=== PATIENT | female | born 1945 | race Caucasian/White ===

== ENCOUNTER 2017-09-17 08:27 | Emergency (ER) | payer MEDICARE, OTHER ==
[2017-09-17] MEDS ORDERED: DIPH,PERTUS(ACELL)TETVAC-LF 0.5 ML VIAL IM ONE (08:46)
--- NOTE | 2017-09-17 09:37 | CT ---
EXAMINATION TYPE: CT brain christine wo con DATE OF EXAM: 09/17/2017 COMPARISON: NONE HISTORY: fall today with chin and facial swelling CT DLP: 1731.9 mGycm, Automated exposure control for dose reduction was used. CONTRAST: None CT of the brain is performed utilizing 3 mm thick sections through the posterior fossa and 3 mm thick sections through the remaining calvarium. Study is performed within 24 hours of arrival to the hospital. No abnormal hyperdensity is present to suggest an acute intracranial hemorrhage. No mass lesion is evident. No acute infarcts are evident. There is some scattered deep white matter hypodensity, likely on the basis of chronic white matter ischemic changes. Ventricles and sulci are appropriate for the patient age. The frontal sinuses are aplastic. There is some fluid through the nasal passage. Small retention cyst within the left maxillary sinus. IMPRESSIONS: 1. Chronic appearing white matter changes. CT cervical spine. COMPARISON: None CT of the cervical spine is performed in the axial plane at 2 mm thick sections. Reconstructed image s in the coronal, and sagittal plane are reviewed on the computer. No acute fractures are evident. There appears to be a minimal grade 1 spondylolisthesis of C4 anteriorly on C5. Disc space narrowing is present C5-6. Foraminal stenosis present on the left at C3-4. Some central sp urring is present at C5. Moderate left foraminal stenosis at C5-6 is present. There is a tiny ossification at C5-6 disc level. Tiny avulsion from C6 is not excluded. This may be a chronic change. Correlate with location of the patient's pain. Vertebral body heights are preserved. No spinal canal stenosis is evident. IMPRESSIONS: 1. Tiny ossification posterior to the central C5-6 disc level. This could be calcification along the ligament. Tiny avulsion from C6 is not excluded. Correlate with the location of the patient's pain.
--- NOTE | 2017-09-17 09:40 | ED ---
Fall HPI - General Chief Complaint: Fall Stated Complaint: FALL Time Seen by Provider: 09/17/17 08:31 Source: patient, EMS, old records reviewed Mode of arrival: EMS Limitations: no limitations - History of Present Illness Initial Comments: This is a 72-year-old female presents emergency Department chief complaint of trip and fall. Patient states that she walking too fast this morning lost her balance and fell forward onto carpet. Patient complains of pain over her nose, chin region. She states that she did have a bloody nose which has subsided. She denies head, neck pain. She does complain of a laceration to her right forearm region. She is unsure when her last tetanus was. Patient denies any hip, back pain the usual denies any lower extremity injuries. Patient was transported wrist from via EMS. Patient was given no medications. Patient denies loss consciousness. - Related Data Home Medications Medication Instructions Recorded Confirmed Atenolol [Tenormin] 50 mg PO DAILY 08/13/17 09/17/17 Budesonide/Formoterol Fumarate 2 puff INHALATION RT-BID 08/13/17 09/17/17 [Symbicort 160-4.5 Mcg Inhaler] Clotrimazole Cream [Lotrimin Cream] 1 applic TOPICAL BID 08/13/17 09/17/17 Furosemide [Lasix] 20 mg PO DAILY 08/13/17 09/17/17 Metolazone [Zaroxolyn] 2.5 mg PO WEEKLY 08/13/17 09/17/17 Naproxen Sodium [Aleve] 220 mg PO BID PRN 08/13/17 09/17/17 Omeprazole 20 mg PO DAILY 08/13/17 09/17/17 Sertraline [Zoloft] 200 mg PO DAILY 08/13/17 09/17/17 Spironolactone 50 mg PO DAILY 08/13/17 09/17/17 Albuterol Inhaler [Ventolin Hfa 2 puff INHALATION RT-Q6H PRN 09/17/17 09/17/17 Inhaler] Albuterol Nebulized [Ventolin 2.5 mg INHALATION RT-QID PRN 09/17/17 09/17/17 Nebulized] DULoxetine HCL [Cymbalta] 20 mg PO DAILY 09/17/17 09/17/17 Meclizine [Antivert] 25 mg PO DAILY PRN 09/17/17 09/17/17 Potassium Chloride [K-Tab ER] 10 meq PO BID 09/17/17 09/17/17 Prochlorperazine [Compazine] 5 mg PO DAILY 09/17/17 09/17/17 predniSONE 50 mg PO DAILY 09/17/17 09/17/17 Previous Rx's Medication Instructions Recorded Amoxicillin/Potassium Clav 1 tab PO Q12HR #20 tab 09/17/17 [Augmentin 875-125 Tablet] Hydrocodone/Acetaminophen [[place] 1 tab PO Q6HR PRN #15 tab 09/17/17 5-325] Allergies Allergy/AdvReac Type Severity Reaction Status Date / Time Sulfa (Sulfonamide Allergy Rash/Hives Verified 09/17/17 09:50 Antibiotics) morphine AdvReac Nausea & Verified 09/17/17 09:50 Vomiting Review of Systems ROS Statement: Those systems with pertinent positive or pertinent negative responses have been documented in the HPI. ROS Other: All systems not noted in ROS Statement are negative. Past Medical History Past Medical History: Hypertension Additional Past Medical History / Comment(s): pneumonia, fibromyalgia, osteoarthritis History of Any Multi-Drug Resistant Organisms: MRSA Date of last positivie culture/infection: 08/13/17 MDRO Source:: LEG Past Surgical History: Appendectomy, Breast Surgery, Cholecystectomy, Hysterectomy, Orthopedic Surgery Additional Past Surgical History / Comment(s): Bilateral knee replacements Past Psychological History: Anxiety, Depression Smoking Status: Former smoker Past Alcohol Use History: None Reported Past Drug Use History: None Reported - Past Family History Mother Family Medical History: No Reported History Father Family Medical History: No Reported History General Exam Limitations: no limitations General appearance: alert, in no apparent distress Head exam: Present: atraumatic, normocephalic, normal inspection Eye exam: Present: normal appearance, PERRL, EOMI. Absent: scleral icterus, conjunctival injection, periorbital swelling, periorbital tenderness ENT exam: Present: normal oropharynx, mucous membranes moist, TM's normal bilaterally, normal external ear exam, other (There is dry blood noted in bilateral nares, moderate tenderness over the nasal bridge with edema and ecchymosis). Absent: normal exam (There is some ecchymosis noted of the anterior mandible region patient has no trismus) Neck exam: Present: normal inspection, full ROM. Absent: tenderness, meningismus, lymphadenopathy Respiratory exam: Present: normal lung sounds bilaterally. Absent: respiratory distress, wheezes, rales, rhonchi, stridor, chest wall tenderness Cardiovascular Exam: Present: regular rate, normal rhythm, normal heart sounds. Absent: systolic murmur, diastolic murmur, rubs, gallop, clicks Extremities exam: Present: other (There are multiple areas of ecchymosis over bilateral upper extremities most appear old, there is a 4 cm skin tear with some subcutaneous tissue noted there is no active bleeding patient is full range of motion of and nontender, remaining extremity exam within normal limits) Back exam: Present: full ROM. Absent: tenderness Neurological exam: Present: alert, oriented X3, CN II-XII intact, reflexes normal, other (Finger to nose intact bilaterally without overshooting). Absent : motor sensory deficit Skin exam: Present: warm, dry Course Vital Signs 09/17/17 08:30 Temperature 96.8 F L Pulse Rate 67 Respiratory 16 Rate Blood Pressure 138/72 O2 Sat by Pulse 94 L Oximetry Medical Decision Making - Medical Decision Making 72-year-old female presented emergency department for Fall. She Has a Nasal Bone Fracture, Had Epistaxis and Right Wrist/Forearm Laceration. The patient's laceration is a skin tear there is no closure done secondary to no skin to close. This was thoroughly cleaned by nursemichel. Patient will be discharged on antibiotics for her skin tear, nasal bone fracture. She'll follow up with ENT. Patient CT showed cannot exclude a C6 fracture though she has no tenderness and had no complaints of neck pain. Patient be discharged with pain medication with close follow-up and return parameters were discussed Disposition Clinical Impression: Fall, Nasal fracture, Epistaxis, Skin tear of right upper extremity, Facial contusion Disposition: HOME SELF-CARE Condition: Stable Instructions: Nasal Fracture (ED) Additional Instructions: Please return to the Emergency Department if symptoms worsen or any other concerns. Prescriptions: Amoxicillin/Potassium Clav [Augmentin 875-125 Tablet] 1 tab PO Q12HR #20 tab Hydrocodone/Acetaminophen [[place] 5-325] 1 tab PO Q6HR PRN #15 tab PRN Reason: Pain Referrals: Leeann Ansari DO [Primary Care Provider] - 1-2 days Wale Willett DO [Doctor of Osteopathic Medicine] - 1-2 days Time of Disposition: 10:02
--- NOTE | 2017-09-17 09:44 | CT ---
EXAMINATION TYPE: CT facial bones wo con DATE OF EXAM: 09/17/2017 COMPARISON: NONE HISTORY: fall today with chin and facial swelling CT DLP: 654.8 mGycm CONTRAST: None The paranasal sinuses are examined in the axial plane at 2 mm thick sections. Reconstructed images i n the coronal plane were obtained. The hypopharynx is visualized appears normal. Mandible and maxilla within the [id number]-uz-ynlv is withou t acute changes. Left maxillary sinus contains a small retention cyst inferiorly. Maxillary spine is intact. There is left septal deviation. Mid septal fracture is not excluded., Series 2 image 53. No anterior septal fr acture is evident however in the axial plane. Small anterior septal fracture may be present in the co allison plane, series 5 image 7. Scattered areas of ethmoid air cell mucosal thickening is present. S mall amount of mucosal thickenings within the anterior left sphenoid sinus. The frontal sinuses are aplastic. The septum is evaluated. There is septal deviation to the left. A left septal spur is also noted.. The right ostiomeatal unit is obstructed at the hiatus semilunaris. The left ostiomeatal unit is headley nt. IMPRESSIONS: 1. Suspected small fractures along the anterior and mid septum. 2. Left septal deviation likely chronic. 3. Scattered areas of mucosal thickening discussed above.
[2017-09-17] MEDS ORDERED: HYDROcodone/APAP 5-325MG 1 EACH TAB PO STA (09:58)
--- NOTE | 2017-09-17 10:06 | ED ---
Medical Decision Making - Medical Decision Making Additionally patient will be given a prescription for [place] J collar. Patient' s CT showed possible avulsion fracture is less likely because she has no tenderness patient will follow-up with Dr. Garduno Disposition Clinical Impression: Fall, Nasal fracture, Epistaxis, Skin tear of right upper extremity, Facial contusion Disposition: HOME SELF-CARE Condition: Stable Instructions: Nasal Fracture (ED) Additional Instructions: Please return to the Emergency Department if symptoms worsen or any other concerns. Prescriptions: Amoxicillin/Potassium Clav [Augmentin 875-125 Tablet] 1 tab PO Q12HR #20 tab Hydrocodone/Acetaminophen [[place] 5-325] 1 tab PO Q6HR PRN #15 tab PRN Reason: Pain Referrals: Wale Willett DO [Doctor of Osteopathic Medicine] - 1-2 days Leeann Ansari DO [Primary Care Provider] - 1-2 days Israel Peña DO [Doctor of Osteopathic Medicine] - 1-2 days
[2017-09-17 10:35] VITALS: BP 113/58; PULSE 65; RESP 18; TEMP 96.6
== END 2017-09-17 10:22 | disposition home or self-care (01) ==
LOC: EC 08:27
DX: S02.2XXA Fracture of nasal bones, initial encounter for closed fracture (principal); S51.811A Laceration without foreign body of right forearm, initial encounter; S00.83XA Contusion of other part of head, initial encounter; I10 Essential (primary) hypertension; Z23 Encounter for immunization; Z86.14 Personal history of Methicillin resistant Staphylococcus aureus infection; Z96.653 Presence of artificial knee joint, bilateral; Z87.891 Personal history of nicotine dependence; Z79.51 Long term (current) use of inhaled steroids; Z79.52 Long term (current) use of systemic steroids; Z79.899 Other long term (current) drug therapy; Z88.2 Allergy status to sulfonamides; Z88.5 Allergy status to narcotic agent; W01.0XXA Fall on same level from slipping, tripping and stumbling without subsequent striking against object, initial encounter; Y93.01 Activity, walking, marching and hiking
CPT/HCPCS: 70450; 70486; 72125; 90471; 90715; 99284

== ENCOUNTER 2019-10-20 10:21 | Emergency (ER) | payer MEDICARE, OTHER ==
[2019-10-20] MEDS ORDERED: SODIUM CHLORIDE 0.9% 1,000 ML IV STA (10:41)
[2019-10-20] MEDS ORDERED: methylPREDNISolone SOD SUCCI 125 MG/2 ML VIAL IV STA (10:41)
[2019-10-20] MEDS ORDERED: IPRATROPIUM-ALBUTEROL 3 ML NEB INHALATION STA ×2 (10:41→12:39)
--- NOTE | 2019-10-20 10:48 | ED ---
SOB HPI - General Chief Complaint: Shortness of Breath Stated Complaint: SOB Time Seen by Provider: 10/20/19 10:21 Source: patient, EMS, RN notes reviewed Mode of arrival: EMS Limitations: no limitations - History of Present Illness Initial Comments: This is a 74-year-old female with a history of COPD who states she had the onset shortness of breath with a slight cough and some phlegm over last 4 days she was diagnosed with bronchitis 2 weeks ago. She was brought in by EMS he reported a low-grade temperature 99.4. She was afebrile upon arrival. No chest pain no overt fevers chills sweats at home no rhinorrhea earaches sore throat no other modifying factors MD Complaint: shortness of breath - Related Data Home Medications Medication Instructions Recorded Confirmed Atenolol [Tenormin] 50 mg PO DAILY 08/13/17 10/20/19 Budesonide/Formoterol Fumarate 2 puff INHALATION RT-BID 08/13/17 10/20/19 [Symbicort 160-4.5 Mcg Inhaler] Furosemide [Lasix] 20 mg PO DAILY PRN 08/13/17 10/20/19 Metolazone [Zaroxolyn] 2.5 mg PO Q7D 08/13/17 10/20/19 Omeprazole 20 mg PO DAILY 08/13/17 10/20/19 Spironolactone 50 mg PO DAILY 08/13/17 10/20/19 Fluticasone Nasal [place] [Flonase 1 spr EA NOSTRIL DAILY 10/20/19 10/20/19 Nasal [place]] Loratadine [Claritin] 10 mg PO DAILY 10/20/19 10/20/19 Meclizine [Antivert] 25 mg PO Q8H PRN 10/20/19 10/20/19 Montelukast [Singulair] 10 mg PO DAILY 10/20/19 10/20/19 Nystatin 1 applic TOPICAL BID 10/20/19 10/20/19 Previous Rx's Medication Instructions Recorded Ipratropium-Albuterol Nebulize 1 neb INHALATION Q6HR PRN #120 neb 10/20/19 [Duoneb 0.5 mg-3 mg/3 ml Soln] predniSONE [Deltasone] 20 mg PO BID #10 tab 10/20/19 Allergies Allergy/AdvReac Type Severity Reaction Status Date / Time Sulfa (Sulfonamide Allergy Rash/Hives Verified 10/20/19 10:25 Antibiotics) morphine AdvReac Nausea & Verified 10/20/19 10:25 Vomiting Review of Systems ROS Statement: Those systems with pertinent positive or pertinent negative responses have been documented in the HPI. ROS Other: All systems not noted in ROS Statement are negative. Past Medical History Past Medical History: Hypertension Additional Past Medical History / Comment(s): pneumonia, fibromyalgia, osteoarthritis History of Any Multi-Drug Resistant Organisms: MRSA Date of last positivie culture/infection: 08/13/17 MDRO Source:: LEG Past Surgical History: Appendectomy, Breast Surgery, Cholecystectomy, Hysterectomy, Orthopedic Surgery Additional Past Surgical History / Comment(s): Bilateral knee replacements Past Psychological History: Anxiety, Depression Smoking Status: Former smoker Past Alcohol Use History: None Reported Past Drug Use History: None Reported - Past Family History Mother Family Medical History: No Reported History Father Family Medical History: No Reported History General Exam - General Exam Comments Initial Comments: This is a well-developed well-nourished awake alert oriented 3 female Limitations: no limitations General appearance: alert, in no apparent distress Head exam: Present: atraumatic, normocephalic, normal inspection Eye exam: Present: normal appearance, PERRL, EOMI. Absent: scleral icterus, conjunctival injection, periorbital swelling ENT exam: Present: mucous membranes dry Neck exam: Present: normal inspection. Absent: tenderness, meningismus, lymphadenopathy Respiratory exam: Present: normal lung sounds bilaterally. Absent: respiratory distress, wheezes, rales, rhonchi, stridor Cardiovascular Exam: Present: regular rate, normal rhythm, normal heart sounds. Absent: systolic murmur, diastolic murmur, rubs, gallop, clicks GI/Abdominal exam: Present: soft, normal bowel sounds. Absent: distended, t enderness, guarding, rebound, rigid Extremities exam: Present: normal inspection, full ROM, normal capillary refill. Absent: tenderness, pedal edema, joint swelling, calf tenderness Back exam: Present: normal inspection Neurological exam: Present: alert, oriented X3, CN II-XII intact Psychiatric exam: Present: normal affect, normal mood Skin exam: Present: warm, dry, intact, normal color. Absent: rash Course Vital Signs 10/20/19 10/20/1920 10:31 10:44 10:47 Temperature 98.9 F Pulse Rate 116 H 113 H Respiratory 20 Rate Blood Pressure 146/77 O2 Sat by Pulse 89 L 95 Oximetry 10/20/19 10/20/19 10/20/19 10:56 11:00 11:30 Temperature Pulse Rate 106 H 108 H Respiratory Rate Blood Pressure 146/77 159/91 O2 Sat by Pulse 99 99 Oximetry 10/20/19 10/20/19 10/20/19 12:00 12:30 13:05 Temperature Pulse Rate 101 H 97 96 Respiratory Rate Blood Pressure 162/87 169/82 O2 Sat by Pulse 100 100 Oximetry 10/20/19 13:15 Temperature Pulse Rate 97 Respiratory Rate Blood Pressure O2 Sat by Pulse Oximetry Medical Decision Making - Medical Decision Making I did review the imaging no evidence of acute findings at did discuss Pfizer the patient reevaluation she was had markedly improved aeration. Patient does want to go home after his second updraft she was improved and will go home she does need material for her nebulizer at home she'll be placed also on a short course of steroids - Lab Data Result diagrams: 10/20/19 10:35 10/20/19 10:35 Lab Results 10/20/19 10/20/19 10/20/19 Range/Units 10:35 10:35 10:35 WBC 8.1 (3.8-10.6) k/uL RBC 4.15 (3.80-5.40) m/uL Hgb 12.2 (11.4-16.0) gm/dL Hct 35.7 (34.0-46.0) % MCV 86.0 (80.0-100.0) fL MCH 29.4 (25.0-35.0) pg MCHC 34.2 (31.0-37.0) g/dL RDW 15.9 H (11.5-15.5) % Plt Count 118 L (150-450) k/uL Neutrophils % 79 % Lymphocytes % 13 % Monocytes % 3 % Eosinophils % 3 % Basophils % 0 % Neutrophils # 6.4 (1.3-7.7) k/uL Lymphocytes # 1.1 (1.0-4.8) k/uL Monocytes # 0.3 (0-1.0) k/uL Eosinophils # 0.3 (0-0.7) k/uL Basophils # 0.0 (0-0.2) k/uL Poikilocytosis Slight PT 10.8 (9.0-12.0) sec INR 1.1 (<1.2) APTT 22.7 (22.0-30.0) sec Sodium 137 (137-145) mmol/L Potassium 4.2 (3.5-5.1) mmol/L Chloride 101 (98-107) mmol/L Carbon Dioxide 27 (22-30) mmol/L Anion Gap 9 mmol/L BUN 16 (7-17) mg/dL Creatinine 1.03 (0.52-1.04) mg/dL Est GFR (CKD-EPI)AfAm 61 (>60 ml/min/1.73 sqM) Est GFR (CKD-EPI)NonAf 53 (>60 ml/min/1.73 sqM) Glucose 106 H (74-99) mg/dL Plasma Lactic Acid [place] (0.7-2.0) mmol/L Calcium 9.7 (8.4-10.2) mg/dL Magnesium 1.6 (1.6-2.3) mg/dL Total Bilirubin 1.2 (0.2-1.3) mg/dL AST 24 (14-36) U/L ALT 13 (4-34) U/L Alkaline Phosphatase 70 (38-126) U/L Creatine Kinase 42 (30-135) U/L Troponin I (0.000-0.034) ng/mL NT-Pro-B Natriuret Pep pg/mL Total Protein 7.3 (6.3-8.2) g/dL Albumin 3.8 (3.5-5.0) g/dL 10/20/19 10/20/19 10/20/19 Range/Units 10:35 10:35 10:35 WBC (3.8-10.6) k/uL RBC (3.80-5.40) m/uL Hgb (11.4-16.0) gm/dL Hct (34.0-46.0) % MCV (80.0-100.0) fL MCH (25.0-35.0) pg MCHC (31.0-37.0) g/dL RDW (11.5-15.5) % Plt Count (150-450) k/uL Neutrophils % % Lymphocytes % % Monocytes % % Eosinophils % % Basophils % % Neutrophils # (1.3-7.7) k/uL Lymphocytes # (1.0-4.8) k/uL Monocytes # (0-1.0) k/uL Eosinophils # (0-0.7) k/uL Basophils # (0-0.2) k/uL Poikilocytosis PT (9.0-12.0) sec INR (<1.2) APTT (22.0-30.0) sec Sodium (137-145) mmol/L Potassium (3.5-5.1) mmol/L Chloride (98-107) mmol/L Carbon Dioxide (22-30) mmol/L Anion Gap mmol/L BUN (7-17) mg/dL Creatinine (0.52-1.04) mg/dL Est GFR (CKD-EPI)AfAm (>60 ml/min/1.73 sqM) Est GFR (CKD-EPI)NonAf (>60 ml/min/1.73 sqM) Glucose (74-99) mg/dL Plasma Lactic Acid [place] 1.5 (0.7-2.0) mmol/L Calcium (8.4-10.2) mg/dL Magnesium (1.6-2.3) mg/dL Total Bilirubin (0.2-1.3) mg/dL AST (14-36) U/L ALT (4-34) U/L Alkaline Phosphatase (38-126) U/L Creatine Kinase (30-135) U/L Troponin I <0.012 (0.000-0.034) ng/mL NT-Pro-B Natriuret Pep 78 pg/mL Total Protein (6.3-8.2) g/dL Albumin (3.5-5.0) g/dL - EKG Data -: EKG Interpreted by Me EKG shows normal: sinus rhythm (Sinus tachycardia rate of 905257 QRS duration 76 QT since QTC 344/456 low-voltage nonspecific anterior configuration) - Radiology Data Radiology results: report reviewed (I did review the imaging and report no acute findings.), image reviewed Disposition Clinical Impression: Acute exacerbation of chronic obstructive pulmonary disease Disposition: HOME SELF-CARE Condition: Good Instructions (If sedation given, give patient instructions): COPD (Chronic Obstructive Pulmonary Disease) (ED) Additional Instructions: Medications sent here for for [facility] pharmacy Prescriptions: predniSONE [Deltasone] 20 mg PO BID #10 tab Ipratropium-Albuterol Nebulize [Duoneb 0.5 mg-3 mg/3 ml Soln] 1 neb INHALATION Q6HR PRN #120 neb PRN Reason: Dyspnea Is patient prescribed a controlled substance at d/c from ED?: No Referrals: Leeann Ansari DO [Primary Care Provider] - 1-2 days
[2019-10-20 11:00] LABS: Basophils % (A) 0 %; Eosinophils # (A) 0.3 k/uL (0-0.7); Eosinophils % (A) 3 %; HCT 35.7 % (34.0-46.0); HGB 12.2 gm/dL (11.4-16.0); Lymphocytes # (A) 1.1 k/uL (1.0-4.8); Lymphocytes % (A) 13 %; MCH 29.4 pg (25.0-35.0); MCHC 34.2 g/dL (31.0-37.0); Mean Platelet Volume 8.4; Monocytes # (A) 0.3 k/uL (0-1.0); Monocytes % (A) 3 %; Neutrophils # (A) 6.4 k/uL (1.3-7.7); Neutrophils % (A) 79 %; Platelet Count 118 k/uL (150-450); Poikilocytosis Slight; RBC 4.15 m/uL (3.80-5.40); RDW 15.9 % (11.5-15.5); WBC 8.1 k/uL (3.8-10.6)
[2019-10-20 11:02] LABS: Albumin 3.8 g/dL (3.5-5.0); Calcium 9.7 mg/dL (8.4-10.2); Magnesium 1.6 mg/dL (1.6-2.3); Potassium 4.2 mmol/L (3.5-5.1); Total Bilirubin 1.2 mg/dL (0.2-1.3); Total Protein 7.3 g/dL (6.3-8.2)
[2019-10-20 11:31] LABS: INR 1.1 (<1.2); Partial Thromboplastin Time 22.7 sec (22.0-30.0); Prothrombin Time 10.8 sec (9.0-12.0)
--- NOTE | 2019-10-20 11:32 | XR ---
EXAMINATION TYPE: XR chest 1V DATE OF EXAM: 10/20/2019 COMPARISON: 11/29/2015 HISTORY: Increasing shortness of breath for 3 days and recent treatment for bronchitis TECHNIQUE: Single frontal view of the chest is obtained. FINDINGS: There is no focal air space opacity, pleural effusion, or pneumothorax seen. Right hemidia phragm eventration is seen. The cardiac silhouette size is upper limits of normal size. The osseou s structures are intact. IMPRESSION: No acute cardiopulmonary process.
[2019-10-20 13:46] VITALS: BP 164/74; PULSE 99; RESP 18; TEMP 98.3
== END 2019-10-20 13:46 | disposition home or self-care (01) ==
LOC: EC 10:21
DX: J44.1 Chronic obstructive pulmonary disease with (acute) exacerbation (principal); I10 Essential (primary) hypertension; M19.90 Unspecified osteoarthritis, unspecified site; Z87.891 Personal history of nicotine dependence; Z88.2 Allergy status to sulfonamides; Z88.5 Allergy status to narcotic agent; Z79.51 Long term (current) use of inhaled steroids; Z79.899 Other long term (current) drug therapy; Z86.14 Personal history of Methicillin resistant Staphylococcus aureus infection; Z87.01 Personal history of pneumonia (recurrent); Z96.653 Presence of artificial knee joint, bilateral
CPT/HCPCS: 99285; 96374; 96361 ×3; 36415; 94640 ×2; 93005; 83880; 80053; 82550; 83605; 83735; 84484; 85025; 85610; 85730; 71045; J2930

== ENCOUNTER → 2020-09-14 | Outpatient (CLI) | payer MEDICARE, OTHER ==
--- NOTE | 2020-09-14 13:58 | P.SLEEP ---
History of Present Illness H&P Date: 09/14/20 this is a 74-year-old female patient with known history of COPD and obstructive sleep apnea. The patient was diagnosed having obstructive sleep apnea many years back. Currently she is not undergoing any treatment. She was told back then at a time of her diagnosis that she had a severe case with a probable AHI of more than 90. I do not have any documentation of her original polysomnogram. Currently she is on no treatment. His sleep quality has gotten very poor. She is unable to sleep in her bed. She is currently living in her living room where she is sleeping also and she watches TV and sleeps in a recliner. She goes to bed at various times and she wakes up at various times. Her sleep was very much fragmented and the patient wakes up every 2 hours with snoring and gasping for air. She also has cramping in lower extremities and nocturia. She wakes up very tired and sleepy during the day and she takes several naps. Her sleep schedule is becoming more and more irregular and her sleep is becoming more fragmented. She feels non-refreshed after a nap. No recent weight gain. No sleep paralysis. No hallucinations. No cataplexy. No chest pain. No cough sputum production chest tightness or wheezing. Her body weight has been essentially stable at 223 pounds. She has severe arthritis with bilateral knee surgeries in the patient's chronic back pain and she has difficulty with mobility and gait and she is moving around with the help of a power chair. Nevertheless, despite her limitation, she is very much interested in going back on CPAP therapy once the diagnosis of sleep apnea is confirmed.. Her current Nageezi score is 21. No substance abuse. No alcoholism. She is an ex-smoker and she quit smoking back in 2010 inches known to have COPD and she has been seen in our pulmonary clinic regarding her COPD and currently she is on a combination of Symbicort and one of the let she was on as the need basis. She also gives history of coronary artery disease and apparently she has had previous myocardial infarctions. No history of congestion heart failure. She is known to have hypertension and her blood pressure is under suboptimal control for now. No head trauma. No stroke. No cardiac arrhythmias. No atrial fibrillation. Her current Nageezi score is 21.she also has chronic pain and she has history of fibromyalgia. Review of Systems Constitutional: Reports daytime sleepiness, Reports fatigue, Reports weakness, Reports weight gain Eyes: denies as per HPI, denies blurred vision, denies bulging eye, denies decreased vision, denies diplopia, denies discharge, denies dry eye, denies i rritation, denies itching, denies pain, denies photophobia, denies loss of peripheral vision, denies loss of vision, denies tunnel vision/blind spots Ears: deny: decreased hearing, ear discharge, earache, tinnitus Ears, nose, mouth and throat: Reports as per HPI (the patient is edentulous and she has dentures) Breasts: absent: as per HPI (post bilateral mastectomy for fibrocystic disease) Cardiovascular: Denies chest pain, Denies shortness of breath Respiratory: Reports cough, Reports dyspnea, Reports snoring, Reports wheezing Gastrointestinal: Reports as per HPI Genitourinary: Reports as per HPI Menstruation: Reports as per HPI Musculoskeletal: Reports as per HPI, Reports limitation of motion, Reports low back pain Musculoskeletal: absent: ankle pain, ankle stiffness, ankle swelling Integumentary: Reports as per HPI Neurological: Reports as per HPI, Reports gait dysfunction, Reports weakness Psychiatric: Reports as per HPI Endocrine: Reports as per HPI, Reports fatigue Hematologic/Lymphatic: Reports as per HPI Allergic/Immunologic: Reports as per HPI Past Medical History Past Medical History: Coronary Artery Disease (CAD), COPD, Fibromyalgia, Hypertension, Musculoskeletal Disorder, Sleep Apnea/CPAP/BIPAP Additional Past Medical History / Comment(s): chronic back pain, severe osteoarthritis and the patient has difficult mobility and the patient is around with the help of a power chair, previous history of obstructive sleep apnea, hypertension, fibromyalgia, osteoarthritis, fibrocystic disease of the breast History of Any Multi-Drug Resistant Organisms: MRSA Date of last positivie culture/infection: 08/13/17 MDRO Source:: LEG Past Surgical History: Appendectomy, Breast Surgery, Cholecystectomy, Hysterectomy, Orthopedic Surgery Additional Past Surgical History / Comment(s): Bilateral knee replacements Past Psychological History: Anxiety, Depression Smoking Status: Former smoker (the patient quit smoking in 2010. Prior to that the patient was smoking around 2 pack of cigarettes a day since age of 14.) Past Alcohol Use History: None Reported Past Drug Use History: None Reported - Past Family History Mother Family Medical History: No Reported History Father Family Medical History: No Reported History Medications and Allergies Home Medications Medication Instructions Recorded Confirmed Type Budesonide/Formoterol Fumarate 2 puff INHALATION RT-BID 08/13/17 10/20/19 History [Symbicort 160-4.5 Mcg Inhaler] Furosemide [Lasix] 20 mg PO DAILY PRN 08/13/17 10/20/19 History Omeprazole 20 mg PO DAILY 08/13/17 10/20/19 History Spironolactone 50 mg PO DAILY 08/13/17 10/20/19 History atenoloL [Tenormin] 50 mg PO DAILY 08/13/17 10/20/19 History metOLazone [Zaroxolyn] 2.5 mg PO Q7D 08/13/17 10/20/19 History Fluticasone Nasal [place] [Flonase 1 spr EA NOSTRIL DAILY 10/20/19 10/20/19 History Nasal [place]] Ipratropium-Albuterol Nebulize 1 neb INHALATION Q6HR PRN #120 neb 10/20/19 Rx [Duoneb 0.5 mg-3 mg/3 ml Soln] Loratadine [Claritin] 10 mg PO DAILY 10/20/19 10/20/19 History Meclizine [Antivert] 25 mg PO Q8H PRN 10/20/19 10/20/19 History Montelukast [Singulair] 10 mg PO DAILY 10/20/19 10/20/19 History Nystatin 1 applic TOPICAL BID 10/20/19 10/20/19 History predniSONE [Deltasone] 20 mg PO BID #10 tab 10/20/19 Rx Allergies Allergy/AdvReac Type Severity Reaction Status Date / Time Sulfa (Sulfonamide Allergy Rash/Hives Verified 10/20/19 10:25 Antibiotics) morphine AdvReac Nausea & Verified 10/20/19 10:25 Vomiting Physical Exam The patient appeared well nourished and normally developed. Vital signs as documented. Head exam is unremarkable. No scleral icterus or corneal arcus noted. Neck is without jugular venous distension, thyromegaly, or carotid bruits. the patient has a Mallampati class IV. The patient is edentulous.Carotid upstrokes are brisk bilaterally. Lungs are clear to auscultation and percussion. Cardiac exam reveals the PMI to be normally sized and situated. Rhythm is regular. First and second heart sounds normal. No murmurs, rubs or gallops. Abdominal exam reveals normal bowel sounds, no masses, no organomegaly and no aortic enlargement. Extremities are nonedematous and both femoral and pedal pulses are normal.Examination of the skin revealed no evidence of significant rashes, suspicious appearing nevi or other concerning lesions.Neurologically, the patient is awake and alert and the patient does not have any focal neurological deficit. Cranial nerves are essentially intact. Assessment and Plan Plan: 1 obstructive sleep apnea, symptomatic and her condition is been further complicated by poor sleep hygiene measures, irregular sleep schedule in addition to sleep fragmentation related to obstructive sleep apnea. For now, the patient sleeping in a recliner. She has poor sleep hygiene measures. She is quite somnolent and sleepy during the day and her current upper score is 21. She is seeking help and she is looking for treatment and she is very much interested in going back on CPAP therapy. She claims that while on CPAP, she was sleeping much better sleep quality was great. Currently she is on no treatment. 2 edentulous with a Mallampati class IV 3 COPD maintained on Symbicort and DuoNeb neb regimen sound the clock 4 chronic back pain and severe osteoarthritis and currently the patient has gait dysfunction difficulty with mobility and the patient is walking with the help of a power chair 5 hypertension with suboptimal blood pressure control today's evaluation 6 fibromyalgia 7 history of fibrocystic disease of the breast and the patient has undergone bilateral mastectomy Plan The patient will need a screening probably sonogram to evaluate the presence of sleep apnea and evaluated severity and he said and treatment accordingly. I counseled extensively regarding sleep hygiene. She needs to maintain a regular sleep schedule. She needs to transition her still back to her bedroom and sleep in her bed and keep the head of the bed elevated and once his sleep apnea is confirmed we'll proceed with CPAP therapy. She has chronic pain. She has fibromas which obviously causes sleep fragmentation and frequent arousals along with alpha delta intrusion's. This is something to watch for in her upcoming polysomnogram. We'll also rule out the possibility of an acrylic and normal activity, restless leg and evaluate oxygenation as the patient may have a combination of COPD/obstructive sleep apnea/overlap syndrome. Further recommendations are to follow. Sleep Note - Sleep Data Previous Sleep Study: No - Sleep Note Sleep Note: Temperature: 97 8 Pulse Rate: 88 Respiratory Rate: 16 Blood Pressure: 167/105 SpO2: 95% on room air oxygen Height: [id number] Weight: 147 pounds BMI: 29.6 Neck Circumference: 15 Nageezi score is 21
== END | disposition home or self-care (01) ==
LOC: SLEEP 13:10
PROVIDERS: ATTEND Internal Medicine Critical Care Medicine
DX: G47.33 Obstructive sleep apnea (adult) (pediatric) (principal); J44.9 Chronic obstructive pulmonary disease, unspecified; G89.29 Other chronic pain; M54.5 Low back pain; M19.90 Unspecified osteoarthritis, unspecified site; I10 Essential (primary) hypertension; M79.7 Fibromyalgia; Z87.898 Personal history of other specified conditions; Z90.13 Acquired absence of bilateral breasts and nipples; Z79.899 Other long term (current) drug therapy; Z79.891 Long term (current) use of opiate analgesic; Z88.2 Allergy status to sulfonamides; Z88.5 Allergy status to narcotic agent; Z99.89 Dependence on other enabling machines and devices; I25.10 Atherosclerotic heart disease of native coronary artery without angina pectoris
CPT/HCPCS: 99211

== ENCOUNTER 2021-06-14 12:48 | Emergency (ER) | payer MEDICARE, OTHER ==
[2021-06-14 13:05] VITALS: RESP 18
--- NOTE | 2021-06-14 13:45 | XR ---
EXAMINATION TYPE: XR KUB DATE OF EXAM: 06/14/2021 1:38 PM CLINICAL HISTORY: Constipation. TECHNIQUE: Two Upright KUB images of the abdomen are obtained. COMPARISON: Abdominal x-ray September 26, 2012 FINDINGS: Redemonstration of lap band with abnormal increased phi angle. Position unchanged from mena or. Gas seen in nondistended stomach lap band. Scattered gas is seen in non-distended small bowel loo ps in the lower abdomen and pelvis. Gas and fecal material is seen in non-distended colon. Mild diffu se colonic fecal prominence. Cholecystectomy clips are redemonstrated. Lung bases remain clear. Multi level spurring and disc space narrowing in the thoracolumbar spine more prominent from prior. Scatter ed bilateral pelvic phleboliths redemonstrated. IMPRESSION: Overall nonobstructive bowel gas pattern. Mild diffuse colonic fecal stasis currently.
--- NOTE | 2021-06-14 13:49 | ED ---
General Adult HPI - General Source: patient, EMS Mode of arrival: EMS Limitations: no limitations <Gutierrez Rao - Last Filed: 06/14/21 14:45> <Ramona Araujo - Last Filed: 06/15/21 00:21> - General Chief complaint: Abdominal Pain Stated complaint: Constipation, Time Seen by Provider: 06/14/21 13:00 - History of Present Illness Initial comments: 75-year-old female with a past medical history of CAD, COPD, fibromyalgia, chronic back pain presents to the emergency room for a chief complaint of constipation. Patient reports she has been constipated for several weeks now. States she has not had a bowel movement for 2 weeks. Patient reports she has also had upper abdominal pain for a month now. States she has been seen at [facility] times before now for this and had CAT scan where they can find nothing wrong. Patient states she is scheduled for an EGD in 6 days for this. States she is not here for this pain as it is being investigated outpatient, but would like the constipation addressed. Patient has no other complaints at this time including shortness of breath, chest pain, nausea or vomiting, headache, or visual changes. (Gutierrez Rao) - Related Data Home Medications Medication Instructions Recorded Confirmed Omeprazole 20 mg PO DAILY 08/13/17 06/14/21 Allopurinol [Zyloprim] 100 mg PO DAILY 06/14/21 06/14/21 Dicyclomine [Bentyl] 10 mg PO TID 06/14/21 06/14/21 Famotidine [Pepcid] 40 mg PO DAILY 06/14/21 06/14/21 Fluticasone/Vilanterol [Breo 1 puff INHALATION RT-BID 06/14/21 06/14/21 Ellipta 100-25 Mcg Inhaler] HYDROcodone/APAP 5-325MG [[place] 2 tab PO Q8H PRN 06/14/21 06/14/21 5-325] Sucralfate [Carafate] 1 gm PO DAILY 06/14/21 06/14/21 Tiotropium 18 Mcg/Puff [Spiriva] 1 puff INHALATION RT-DAILY 06/14/21 06/14/21 atenoloL [Tenormin] 25 mg PO DAILY 06/14/21 06/14/21 Allergies Allergy/AdvReac Type Severity Reaction Status Date / Time Sulfa (Sulfonamide Allergy Rash/Hives Verified 06/14/21 14:01 Antibiotics) morphine AdvReac Nausea & Verified 06/14/21 14:01 Vomiting Review of Systems ROS Other: All systems not noted in ROS Statement are negative. <Gutierrez Rao P - Last Filed: 06/14/21 14:45> ROS Other: All systems not noted in ROS Statement are negative. <Ramona Araujo - Last Filed: 06/15/21 00:21> ROS Statement: Those systems with pertinent positive or pertinent negative responses have been documented in the HPI. Past Medical History Past Medical History: Coronary Artery Disease (CAD), COPD, Fibromyalgia, Hypertension, Musculoskeletal Disorder, Sleep Apnea/CPAP/BIPAP Additional Past Medical History / Comment(s): chronic back pain, severe osteoarthritis and the patient has difficult mobility and the patient is around with the help of a power chair, previous history of obstructive sleep apnea, hypertension, fibromyalgia, osteoarthritis, fibrocystic disease of the breast History of Any Multi-Drug Resistant Organisms: MRSA Date of last positivie culture/infection: 08/13/17 MDRO Source:: LEG Past Surgical History: Appendectomy, Breast Surgery, Cholecystectomy, Hysterectomy, Orthopedic Surgery Additional Past Surgical History / Comment(s): Bilateral knee replacements Past Psychological History: Anxiety, Depression Smoking Status: Former smoker Past Alcohol Use History: None Reported Past Drug Use History: None Reported - Past Family History Mother Family Medical History: No Reported History Father Family Medical History: No Reported History <Gutierrez Rao P - Last Filed: 06/14/21 14:45> General Exam Limitations: no limitations General appearance: alert, in no apparent distress Head exam: Present: atraumatic Eye exam: Present: normal appearance, PERRL, EOMI. Absent: scleral icterus, conjunctival injection ENT exam: Present: normal exam, mucous membranes moist Neck exam: Present: normal inspection, full ROM. Absent: tenderness Respiratory exam: Present: normal lung sounds bilaterally. Absent: respiratory distress, wheezes <Gutierrez Rao P - Last Filed: 06/14/21 14:45> GI/Abdominal exam: Present: soft, normal bowel sounds. Absent: distended, tenderness, guarding, rebound, rigid Rectal exam: Present: normal inspection, fecal impaction Neurological exam: Present: alert, oriented X3, CN II-XII intact Psychiatric exam: Present: normal affect, normal mood Skin exam: Present: warm, dry, intact, normal color. Absent: rash <Ramona Araujo - Last Filed: 06/15/21 00:21> Course Vital Signs 06/14/21 06/14/21 06/14/21 13:00 14:02 19:22 Temperature 98.9 F Pulse Rate 92 99 Respiratory 18 18 Rate Blood Pressure 170/92 152/86 O2 Sat by Pulse 96 95 Oximetry Medical Decision Making - Radiology Data Radiology results: report reviewed, image reviewed <Ramona Araujo - Last Filed: 06/15/21 00:21> - Medical Decision Making 75-year-old female patient presents to the emergency department today for reports of constipation. States she has been able to have a bowel movement. Physical examination did reveal soft nontender abdomen. X-ray showed colonic fecal stasis. Patient was given a milk and molasses enema was unable to hold in the fluid. Should have a small bowel movement but stated that she felt there was a large amount rate at the opening but wouldn't come out. I did perform digital disimpaction. This was successful. Patient is feeling better. She does feel comfortable being discharged home at this time. She is given a bottle of magnesium citrate. She is instructed to follow-up with her primary care physician for recheck in 1-2 days. Return parameters were discussed in detail. She verbalizes understanding and agrees with this plan. Dr. Verdugo. (Ramona Araujo) - Radiology Data KUB shows overall nonobstructive bowel gas pattern. Mild diffuse colonic fecal stasis currently. (Ramona Araujo) Disposition Is patient prescribed a controlled substance at d/c from ED?: No Time of Disposition: 14:45 <Gutierrez Rao - Last Filed: 06/14/21 14:45> Time of Disposition: 18:50 <Ramona Araujo - Last Filed: 06/15/21 00:21> Clinical Impression: Chronic abdominal pain, Constipation Disposition: HOME SELF-CARE Condition: Good Instructions (If sedation given, give patient instructions): Constipation (ED) Additional Instructions: Please take MiraLAX daily. Follow-up with your GI doctor for your EGD. Return to the emergency room for any worsening symptoms. Referrals: Sunny Reilly MD [Primary Care Provider] - 1-2 days
[2021-06-14 14:03] VITALS: TEMP 98.9
[2021-06-14] MEDS ORDERED: ACET/COD 300 MG/30 MG STARTER PACK 6 TAB BTL PO STA (16:22)
[2021-06-14] MEDS ORDERED: MAGNESIUM CITRATE 296 ML BOTTLE PO ONE (18:50)
[2021-06-14 19:24] VITALS: BP 152/86; PULSE 99
== END 2021-06-14 19:29 | disposition home or self-care (01) ==
LOC: EC 12:48
DX: K59.00 Constipation, unspecified (principal); I25.10 Atherosclerotic heart disease of native coronary artery without angina pectoris; J44.9 Chronic obstructive pulmonary disease, unspecified; I10 Essential (primary) hypertension; M19.90 Unspecified osteoarthritis, unspecified site
CPT/HCPCS: 74018; 99284

== ENCOUNTER 2021-06-22 19:03 | Emergency (ER) | payer MEDICARE, OTHER ==
[2021-06-22 20:31] VITALS: TEMP 99.1
--- NOTE | 2021-06-23 01:46 | ED ---
General Adult HPI - General Chief complaint: Abdominal Pain Stated complaint: constipation, abd pain Time Seen by Provider: 06/22/21 23:34 Source: patient, EMS, RN notes reviewed Mode of arrival: EMS Limitations: no limitations - History of Present Illness Initial comments: Patient is a 75-year-old female with history of heart disease, COPD, presenting to the emergency department via EMS with complaints of constipation. Patient states she did have a fall earlier today, she landed on her left arm. Patient states she did not hit her head at all, no neck pain. She is not on blood thinners. Patient states she's not too concerned with the fall that she had more so the constipation. Patient states she has not had a good bowel movement in about 4 weeks. She was here last week for similar complaint. She has yet to follow up with her doctor. She states she has an appointment on June 27. Patient admits to some abdominal pressure but no cystic areas of pain. No vomiting, no diarrhea, she is passing gas. Patient has history of hysterectomy, cholecystectomy, appendectomy. Patient denies any chest pain or short of breath. Patient has no further complaints. Patient's vital signs are stable upon arrival. - Related Data Home Medications Medication Instructions Recorded Confirmed Omeprazole 20 mg PO DAILY 08/13/17 06/14/21 Allopurinol [Zyloprim] 100 mg PO DAILY 06/14/21 06/14/21 Dicyclomine [Bentyl] 10 mg PO TID 06/14/21 06/14/21 Famotidine [Pepcid] 40 mg PO DAILY 06/14/21 06/14/21 Fluticasone/Vilanterol [Breo 1 puff INHALATION RT-BID 06/14/21 06/14/21 Ellipta 100-25 Mcg Inhaler] HYDROcodone/APAP 5-325MG [[place] 2 tab PO Q8H PRN 06/14/21 06/14/21 5-325] Sucralfate [Carafate] 1 gm PO DAILY 06/14/21 06/14/21 Tiotropium 18 Mcg/Puff [Spiriva] 1 puff INHALATION RT-DAILY 06/14/21 06/14/21 atenoloL [Tenormin] 25 mg PO DAILY 06/14/21 06/14/21 Allergies Allergy/AdvReac Type Severity Reaction Status Date / Time Sulfa (Sulfonamide Allergy Rash/Hives Verified 06/14/21 14:01 Antibiotics) morphine AdvReac Nausea & Verified 06/14/21 14:01 Vomiting Review of Systems ROS Statement: Those systems with pertinent positive or pertinent negative responses have been documented in the HPI. ROS Other: All systems not noted in ROS Statement are negative. Past Medical History Past Medical History: Coronary Artery Disease (CAD), COPD, Fibromyalgia, Hypertension, Musculoskeletal Disorder, Sleep Apnea/CPAP/BIPAP Additional Past Medical History / Comment(s): chronic back pain, severe osteoarthritis and the patient has difficult mobility and the patient is around with the help of a power chair, previous history of obstructive sleep apnea, hypertension, fibromyalgia, osteoarthritis, fibrocystic disease of the breast History of Any Multi-Drug Resistant Organisms: MRSA Date of last positivie culture/infection: 08/13/17 MDRO Source:: LEG Past Surgical History: Appendectomy, Breast Surgery, Cholecystectomy, Hysterectomy, Orthopedic Surgery Additional Past Surgical History / Comment(s): Bilateral knee replacements Past Psychological History: Anxiety, Depression Smoking Status: Former smoker Past Alcohol Use History: None Reported Past Drug Use History: None Reported - Past Family History Mother Family Medical History: No Reported History Father Family Medical History: No Reported History General Exam - General Exam Comments Initial Comments: GENERAL: Patient is well-developed and well-nourished. Patient is nontoxic and in no acute distress. HEAD: Atraumatic, normocephalic. EYES: Pupils equal round and reactive to light, extraocular movements intact, sclera anicteric, conjunctiva are normal. Eyelids were unremarkable. ENT: Oropharynx clear without exudates. Moist mucous membranes. NECK: Normal range of motion, supple without lymphadenopathy or JVD. LUNGS: Unlabored respirations. Breath sounds clear to auscultation bilaterally and e qual. No wheezes rales or rhonchi. HEART: Regular rate and rhythm without murmurs, rubs or gallops. ABDOMEN: Soft, nontender, normoactive bowel sounds. No guarding, no rebound. No masses appreciated. : Deferred MUSCULOSKELETAL: Normal extremities with adequate strength and normal range of motion, no pitting or edema. No clubbing or cyanosis. NEUROLOGICAL: Patient is alert and oriented x 3. Motor and sensory are also intact. Cranial nerves II through XII grossly intact. Symmetrical smile. Normal speech, normal gait. SKIN: Warm, Dry, normal turgor, no rashes. Patient has a superficial, 2 cm skin tear to the left elbow area, no active bleeding. Limitations: no limitations Rectal exam: Present: normal inspection, normal rectal tone. Absent: black stool, bloody stool, fecal impaction, hemorrhoids Course Vital Signs 06/22/21 06/23/21 20:26 03:49 Temperature 99.1 F Pulse Rate 82 84 Respiratory 19 20 Rate Blood Pressure 122/56 145/84 O2 Sat by Pulse 96 96 Oximetry Medical Decision Making - Medical Decision Making Patient is a 75-year-old female here via EMS with complaints of constipation. She did have a fall earlier today, she has a superficial skin tear to left elbow, no other specific areas of pain from the fall. She is on thinners. She continues to feel like she is constipated. KUB showed no acute process, no signs of constipation. She is requesting an enema, we did perform this, she had a small bowel movement. I did do a rectal exam, no fecal impaction. I recommended continuing with MiraLAX, she is a follow-up with her primary care. We did apply a dressing to her skin tear left forearm. She is stable for discharge. She is agreeable to this plan of care. Return parameters were discussed with her and she verbalized understanding. Case discussed with Dr. Arellano. Disposition Clinical Impression: Skin tear of left elbow without complication, Constipation Disposition: HOME SELF-CARE Condition: Stable Instructions (If sedation given, give patient instructions): Acute Wound Care (ED) Additional Instructions: Please return to the Emergency Department if symptoms worsen or any other concerns. Continue with MiraLAX daily for a stool softener. Keep wound on the left elbow clean and dry. Please follow-up with your primary care. Is patient prescribed a controlled substance at d/c from ED?: No Referrals: Sunny Reilly MD [Primary Care Provider] - 1-2 days Time of Disposition: 03:28
--- NOTE | 2021-06-23 02:26 | XR ---
EXAMINATION TYPE: Abdomen DATE OF EXAM: 06/23/2021 COMPARISON: 06/14/2021 HISTORY: Constipation TECHNIQUE: 2 views FINDINGS: There is gastric sleeve noted. There is no evidence of intestinal obstruction or pneumoperi toneum. Fecal pattern is fairly normal. Lung bases appear clear. IMPRESSION: Nonacute abdomen. No significant constipation seen.
[2021-06-23 03:50] VITALS: BP 145/84; PULSE 84; RESP 20
== END 2021-06-23 04:36 | disposition home or self-care (01) ==
LOC: EC 19:03
DX: K59.00 Constipation, unspecified (principal); S51.012A Laceration without foreign body of left elbow, initial encounter; W01.0XXA Fall on same level from slipping, tripping and stumbling without subsequent striking against object, initial encounter; I25.10 Atherosclerotic heart disease of native coronary artery without angina pectoris; J44.9 Chronic obstructive pulmonary disease, unspecified; I10 Essential (primary) hypertension; M19.90 Unspecified osteoarthritis, unspecified site; F41.9 Anxiety disorder, unspecified; F32.A Depression, unspecified; Z87.891 Personal history of nicotine dependence
CPT/HCPCS: 74018; 99283

== ENCOUNTER 2021-06-28 14:50 | Inpatient (IN) | payer MEDICARE, OTHER ==
--- NOTE | 2021-06-28 16:15 | XR ---
EXAMINATION TYPE: XR KUB DATE OF EXAM: 06/28/2021 COMPARISON: 06/23/2021 INDICATION: Constipation abdominal pain TECHNIQUE: Single view abdomen upright view FINDINGS: Lap band is present. Positioning is stable from comparison. There is a normal bowel gas pattern. Psoas margins are normal. No organomegaly is present. IMPRESSION: 1. Unremarkable Abdomen
[2021-06-28] MEDS ORDERED: SODIUM CHLORIDE 0.9% 1,000 ML IV STA (17:34)
[2021-06-28] MEDS ORDERED: KETOROLAC 15 MG/ML 1 ML VIAL IVP STA (17:34)
[2021-06-28 20:14] LABS: Basophils % (A) 0 %; Eosinophils # (A) 0.2 k/uL (0-0.7); Eosinophils % (A) 2 %; HGB 12.3 gm/dL (11.4-16.0); Lymphocytes # (A) 1.1 k/uL (1.0-4.8); Lymphocytes % (A) 10 %; MCH 28.9 pg (25.0-35.0); MCHC 32.4 g/dL (31.0-37.0); MCV 89.2 fL (80.0-100.0); Mean Platelet Volume 8.2; Monocytes # (A) 0.4 k/uL (0-1.0); Monocytes % (A) 3 %; Neutrophils # (A) 9.7 k/uL (1.3-7.7); Neutrophils % (A) 84 %; Platelet Count 157 k/uL (150-450); RBC 4.26 m/uL (3.80-5.40); RDW 15.7 % (11.5-15.5); WBC 11.5 k/uL (3.8-10.6)
[2021-06-28 20:23] LABS: Albumin 3.4 g/dL (3.5-5.0); Calcium 8.9 mg/dL (8.4-10.2); Potassium 4.7 mmol/L (3.5-5.1); Total Protein 6.6 g/dL (6.3-8.2)
[2021-06-28 20:29] LABS: INR 1.1 (<1.2); Partial Thromboplastin Time 24.1 sec (22.0-30.0); Prothrombin Time 11.4 sec (9.0-12.0)
--- NOTE | 2021-06-28 21:09 | CT ---
EXAMINATION TYPE: CT abdomen pelvis w con DATE OF EXAM: 06/28/2021 COMPARISON: HISTORY: abdominal pain CT DLP: 927.2 mGycm Automated exposure control for dose reduction was used. CONTRAST: Performed with IV Contrast, patient injected with 100 mL of Isovue 300. Lung bases are clear. There is no pleural effusion. There is gastric sleeve. There are clips from cho lecystectomy. Liver spleen pancreas appear intact. The bile ducts are nondilated. Stomach has normal size. There is no adrenal mass. Kidneys show satisfactory contrast opacification. There is no hydronephrosi s. Ureters are not dilated. There is no retroperitoneal adenopathy. There is retained fecal material in the rectum. Bladder distends smoothly. There is no pelvic mass. There is no free fluid in the pelv is. There is some mild presacral fluid. There is some mild rectal wall thickening. There is no mesenteric edema. There is no ascites or free air. There is no bowel obstruction. There are some spondylotic changes in the lumbar spine. No compression fracture. Bony pelvis is intac t. IMPRESSION: There is some mild rectal wall thickening and presacral fluid that could relate to colitis. There is some rectal fecal impaction. Mild constipation. Spondylotic changes in the lumbar spine with moderate L4-5 bony spinal stenosis.
--- NOTE | 2021-06-28 21:34 | ED ---
General Adult HPI - General Chief complaint: Abdominal Pain Stated complaint: bowel problems Time Seen by Provider: 06/28/21 17:15 Source: patient, RN notes reviewed, old records reviewed Mode of arrival: wheelchair Limitations: no limitations - History of Present Illness Initial comments: Patient is a 75-year-old female with past medical history remarkable for recurrent constipation, bedsores, CAD, COPD, fibromyalgia presents emergency Department complaining of abdominal pain as well as constipation. Patient was evaluated at GI clinic as an hour for further evaluation. She states she has not had a bowel movement for a few days and feels she is constipated. She is having rectal pressure. She is requesting that we do not perform a rectal this impaction. She will be connected enema, however states her abdomen is slightly worse than it typically is. Denies any chest pain. Describes abdominal pain as crampy, fullness sensation. Denies any urinary complaints. She has no other acute complaints at this time. She presents over concern for abdominal pain. - Related Data Home Medications Medication Instructions Recorded Confirmed Omeprazole 20 mg PO DAILY 08/13/17 06/28/21 Allopurinol [Zyloprim] 100 mg PO DAILY 06/14/21 06/28/21 Famotidine [Pepcid] 40 mg PO DAILY 06/14/21 06/28/21 Fluticasone/Vilanterol [Breo 1 puff INHALATION RT-BID 06/14/21 06/28/21 Ellipta 100-25 Mcg Inhaler] HYDROcodone/APAP 5-325MG [[place] 1 tab PO Q8H PRN 06/14/21 06/28/21 5-325] Sucralfate [Carafate] 1 gm PO DAILY 06/14/21 06/28/21 atenoloL [Tenormin] 25 mg PO DAILY 06/14/21 06/28/21 Ondansetron Odt [Zofran Odt] 8 mg PO Q8HR PRN 06/28/21 06/28/21 Tiotropium 2.5 Mcg/Puff [Spiriva 1 puff INHALATION RT-DAILY 06/28/21 06/28/21 Respimat 2.5 Mcg] Allergies Allergy/AdvReac Type Severity Reaction Status Date / Time Sulfa (Sulfonamide Allergy Rash/Hives Verified 06/14/21 14:01 Antibiotics) morphine AdvReac Nausea & Verified 06/14/21 14:01 Vomiting Review of Systems ROS Statement: Those systems with pertinent positive or pertinent negative responses have been documented in the HPI. Review of Systems: CONST: Denies fever EYES: Denies blurry vision ENT: Denies nasal congestion C/V: Denies Chest pain RESP: Denies shortness of breath GI: Endorses abdominal pain : Denies dysuria SKIN: Denies rash. MSK: Denies joint pain. NEURO: Denies headache ROS Other: All systems not noted in ROS Statement are negative. Past Medical History Past Medical History: Coronary Artery Disease (CAD), COPD, Fibromyalgia, Hypertension, Musculoskeletal Disorder, Sleep Apnea/CPAP/BIPAP Additional Past Medical History / Comment(s): chronic back pain, severe osteoarthritis and the patient has difficult mobility and the patient is around with the help of a power chair, previous history of obstructive sleep apnea, hypertension, fibromyalgia, osteoarthritis, fibrocystic disease of the breast History of Any Multi-Drug Resistant Organisms: MRSA Date of last positivie culture/infection: 08/13/17 MDRO Source:: LEG Past Surgical History: Appendectomy, Breast Surgery, Cholecystectomy, Hysterectomy, Orthopedic Surgery Additional Past Surgical History / Comment(s): Bilateral knee replacements Past Psychological History: Anxiety, Depression Smoking Status: Former smoker Past Alcohol Use History: None Reported Past Drug Use History: None Reported - Past Family History Mother Family Medical History: No Reported History Father Family Medical History: No Reported History General Exam - General Exam Comments Initial Comments: General: Appears in no acute distress. HEAD: Normal with no signs of head trauma. EYES: PERRLA, EOMI, conjunctiva normal, no discharge. ENT: Hearing grossly intact, normal oropharynx. RESPIRATORY: Clear breath sounds bilaterally. No wheezes, rales, or rhonchi. C/V: Regular rate and rhythm. S1 and S2 auscultated, no edema, peripheral pulses 2+ and intact throughout ABD: Abdomen is slightly distended, tender to palpation generalized. Slightly worse tenderness over the left lower quadrant. No guarding. No rebound tenderness. No peritoneal signs. Rectal exam revealed no stool palpated. No gross blood. EXT: Normal range of motion, no obvious deformity SKIN: Patient does have what appears to be a stage I and 2 ulcer that has some mild discharge and slight erythema surrounding her over the right buttock. Left buttock decubitus ulcers stage I. NEURO: Alert and oriented 4. No focal deficits. Limitations: no limitations Course Vital Signs 06/28/21 06/28/21 06/28/21 15:04 19:28 20:00 Temperature 98.4 F Pulse Rate 97 87 90 Respiratory 19 18 18 Rate Blood Pressure 147/68 167/112 167/112 O2 Sat by Pulse 96 95 97 Oximetry Medical Decision Making - Medical Decision Making Based on the patient's presentation and physical exam, I'm concerned for acute intra-abdominal process for current complaints. She states that the abdominal pain is worse than normal. She does have a history of constipation. This is a possibility, however without trauma other etiology at this time. Patient also appears to have a mildly cellulitic right buttock decubitus ulcer. There is no obvious purulence or drainage around it. However there is some erythema surrounding. Therefore we will obtain basic labs, EKG, CT abdomen and pelvis 12 intra-abdominal pathology. She was in agreement this plan. There was a delay in obtaining laboratory studies as well as multiple nurses attempted, and eventually I did place an ultrasound guided IV. Laboratory studies were remarkable for a mild leukocytosis of 11.5. Remainder of the labs are relatively unremarkable. EKG shows no signs of acute ischemia. CT abdomen and pelvis reveals wall thickening and presacral fluid that could be related to colitis some rectal fecal impaction. Mild constipation. No other acute findings. On reevaluation, did discuss rectal disimpaction versus enema. I will place to also admit her for her mild cellulitis seen on her decubitus ulcer. She states she has no help at home and is nervous going home this evening. She'll like to wait until she has help at home tomorrow. This is reasonable. Patient will be given IV antibiotics for her decubitus ulcer, a Fleet enema, and admitted to the hospital to observation. Spoke with the admitting physician, Dr. aguila was in agreement this plan. Patient was admitted in stable condition to observation. - Lab Data Result diagrams: 06/28/21 18:42 06/28/21 18:42 Lab Results 06/28/21 06/28/21 06/28/21 Range/Units 18:42 18:42 18:42 WBC 11.5 H (3.8-10.6) k/uL RBC 4.26 (3.80-5.40) m/uL Hgb 12.3 (11.4-16.0) gm/dL Hct 38.0 (34.0-46.0) % MCV 89.2 (80.0-100.0) fL MCH 28.9 (25.0-35.0) pg MCHC 32.4 (31.0-37.0) g/dL RDW 15.7 H (11.5-15.5) % Plt Count 157 (150-450) k/uL MPV 8.2 Neutrophils % 84 % Lymphocytes % 10 % Monocytes % 3 % Eosinophils % 2 % Basophils % 0 % Neutrophils # 9.7 H (1.3-7.7) k/uL Lymphocytes # 1.1 (1.0-4.8) k/uL Monocytes # 0.4 (0-1.0) k/uL Eosinophils # 0.2 (0-0.7) k/uL Basophils # 0.0 (0-0.2) k/uL PT 11.4 (9.0-12.0) sec INR 1.1 (<1.2) APTT 24.1 (22.0-30.0) sec Sodium 136 L (137-145) mmol/L Potassium 4.7 (3.5-5.1) mmol/L Chloride 101 (98-107) mmol/L Carbon Dioxide 22 (22-30) mmol/L Anion Gap 13 mmol/L BUN 18 H (7-17) mg/dL Creatinine 0.85 (0.52-1.04) mg/dL Est GFR (CKD-EPI)AfAm 77 (>60 ml/min/1.73 sqM) Est GFR (CKD-EPI)NonAf 67 (>60 ml/min/1.73 sqM) Glucose 80 (74-99) mg/dL Plasma Lactic Acid [place] (0.7-2.0) mmol/L Calcium 8.9 (8.4-10.2) mg/dL Total Bilirubin 1.0 (0.2-1.3) mg/dL AST 18 (14-36) U/L ALT 10 (4-34) U/L Alkaline Phosphatase 63 (38-126) U/L Total Protein 6.6 (6.3-8.2) g/dL Albumin 3.4 L (3.5-5.0) g/dL Amylase 59 (30-110) U/L Lipase 77 (23-300) U/L 06/28/21 Range/Units 18:42 WBC (3.8-10.6) k/uL RBC (3.80-5.40) m/uL Hgb (11.4-16.0) gm/dL Hct (34.0-46.0) % MCV (80.0-100.0) fL MCH (25.0-35.0) pg MCHC (31.0-37.0) g/dL RDW (11.5-15.5) % Plt Count (150-450) k/uL MPV Neutrophils % % Lymphocytes % % Monocytes % % Eosinophils % % Basophils % % Neutrophils # (1.3-7.7) k/uL Lymphocytes # (1.0-4.8) k/uL Monocytes # (0-1.0) k/uL Eosinophils # (0-0.7) k/uL Basophils # (0-0.2) k/uL PT (9.0-12.0) sec INR (<1.2) APTT (22.0-30.0) sec Sodium (137-145) mmol/L Potassium (3.5-5.1) mmol/L Chloride (98-107) mmol/L Carbon Dioxide (22-30) mmol/L Anion Gap mmol/L BUN (7-17) mg/dL Creatinine (0.52-1.04) mg/dL Est GFR (CKD-EPI)AfAm (>60 ml/min/1.73 sqM) Est GFR (CKD-EPI)NonAf (>60 ml/min/1.73 sqM) Glucose (74-99) mg/dL Plasma Lactic Acid [place] 1.1 (0.7-2.0) mmol/L Calcium (8.4-10.2) mg/dL Total Bilirubin (0.2-1.3) mg/dL AST (14-36) U/L ALT (4-34) U/L Alkaline Phosphatase (38-126) U/L Total Protein (6.3-8.2) g/dL Albumin (3.5-5.0) g/dL Amylase (30-110) U/L Lipase (23-300) U/L - EKG Data -: EKG Interpreted by Me EKG Comments: 12-lead Electrocardiogram Interpretation Note EKG was reviewed and interpreted by myself. 12-lead ECG performed at 1940 is interpreted by me as revealing normal sinus rhythm at a rate of 85 beats per minute. [place] is normal. [place] interval is 154 ms, QR faith 78 ms, QTc is 426 seconds.. There were no ST or T wave abnormalities to suggest myocardial ischemia or injury. R wave progression across the precordium was satisfactory. By my interpretation this EKG is non-diagnostic for acute ischemia. Disposition Clinical Impression: Constipation, Decubitus ulcer, Abdominal pain Disposition: ADMITTED IP TO THIS HOSP Condition: Stable Referrals: Leeann Ansari DO [Primary Care Provider] - 1-2 days
[2021-06-28] MEDS ORDERED: NA PHOS,M-B/NA PHOS,DI-BA 133 ML ENEMA RECTAL STA (21:55)
[2021-06-28] MEDS ORDERED: VANCOMYCIN IV PER PHARMACY 1 EACH MISC MISCELLANE PRN (21:55)
[2021-06-28] MEDS ORDERED: ONDANSETRON 4 MG/2 ML VIAL IVP PRN (22:21)
[2021-06-28] MEDS ORDERED: NALOXONE 0.4 MG/ML 1 ML VIAL IV PRN (22:21)
[2021-06-28] MEDS ORDERED: VANCOMYCIN 1,250 MG in SODIUM CHLORIDE 0.9% 250 ML IVPB ONE (23:00)
[2021-06-29] MEDS ORDERED: MORPHINE SULFATE 4 MG/ML SYRINGE ONE (00:50)
[2021-06-29] MEDS ORDERED: MORPHINE SULFATE 2 MG/ML SYRINGE IV ONE (00:50)
[2021-06-29] MEDS ORDERED: LORazepam 2 MG/ML INJ IV ONE (00:50)
[2021-06-29] MEDS ORDERED: LORazepam 2 MG/ML INJ ONE (00:50)
[2021-06-29 03:06] LABS: Appearance,Urine Clear (Clear); Bilirubin,Urine 1+ (Negative); Blood,Urine Negative (Negative); Color,Urine Yellow; Glucose,Urine (UA) Negative (Negative); Ketones,Urine 2+ (Negative); Leukocyte Esterase,Urine Negative (Negative); Nitrite,Urine Negative (Negative); PH, Urine 5.5 (5.0-8.0); Protein,Urine Trace (Negative); Specific Gravity,Urine 1.035 (1.001-1.035)
[2021-06-29] MEDS ORDERED: NON FORMULARY DRUG (Omeprazole [Omeprazole] 20 MG Capsule.Dr) PO SCH (09:00)
[2021-06-29] MEDS: SYMBICORT 80-4.5 MCG INHALER INHALATION SCH ×2 (09:57→20:12)
[2021-06-29] MEDS: IPRATROPIUM 0.5 MG/2.5 ML NEBU INHALATION SCH (09:57)
[2021-06-29] MEDS: allopurinoL 100 MG TAB PO SCH (10:06)
[2021-06-29] MEDS: atenoloL 25 MG TAB PO SCH (10:06)
[2021-06-29] MEDS: FAMOTIDINE 20 MG TAB PO SCH (10:06)
[2021-06-29] MEDS: polyethylene glycoL 3350 17 GM POWD.PACK PO SCH ×4 (10:08→23:34)
[2021-06-29] MEDS: KETOROLAC 30 MG/ML 1 ML VIAL IVP PRN ×3 (10:51→23:44)
--- NOTE | 2021-06-29 11:42 | P.GSCN ---
<Maya Pierce - Last Filed: 06/29/21 11:23> History of Present Illness Consult date: 06/29/21 History of present illness: CHIEF COMPLAINT: Abdominal pain HISTORY OF PRESENT ILLNESS: This is a 75-year-old female with a known history of constipation. Patient is confused and difficult to obtain history. Patient presents to emergency room with complaints of diffuse abdominal pain for the pas t 3 months. She also reports she has not been able to have a bowel movement. She is having flatus. Denies any nausea or vomiting. She reports that the pain has worsened and therefore presented to the ER. Computed tomography scan abdomen demonstrates some mild rectal wall thickening and presacral fluid that could relate to colitis. There is some rectal fecal impaction. Mild constipation. Fleet enema was ordered in ER. Patient had no bowel movement results with enema. Patient does have history of LAP-BAND. PAST MEDICAL HISTORY: See list. PAST SURGICAL HISTORY: See list. MEDICATIONS: See list. ALLERGIES: See list. SOCIAL HISTORY: No illicit drug use. REVIEW OF SYSTEMS: CONSTITUTIONAL: Denies fever or chills. HEENT: Denies blurred vision, vision changes, or eye pain. Denies hemoptysis CARDIOVASCULAR: Denies chest pain or pressure. RESPIRATORY: No shortness of breath. GASTROINTESTINAL: See HPI for pertinent findings HEMATOLOGIC: Denies bleeding disorders. GENITOURINARY: Denies any blood in urine or increased urinary frequency. SKIN: Denies pruitis. Denies rash. PHYSICAL EXAM: VITAL SIGNS: Reviewed GENERAL: Well-developed in no acute distress. HEENT: No sclera icterus. Extraocular movements grossly intact. Moist buccal mucosa. Head is atraumatic, normocephalic. No nasal drainage. ABDOMEN: Soft. Mildly distended. Diffuse tenderness. Candidiasis of abdominal skin fold NEUROLOGIC: Alert and oriented. Cranial nerves II through XII grossly intact. LABORATORY DATA: WBC is 11.5 Hgb 12.3 platelets 157 INR 1.1 Sodium 136 potassium 4.7 BUN 18 creatinine 0.85 Lactic acid 1.1 LFTs normal lipase 77 COVID-19 not detected Urinalysis negative for infection IMAGING: Computed tomography scan abdomen demonstrates some mild rectal wall thickening and presacral fluid that could relate to colitis. There is some rectal fecal impaction. Mild constipation. Spondylitic changes in the lumbar spine with moderate L4 to L5 bony spinal stenosis ASSESSMENT: 1. Abdominal pain 2. Fecal impaction 3. Constipation 4. Candidiasis of abdominal skin fold PLAN: -Patient will be scheduled for disimpaction under sedation tomorrow, 06/30/[address] Prakash -Clear liquid diet today -Nothing by mouth after midnight -Continue IV fluids -Nystatin powder to be applied to abdominal skin fold Thank you for this consultation Physician Band Tier note has been reviewed by physician. Signing provider agrees with the documented findings, assessment, and plan of care. Past Medical History Past Medical History: Coronary Artery Disease (CAD), COPD, Fibromyalgia, Hypertension, Musculoskeletal Disorder, Sleep Apnea/CPAP/BIPAP Additional Past Medical History / Comment(s): chronic back pain, severe osteoarthritis and the patient has difficult mobility and the patient is around with the help of a power chair, previous history of obstructive sleep apnea, hypertension, fibromyalgia, osteoarthritis, fibrocystic disease of the breast History of Any Multi-Drug Resistant Organisms: MRSA Year Discovered:: 08/13/17 MDRO Source:: LEG Past Surgical History: Appendectomy, Breast Surgery, Cholecystectomy, Hysterectomy, Orthopedic Surgery Additional Past Surgical History / Comment(s): Bilateral knee replacements Past Psychological History: Anxiety, Depression Smoking Status: Former smoker Past Alcohol Use History: None Reported Past Drug Use History: None Reported - Past Family History Mother Family Medical History: No Reported History Father Family Medical History: No Reported History Medications and Allergies Home Medications Medication Instructions Recorded Confirmed Type Omeprazole 20 mg PO DAILY 08/13/17 06/28/21 History Allopurinol [Zyloprim] 100 mg PO DAILY 06/14/21 06/28/21 History Famotidine [Pepcid] 40 mg PO DAILY 06/14/21 06/28/21 History Fluticasone/Vilanterol [Breo 1 puff INHALATION RT-BID 06/14/21 06/28/21 History Ellipta 100-25 Mcg Inhaler] HYDROcodone/APAP 5-325MG [[place] 1 tab PO Q8H PRN 06/14/21 06/28/21 History 5-325] Sucralfate [Carafate] 1 gm PO DAILY 06/14/21 06/28/21 History atenoloL [Tenormin] 25 mg PO DAILY 06/14/21 06/28/21 History Ondansetron Odt [Zofran Odt] 8 mg PO Q8HR PRN 06/28/21 06/28/21 History Tiotropium 2.5 Mcg/Puff [Spiriva 1 puff INHALATION RT-DAILY 06/28/21 06/28/21 History Respimat 2.5 Mcg] Allergies Allergy/AdvReac Type Severity Reaction Status Date / Time Sulfa (Sulfonamide Allergy Rash/Hives Verified 06/14/21 14:01 Antibiotics) morphine AdvReac Nausea & Verified 06/14/21 14:01 Vomiting Surgical - Exam Vital Signs Temp Pulse Resp BP Pulse Ox 98.4 F 97 19 147/68 96 06/28/21 15:04 06/28/21 15:04 06/28/21 15:04 06/28/21 15:04 06/28/21 15:04 Results - Labs 06/28/21 18:42 06/28/21 18:42 Abnormal Lab Results - Last 24 Hours (Table) 06/28/21 06/28/21 06/29/21 Range/Units 18:42 18:42 02:49 WBC 11.5 H (3.8-10.6) k/uL RDW 15.7 H (11.5-15.5) % Neutrophils # 9.7 H (1.3-7.7) k/uL Sodium 136 L (137-145) mmol/L BUN 18 H (7-17) mg/dL Albumin 3.4 L (3.5-5.0) g/dL Urine Protein Trace H (Negative) Urine Ketones 2+ H (Negative) Urine Bilirubin 1+ H (Negative) Diabetes panel 06/28/21 Range/Units 18:42 Sodium 136 L (137-145) mmol/L Potassium 4.7 (3.5-5.1) mmol/L Chloride 101 (98-107) mmol/L Carbon Dioxide 22 (22-30) mmol/L BUN 18 H (7-17) mg/dL Creatinine 0.85 (0.52-1.04) mg/dL Glucose 80 (74-99) mg/dL Calcium 8.9 (8.4-10.2) mg/dL AST 18 (14-36) U/L ALT 10 (4-34) U/L Alkaline Phosphatase 63 (38-126) U/L Total Protein 6.6 (6.3-8.2) g/dL Albumin 3.4 L (3.5-5.0) g/dL Calcium panel 06/28/21 Range/Units 18:42 Calcium 8.9 (8.4-10.2) mg/dL Albumin 3.4 L (3.5-5.0) g/dL Pituitary panel 06/28/21 Range/Units 18:42 Sodium 136 L (137-145) mmol/L Potassium 4.7 (3.5-5.1) mmol/L Chloride 101 (98-107) mmol/L Carbon Dioxide 22 (22-30) mmol/L BUN 18 H (7-17) mg/dL Creatinine 0.85 (0.52-1.04) mg/dL Glucose 80 (74-99) mg/dL Calcium 8.9 (8.4-10.2) mg/dL Adrenal panel 06/28/21 Range/Units 18:42 Sodium 136 L (137-145) mmol/L Potassium 4.7 (3.5-5.1) mmol/L Chloride 101 (98-107) mmol/L Carbon Dioxide 22 (22-30) mmol/L BUN 18 H (7-17) mg/dL Creatinine 0.85 (0.52-1.04) mg/dL Glucose 80 (74-99) mg/dL Calcium 8.9 (8.4-10.2) mg/dL Total Bilirubin 1.0 (0.2-1.3) mg/dL AST 18 (14-36) U/L ALT 10 (4-34) U/L Alkaline Phosphatase 63 (38-126) U/L Total Protein 6.6 (6.3-8.2) g/dL Albumin 3.4 L (3.5-5.0) g/dL <Moreno Prakash - Last Filed: 06/29/21 12:12> History of Present Illness History of present illness: As above. Patient confused. Was seen in the bariatric center yesterday with complaints of constipation and by history sound like she had possible impaction. CAT scan reviewed. Certainly impacted. No relief with enemas thus far. We'll take to the endoscopy suite tomorrow for flexible sigmoidoscopy with disimpaction. Patient is passing flatus. Denies abdominal pain currently. Surgical - Exam Vital Signs Temp Pulse Resp BP Pulse Ox 98.4 F 97 19 147/68 96 12/07/21 15:04 06/28/21 15:04 06/28/21 15:04 06/28/21 15:04 06/28/21 15:04 Results - Labs 06/28/21 18:42 06/28/21 18:42 Abnormal Lab Results - Last 24 Hours (Table) 06/28/21 06/28/21 06/29/21 Range/Units 18:42 18:42 02:49 WBC 11.5 H (3.8-10.6) k/uL RDW 15.7 H (11.5-15.5) % Neutrophils # 9.7 H (1.3-7.7) k/uL Sodium 136 L (137-145) mmol/L BUN 18 H (7-17) mg/dL Albumin 3.4 L (3.5-5.0) g/dL Urine Protein Trace H (Negative) Urine Ketones 2+ H (Negative) Urine Bilirubin 1+ H (Negative) Diabetes panel 06/28/21 Range/Units 18:42 Sodium 136 L (137-145) mmol/L Potassium 4.7 (3.5-5.1) mmol/L Chloride 101 (98-107) mmol/L Carbon Dioxide 22 (22-30) mmol/L BUN 18 H (7-17) mg/dL Creatinine 0.85 (0.52-1.04) mg/dL Glucose 80 (74-99) mg/dL Calcium 8.9 (8.4-10.2) mg/dL AST 18 (14-36) U/L ALT 10 (4-34) U/L Alkaline Phosphatase 63 (38-126) U/L Total Protein 6.6 (6.3-8.2) g/dL Albumin 3.4 L (3.5-5.0) g/dL Calcium panel 06/28/21 Range/Units 18:42 Calcium 8.9 (8.4-10.2) mg/dL Albumin 3.4 L (3.5-5.0) g/dL Pituitary panel 06/28/21 Range/Units 18:42 Sodium 136 L (137-145) mmol/L Potassium 4.7 (3.5-5.1) mmol/L Chloride 101 (98-107) mmol/L Carbon Dioxide 22 (22-30) mmol/L BUN 18 H (7-17) mg/dL Creatinine 0.85 (0.52-1.04) mg/dL Glucose 80 (74-99) mg/dL Calcium 8.9 (8.4-10.2) mg/dL Adrenal panel 06/28/21 Range/Units 18:42 Sodium 136 L (137-145) mmol/L Potassium 4.7 (3.5-5.1) mmol/L Chloride 101 (98-107) mmol/L Carbon Dioxide 22 (22-30) mmol/L BUN 18 H (7-17) mg/dL Creatinine 0.85 (0.52-1.04) mg/dL Glucose 80 (74-99) mg/dL Calcium 8.9 (8.4-10.2) mg/dL Total Bilirubin 1.0 (0.2-1.3) mg/dL AST 18 (14-36) U/L ALT 10 (4-34) U/L Alkaline Phosphatase 63 (38-126) U/L Total Protein 6.6 (6.3-8.2) g/dL Albumin 3.4 L (3.5-5.0) g/dL
[2021-06-29] MEDS: NYSTATIN 100,000 UNIT/GM POWD 15 GM TOPICAL SCH ×3 (12:23→23:04)
[2021-06-29] MEDS: PANTOPRAZOLE 40 MG/10 ML VIAL IVP SCH (15:26)
[2021-06-29] MEDS ORDERED: VANCOMYCIN 1,250 MG in SODIUM CHLORIDE 0.9% 250 ML IVPB SCH (16:00)
[2021-06-29] MEDS: ACETAMINOPHEN TAB 325 MG TAB PO PRN (19:43)
[2021-06-30] MEDS: polyethylene glycoL 3350 17 GM POWD.PACK PO SCH ×3 (05:33→17:39)
[2021-06-30] MEDS: KETOROLAC 30 MG/ML 1 ML VIAL IVP PRN (06:18)
[2021-06-30] MEDS: PANTOPRAZOLE 40 MG/10 ML VIAL IVP SCH (08:44)
[2021-06-30] MEDS: allopurinoL 100 MG TAB PO SCH (08:44)
[2021-06-30] MEDS: ENOXAPARIN 40 MG/0.4 ML SYRINGE SQ SCH (08:44)
[2021-06-30] MEDS: atenoloL 25 MG TAB PO SCH (08:44)
[2021-06-30] MEDS: ACETAMINOPHEN TAB 325 MG TAB PO PRN (08:45)
[2021-06-30] MEDS: NYSTATIN 100,000 UNIT/GM POWD 15 GM TOPICAL SCH ×3 (08:45→23:17)
[2021-06-30] MEDS: FAMOTIDINE 20 MG TAB PO SCH (08:53)
[2021-06-30] MEDS: IPRATROPIUM 0.5 MG/2.5 ML NEBU INHALATION SCH (09:04)
[2021-06-30] MEDS: SYMBICORT 80-4.5 MCG INHALER INHALATION SCH ×2 (09:05→22:00)
--- NOTE | 2021-06-30 09:15 | P.HPIM ---
History of Present Illness H&P Date: 06/29/21 Chief Complaint: abdominal pain Homa Wolfe is a 75 yo F with PMH of chronic constipation, GERD who presented to the ED complaining of abdominal pain and constipation worsening over the past few weeks. She complains that despite trying laxatives she has continued to experience generalized colicky abdominal pain. She was seen in the GI clinic and advised to come to the hospital. On presentation, vitals stable, WBC 11.5k, Cr 0.85, procalcitonin 0.09, COVID negative, UA negative. EKG NSR. CT abd/pelvis with mild colitis and moderate stool throughout. Review of Systems All systems: negative Constitutional: Reports malaise, Reports weakness, Denies chills, Denies fever Eyes: denies blurred vision, denies pain Ears, nose, mouth and throat: Denies headache, Denies sore throat Cardiovascular: Denies chest pain, Denies shortness of breath Respiratory: Denies cough Gastrointestinal: Reports abdominal pain, Reports bloating, Reports constipation, Denies diarrhea, Denies nausea, Denies vomiting Genitourinary: Denies dysuria, Denies hematuria Musculoskeletal: Denies myalgias Integumentary: Denies pruritus, Denies rash Neurological: Denies numbness, Denies weakness Psychiatric: Denies anxiety, Denies depression Endocrine: Denies fatigue, Denies weight change Past Medical History Past Medical History: Coronary Artery Disease (CAD), COPD, Fibromyalgia, Hypertension, Musculoskeletal Disorder, Sleep Apnea/CPAP/BIPAP Additional Past Medical History / Comment(s): chronic back pain, severe osteoarthritis and the patient has difficult mobility and the patient gets around with the help of a power chair, previous history of obstructive sleep apnea, hypertension, fibromyalgia, osteoarthritis, fibrocystic disease of the breast History of Any Multi-Drug Resistant Organisms: MRSA Date of last positivie culture/infection: 08/13/17 MDRO Source:: LEG Past Surgical History: Appendectomy, Breast Surgery, Cholecystectomy, Hysterectomy, Orthopedic Surgery Additional Past Surgical History / Comment(s): Bilateral knee replacements Smoking Status: Former smoker - Past Family History Mother Family Medical History: No Reported History Father Family Medical History: No Reported History Medications and Allergies Home Medications Medication Instructions Recorded Confirmed Type Omeprazole 20 mg PO DAILY 08/13/17 06/28/21 History Allopurinol [Zyloprim] 100 mg PO DAILY 06/14/21 06/28/21 History Famotidine [Pepcid] 40 mg PO DAILY 06/14/21 06/28/21 History Fluticasone/Vilanterol [Breo 1 puff INHALATION RT-BID 06/14/21 06/28/21 History Ellipta 100-25 Mcg Inhaler] HYDROcodone/APAP 5-325MG [[place] 1 tab PO Q8H PRN 06/14/21 06/28/21 History 5-325] Sucralfate [Carafate] 1 gm PO DAILY 06/14/21 06/28/21 History atenoloL [Tenormin] 25 mg PO DAILY 06/14/21 06/28/21 History Ondansetron Odt [Zofran Odt] 8 mg PO Q8HR PRN 06/28/21 06/28/21 History Tiotropium 2.5 Mcg/Puff [Spiriva 1 puff INHALATION RT-DAILY 06/28/21 06/28/21 History Respimat 2.5 Mcg] Allergies Allergy/AdvReac Type Severity Reaction Status Date / Time Sulfa (Sulfonamide Allergy Rash/Hives Verified 06/14/21 14:01 Antibiotics) morphine AdvReac Nausea & Verified 06/14/21 14:01 Vomiting Physical Exam Vitals: Vital Signs Temp Pulse Pulse Resp BP BP Pulse Ox 06/29/21 23:49 98.3 F 77 18 109/67 98 06/29/21 20:00 98.3 F 77 18 109/67 98 06/29/21 15:15 98.3 F 55 L 17 130/72 96 06/29/21 10:59 98.9 F 87 18 139/78 92 L 06/29/21 10:07 86 18 06/29/21 10:04 93 20 159/76 100 06/29/21 09:57 88 16 06/29/21 06:33 98.7 F 87 18 123/72 97 06/29/21 04:47 71 18 137/93 95 06/29/21 03:30 75 18 131/74 96 Intake and Output 06/29/21 06/29/21 06/30/21 14:59 22:59 06:59 Other: Voiding Method Bedside Commode Diaper # Voids 1 1 # Bowel Movements 1 1 Weight 66.224 kg General: well nourished, well developed, in mild distress. Vitals reviewed Eyes: PERRL, EOMI, conjunctiva normal HENT: normocephalic, mucus membranes moist Neck: supple, no JVD Lungs: normal respiratory effort, no wheezes or rales CV: Regular rate and rhythm, no murmur. Peripheral pulses 2+ Abdomen: soft, nondistended, tender throughout Lymph: no cervical or axillary LAD Skin: warm and dry. Neuro: A&Ox3, normal mood and affect Results CBC & Chem 7: 06/28/21 18:42 06/28/21 18:42 Labs: Abnormal Lab Results - Last 24 Hours (Table) 06/29/21 Range/Units 02:49 Urine Protein Trace H (Negative) Urine Ketones 2+ H (Negative) Urine Bilirubin 1+ H (Negative) Thrombosis Risk Factor Assmnt - Choose All That Apply Each Factor Represents 1 point: Abnormal pulmonary function (COPD), Obesity (BMI >25) Each Risk Factor Represents 3 Points: Age 75 years or older, Family history of DVT/PE Thrombosis Risk Factor Assessment Total Risk Factor Score: 8 Thrombosis Risk Factor Assessment Level: High Risk Assessment and Plan Plan: 1. Abdominal pain, history of chronic constipation. Suspect constipation. Start miralax q6h; surgery consult 2. Decubitus ulcer. No evidence of systemic infection. Procalcitonin negative. Pt loaded on vancomycin in the ED, stop systemic abx. Wound team consult 3. GERD. Continue protonix 4. HTN. Continue atenolol DVT prophylaxis lovenox
[2021-06-30] MEDS ORDERED: LIDOCAINE 1% INJ 10MG/ML (20 ML MDV) ONE (12:49)
[2021-06-30] MEDS ORDERED: PROPOFOL 10 MG/ML 20 ML VIAL IV ONE (12:49)
[2021-06-30] MEDS ORDERED: IV FLUID CONTINUATION 1,000 ML IV ONE (12:51)
[2021-06-30 13:17] VITALS: BMI 29.5
--- NOTE | 2021-06-30 14:30 | P.PN ---
Subjective Progress Note Date: 06/30/21 Homa Wolfe is a 75 yo F with PMH of chronic constipation, GERD who presented to the ED complaining of abdominal pain and constipation worsening over the past few weeks. She complains that despite trying laxatives she has continued to experience generalized colicky abdominal pain. She was seen in the GI clinic and advised to come to the hospital. On presentation, vitals stable, WBC 11.5k, Cr 0.85, procalcitonin 0.09, COVID negative, UA negative. EKG NSR. CT abd/pelvis with mild colitis and moderate stool throughout. 06/30/2021 reports abdominal discomfort unchanged. Continues on MiraLAX. Pass ing flatus. States no bowel movement in greater than 2 days, denies nausea or vomiting. Denies blood in stool. Maintained on gentle IV fluid hydration. Evaluated by surgery and scheduled for flex sigmoidoscopy with disimpaction today. Afebrile, vital signs stable, maintaining O2 sats in the 90s-100% on room air. Objective - Vital Signs Vital signs: Vital Signs Temp 98.5 F 06/30/21 07:00 Pulse 88 06/30/21 09:16 Resp 18 06/30/21 09:16 BP 139/75 06/30/21 07:00 Pulse Ox 94 L 06/30/21 07:00 Intake & Output 06/29/21 06/30/21 06/30/21 18:59 06:59 18:59 Intake Total 240 50 Balance 240 50 Weight 66.224 kg 66.224 kg Intake: IV 240 50 kvo 240 Other: Voiding Method Bedside Commode Diaper Diaper Incontinent # Voids 1 1 1 # Bowel Movements 1 1 1 - Exam General: Being in bed, in mild distress. Vitals reviewed Eyes: PERRL, EOMI, conjunctiva normal HENT: normocephalic, mucus membranes dry Neck: supple, no JVD Lungs: normal respiratory effort, no wheezes or rales CV: Regular rate and rhythm, no murmur. Peripheral pulses 2+ Abdomen: soft, nondistended, diffuse tenderness throughout Skin: warm and dry. Skin folds pink,yeasty, right coccyx/buttock pressure ulcer stage II. Neuro: A&Ox3, normal mood and affect - Labs CBC & Chem 7: 06/28/21 18:42 06/28/21 18:42 Assessment and Plan Assessment: Abdominal pain in a patient with history of chronic constipation, fecal impaction. Decubitus ulcer with no evidence of systemic infection, wound care team following Gastroesophageal reflux disease Pressure ulcer stage II, right coccyx, buttock Hypertension Candidasis Plan: Continue on current medication regime ,monitoring and symptomatic treatment. Gentle IV fluid hydration, maintain MiraLAX. Nothing by mouth, scheduled for flex sigmoidoscopy with disimpaction. Wound care as per wound care team. The impression and plan of care has been dictated as directed. : I performed a history and examination of this patient, discussed the same with the dictator. I agree with the dictator's note ,documented as a scribe. Any additional findings or plans will be noted.
--- NOTE | 2021-06-30 15:00 | P.OP ---
Date of Procedure: 06/30/21 Procedure(s) Performed: PREOPERATIVE DIAGNOSIS: Fecal impaction, proctitis POSTOPERATIVE DIAGNOSIS: Same PROCEDURE: Flexible sigmoidoscopy with manual disimpaction ANESTHESIA: MAC SURGEON: Moreno Prakash M.D. SPECIMENS: None ENDOSCOPIC PROCEDURE: The patient was placed on the endoscopy table in the left decubitus position. Manually I disimpacted approximately 10 ounces to 12 ounces of solid firm stool. I could not palpate any additional stool proximally. The Olympus colonoscopy was inserted in the anus and passed to the mid sigmoid. Obviously the mucosal services were difficult to visualize. We irrigated approximately 500 mL of water. The patient's mucosa had some mild erythema but no frankly ischemic changes noted. Small hemorrhoids were noted. No visible diverticulosis. Scope was withdrawn. RECOMMENDATIONS: Resume diet. Magnesium citrate today.
[2021-06-30] MEDS ORDERED: MAGNESIUM CITRATE 296 ML BOTTLE PO ONE (15:30)
[2021-07-01] MEDS: polyethylene glycoL 3350 17 GM POWD.PACK PO SCH ×3 (00:08→13:30)
[2021-07-01 04:57] LABS: Anisocytosis Slight; Basophils % (A) 0 %; Eosinophils # (A) 0.2 k/uL (0-0.7); Eosinophils % (A) 2 %; HCT 33.2 % (34.0-46.0); HGB 10.8 gm/dL (11.4-16.0); Hypochromasia Slight; Lymphocytes # (A) 0.8 k/uL (1.0-4.8); Lymphocytes % (A) 10 %; MCH 29.4 pg (25.0-35.0); MCHC 32.4 g/dL (31.0-37.0); MCV 90.7 fL (80.0-100.0); Monocytes # (A) 0.2 k/uL (0-1.0); Monocytes % (A) 3 %; Neutrophils # (A) 6.8 k/uL (1.3-7.7); Neutrophils % (A) 84 %; Platelet Count 133 k/uL (150-450); RBC 3.66 m/uL (3.80-5.40); RDW 16.7 % (11.5-15.5); WBC 8.1 k/uL (3.8-10.6)
[2021-07-01 05:11] LABS: Calcium 8.3 mg/dL (8.4-10.2); Potassium 4.5 mmol/L (3.5-5.1)
[2021-07-01] MEDS: KETOROLAC 30 MG/ML 1 ML VIAL IVP PRN (05:49)
[2021-07-01] MEDS: SYMBICORT 80-4.5 MCG INHALER INHALATION SCH (08:24)
[2021-07-01] MEDS: IPRATROPIUM 0.5 MG/2.5 ML NEBU INHALATION SCH (08:24)
[2021-07-01] MEDS ORDERED: SODIUM CHLORIDE 0.9% 1,000 ML IV SCH (09:15)
--- NOTE | 2021-07-01 09:37 | P.CONS ---
History of Present Illness - Reason for Consult Consult date: 07/01/21 Wound care - History of Present Illness This is a 75-year-old patient who is wheelchair-bound. Who is being seen on observation for nonhealing ulceration to the right and left buttocks. Patient has a ulceration to the left buttocks measuring approximately 0.2 x 0.2 x 0.1 cm with fat layer exposure wound edges are attached to the wound base, no tunneling or Undermining noted. Granulation seen throughout the wound bed with minimal slough. The right buttocks has an ulceration that measures 4 x 3 x 0.1 cm Limited to skin breakdown. Granulation seen within the wound bed, no toenail on undermining noted wound edges are attached to the wound base. Review Of Systems: Constitutional: No fever, no chills, no night sweats. No weight change. No weakness, fatigue or lethargy. No daytime sleepiness. Integumentary:reports wounds, no lesions. No rash or pruritus. No unusual bruising. No change in hair or nails. Physical exam: General Appearance: Alert, cooperative, no distress, appears stated age. Skin: See HPI all other Skin color, texture, tugor normal, no rashes or lesions. Neurologic: Alert oriented x3 Assessment: 1. Pressure ulcer stage II right buttocks 2. Pressure ulcer stage II left buttocks Plan: 1.Apply honey gel, dry gauze, and sacral border foam. Turn patient every 2 hours. While the patient is sitting utilize the air-filled cushion. Thank you for the consultation any questions please contact the wound care center DNP note has been reviewed and discussed with Dr. Moise and the impression and plan of care has been directed as dictated. Past Medical History Past Medical History: Coronary Artery Disease (CAD), COPD, Fibromyalgia, Hypert ension, Musculoskeletal Disorder, Sleep Apnea/CPAP/BIPAP Additional Past Medical History / Comment(s): chronic back pain, severe osteoarthritis and the patient has difficult mobility and the patient gets around with the help of a power chair, previous history of obstructive sleep apnea, hypertension, fibromyalgia, osteoarthritis, fibrocystic disease of the breast History of Any Multi-Drug Resistant Organisms: MRSA Year Discovered:: 08/13/17 MDRO Source:: LEG Past Surgical History: Appendectomy, Breast Surgery, Cholecystectomy, Hysterectomy, Orthopedic Surgery Additional Past Surgical History / Comment(s): Bilateral knee replacements Smoking Status: Former smoker - Past Family History Mother Family Medical History: No Reported History Father Family Medical History: No Reported History Medications and Allergies Home Medications Medication Instructions Recorded Confirmed Type Omeprazole 20 mg PO DAILY 08/13/17 06/28/21 History Allopurinol [Zyloprim] 100 mg PO DAILY 06/14/21 06/28/21 History Fluticasone/Vilanterol [Breo 1 puff INHALATION RT-BID 06/14/21 06/28/21 History Ellipta 100-25 Mcg Inhaler] HYDROcodone/APAP 5-325MG [[place] 1 tab PO Q8H PRN 06/14/21 06/28/21 History 5-325] Sucralfate [Carafate] 1 gm PO DAILY 06/14/21 06/28/21 History atenoloL [Tenormin] 25 mg PO DAILY 06/14/21 06/28/21 History Ondansetron Odt [Zofran ODT] 8 mg PO Q8HR PRN 06/28/21 06/28/21 History Tiotropium 2.5 Mcg/Puff [Spiriva 1 puff INHALATION RT-DAILY 06/28/21 06/28/21 History Respimat 2.5 Mcg] Nystatin 100,000 Unit/gm Powd 1 applic TOPICAL TID 07/01/21 Rx [Mycostatin Powder] polyethylene glycoL 3350 [Miralax] 17 gm PO DAILY packet 07/01/21 Rx Allergies Allergy/AdvReac Type Severity Reaction Status Date / Time Sulfa (Sulfonamide Allergy Rash/Hives Verified 06/14/21 14:01 Antibiotics) morphine AdvReac Nausea & Verified 06/14/21 14:01 Vomiting Physical Exam Vitals: Vital Signs Temp Pulse Pulse Resp BP Pulse Ox 07/01/21 08:36 80 07/01/21 08:26 84 07/01/21 07:52 98.7 F 85 16 118/71 93 L 06/30/21 22:44 98.4 F 83 102/63 97 06/30/21 19:50 17 06/30/21 15:00 18 06/30/21 14:47 69 115/69 96 06/30/21 14:32 69 116/63 96 06/30/21 14:17 68 107/68 93 L 06/30/21 14:10 98 F 70 22 103/55 100 06/30/21 14:02 69 118/67 97 Intake and Output 06/30/21 07/01/21 07/01/21 22:59 06:59 14:59 Other: Voiding Method Diaper Incontinent # Voids 1 1 # Bowel Movements 1 1 Results CBC & Chem 7: 07/01/21 04:25 07/01/21 04:24 Labs: Abnormal Lab Results - Last 24 Hours (Table) 07/01/21 07/01/21 Range/Units 04:24 04:25 RBC 3.66 L (3.80-5.40) m/uL Hgb 10.8 L (11.4-16.0) gm/dL Hct 33.2 L (34.0-46.0) % RDW 16.7 H (11.5-15.5) % Plt Count 133 L (150-450) k/uL Lymphocytes # 0.8 L (1.0-4.8) k/uL Chloride 108 H (98-107) mmol/L Carbon Dioxide 20 L (22-30) mmol/L BUN 21 H (7-17) mg/dL Creatinine 1.27 H (0.52-1.04) mg/dL Calcium 8.3 L (8.4-10.2) mg/dL Assessment and Plan (1) Pressure ulcer of right buttock, stage 2 Current Visit: Yes Status: Acute Code(s): L89.312 - PRESSURE ULCER OF RIGHT BUTTOCK, STAGE 2 SNOMED Code(s): 26697929042907161 (2) Pressure ulcer of left buttock, stage 2 Current Visit: Yes Status: Acute Code(s): L89.322 - PRESSURE ULCER OF LEFT BUTTOCK, STAGE 2 SNOMED Code(s): 07825448777426012
--- NOTE | 2021-07-01 09:38 | P.DS ---
Providers Date of admission: 06/30/21 07:39 Expected date of discharge: 07/01/21 Attending physician: Sunny Reilly MD Consults: 06/29/21 09:18 Consult Physician Routine Consulting Provider: Moreno Prakash Consult Reason/Comments: abdominal pain Do you want consulting provider notified?: Already Contacted Primary care physician: Leeann Ansari Hospital Course: Final Diagnoses: Abdominal pain in a patient with history of chronic constipation, fecal impaction. Acute renal insufficiency secondary to the above Pressure ulcer stage II, right coccyx, buttock with no evidence of systemic infection Gastroesophageal reflux disease Hypertension Candidasis, skin folds Hospital course:Homa Wolfe is a 75 yo F with PMH of chronic constipation, GERD who presented to the ED complaining of abdominal pain and constipation worsening over the past few weeks. She complains that despite trying laxatives she has continued to experience generalized colicky abdominal pain. She was seen in the GI clinic and advised to come to the hospital. On presentation, vitals stable, WBC 11.5k, Cr 0.85, procalcitonin 0.09, COVID negative, UA negative. EKG NSR. CT abd/pelvis with mild colitis and moderate stool throughout. 06/30/2021 reports abdominal discomfort unchanged. Continues on MiraLAX. Passing flatus. States no bowel movement in greater than 2 days, denies nausea or vomiting. Denies blood in stool. Maintained on gentle IV fluid hydration. Evaluated by surgery and scheduled for flex sigmoidoscopy with disimpaction today. Afebrile, vital signs stable, maintaining O2 sats in the 90s-100% on room air. Underwent flex sigmoidoscopy with manual disimpaction, glucose at some mild erythema but no frankly ischemic changes noted, small hemorrhoids noted, no visible diverticulosis. Tolerated procedure well. Mild acute renal insufficiency post procedure, receiving gentle IV fluid hydration prior to discharge. Denies nausea, vomiting. Denies abdominal pain. Patient will be discharged home today in a stable condition. The impression and plan of care has been dictated as directed. : I performed a history and examination of this patient, discussed the same with the dictator. I agree with the dictator's note ,documented as a scribe. Any additional findings or plans will be noted. Patient Condition at Discharge: Stable Plan - Discharge Summary Discharge Rx Participant: Yes New Discharge Prescriptions: New Nystatin 100,000 Unit/gm Powd [Mycostatin Powder] 1 applic TOPICAL TID polyethylene glycoL 3350 [Miralax] 17 gm PO DAILY packet Continue Omeprazole 20 mg PO DAILY Sucralfate [Carafate] 1 gm PO DAILY atenoloL [Tenormin] 25 mg PO DAILY Allopurinol [Zyloprim] 100 mg PO DAILY Ondansetron Odt [Zofran ODT] 8 mg PO Q8HR PRN PRN Reason: Nausea And Vomiting HYDROcodone/APAP 5-325MG [[place] 5-325] 1 tab PO Q8H PRN PRN Reason: Pain Fluticasone/Vilanterol [Breo Ellipta 100-25 Mcg Inhaler] 1 puff INHALATION RT-BID Tiotropium 2.5 Mcg/Puff [Spiriva Respimat 2.5 Mcg] 1 puff INHALATION RT-DAILY Discontinued Famotidine [Pepcid] 40 mg PO DAILY Discharge Medication List Omeprazole 20 mg PO DAILY 08/13/17 [History] Allopurinol [Zyloprim] 100 mg PO DAILY 06/14/21 [History] Fluticasone/Vilanterol [Breo Ellipta 100-25 Mcg Inhaler] 1 puff INHALATION RT- BID 06/14/21 [History] HYDROcodone/APAP 5-325MG [[place] 5-325] 1 tab PO Q8H PRN 06/14/21 [History] Sucralfate [Carafate] 1 gm PO DAILY 06/14/21 [History] atenoloL [Tenormin] 25 mg PO DAILY 06/14/21 [History] Ondansetron Odt [Zofran ODT] 8 mg PO Q8HR PRN 06/28/21 [History] Tiotropium 2.5 Mcg/Puff [Spiriva Respimat 2.5 Mcg] 1 puff INHALATION RT-DAILY 06/28/21 [History] Nystatin 100,000 Unit/gm Powd [Mycostatin Powder] 1 applic TOPICAL TID 07/01/21 [Rx] polyethylene glycoL 3350 [Miralax] 17 gm PO DAILY packet 07/01/21 [Rx] Follow up Appointment(s)/Referral(s): Sunny Reilly MD [STAFF PHYSICIAN] - 1 Week Ambulatory/Diagnostic Orders: Basic Metabolic Panel [LAB.AMB] Location: None Selected
--- NOTE | 2021-07-01 10:21 | P.PN ---
<KariMaya - Last Filed: 07/01/21 11:46> Subjective Progress Note Date: 07/01/21 CHIEF COMPLAINT: Fecal impaction HISTORY OF PRESENT ILLNESS: Patient is status post flexible sigmoidoscopy with manual disimpaction. Patient had a bottle of mag citrate yesterday. She did have another bowel movement per nursing staff. Denies any nausea or vomiting. Reports that her abdominal pain is getting better. She did not eat her breakfast tray. Afebrile. WBC has normalized from 11.5 down to 8.1 hemoglobin 10.8 creatinine up at 1.27. There are plans for possible discharge later today PHYSICAL EXAM: VITAL SIGNS: Reviewed. GENERAL: Well-developed in no acute distress. HEENT: No sclera icterus. Extraocular movements grossly intact. Moist buccal mucosa. Head is atraumatic, normocephalic. ABDOMEN: Soft. Nondistended. Nontender. NEUROLOGIC: Confused ASSESSMENT: 1. Fecal impaction status post flexible sigmoidoscopy with manual this impaction 2. Proctitis 3. Constipation 4. Candidiasis of abdominal skin fold PLAN: -Continue regular diet -Continue good bowel regimen. Agree with MiraLAX -Continue the nystatin powder to abdominal skin fold Physician Litigation Legal Assistant note has been reviewed by physician. Signing provider agrees with the documented findings, assessment, and plan of care. Objective - Vital Signs Vital signs: Vital Signs Temp 98.7 F 07/01/21 07:52 Pulse 80 07/01/21 08:36 Resp 16 07/01/21 07:52 BP 118/71 07/01/21 07:52 Pulse Ox 93 L 07/01/21 07:52 Intake & Output 06/30/21 07/01/21 07/01/21 18:59 06:59 18:59 Intake Total 50 Balance 50 Weight 66.224 kg Intake: IV 50 Other: Voiding Method Diaper Diaper Incontinent Incontinent # Voids 2 1 # Bowel Movements 2 1 - Labs CBC & Chem 7: 07/01/21 04:25 07/01/21 04:24 Labs: Abnormal Lab Results - Last 24 Hours (Table) 07/01/21 07/01/21 Range/Units 04:24 04:25 RBC 3.66 L (3.80-5.40) m/uL Hgb 10.8 L (11.4-16.0) gm/dL Hct 33.2 L (34.0-46.0) % RDW 16.7 H (11.5-15.5) % Plt Count 133 L (150-450) k/uL Lymphocytes # 0.8 L (1.0-4.8) k/uL Chloride 108 H (98-107) mmol/L Carbon Dioxide 20 L (22-30) mmol/L BUN 21 H (7-17) mg/dL Creatinine 1.27 H (0.52-1.04) mg/dL Calcium 8.3 L (8.4-10.2) mg/dL <Moreno Prakash - Last Filed: 07/01/21 16:48> Subjective As above. Patient denies abdominal pain. She was able to have a bowel movement. Impaction resolved. Possible discharge or ECF per primary service. Objective - Vital Signs Vital signs: Vital Signs Temp 98.2 F 07/01/21 14:23 Pulse 78 07/01/21 14:23 Resp 18 07/01/21 14:23 BP 137/75 07/01/21 14:23 Pulse Ox 95 07/01/21 14:23 Intake & Output 06/30/21 07/01/21 07/01/21 18:59 06:59 18:59 Intake Total 50 Balance 50 Weight 66.224 kg Intake: IV 50 Other: Voiding Method Diaper Diaper Diaper Incontinent Incontinent Incontinent # Voids 2 1 1 # Bowel Movements 2 1 2 - Labs CBC & Chem 7: 07/01/21 04:25 07/01/21 04:24 Labs: Abnormal Lab Results - Last 24 Hours (Table) 07/01/21 07/01/21 Range/Units 04:24 04:25 RBC 3.66 L (3.80-5.40) m/uL Hgb 10.8 L (11.4-16.0) gm/dL Hct 33.2 L (34.0-46.0) % RDW 16.7 H (11.5-15.5) % Plt Count 133 L (150-450) k/uL Lymphocytes # 0.8 L (1.0-4.8) k/uL Chloride 108 H (98-107) mmol/L Carbon Dioxide 20 L (22-30) mmol/L BUN 21 H (7-17) mg/dL Creatinine 1.27 H (0.52-1.04) mg/dL Calcium 8.3 L (8.4-10.2) mg/dL
[2021-07-01] MEDS: allopurinoL 100 MG TAB PO SCH (10:35)
[2021-07-01] MEDS: atenoloL 25 MG TAB PO SCH (10:35)
[2021-07-01] MEDS: ENOXAPARIN 40 MG/0.4 ML SYRINGE SQ SCH (10:35)
[2021-07-01] MEDS: FAMOTIDINE 20 MG TAB PO SCH (10:35)
[2021-07-01] MEDS: PANTOPRAZOLE 40 MG/10 ML VIAL IVP SCH (10:36)
[2021-07-01] MEDS: NYSTATIN 100,000 UNIT/GM POWD 15 GM TOPICAL SCH ×2 (10:36→16:18)
[2021-07-01 15:36] VITALS: BP 137/75; PULSE 78; RESP 18; TEMP 98.2
[2021-07-02] MEDS ORDERED: ENOXAPARIN 30 MG/0.3 ML SYRINGE SQ SCH (09:00)
== END 2021-07-01 17:25 | disposition home or self-care (01) | DRG 389 ==
LOC: EC 14:50 → 6NMEDSUR 22:21 → 1SOBS 06-29 10:03 → OBSVTOIN 06-30 07:39
PROVIDERS: ADMIT Family Medicine; ATTEND Family Medicine
PROC: 0DCN8ZZ Extirpation of Matter from Sigmoid Colon, Via Natural or Artificial Opening Endoscopic (ICD-10-PCS; principal; 2021-06-30 12:30)
DX: K56.41 Fecal impaction (principal); L03.90 Cellulitis, unspecified; Z16.24 Resistance to multiple antibiotics; B37.9 Candidiasis, unspecified; Z20.822 Contact with and (suspected) exposure to COVID-19; I10 Essential (primary) hypertension; I25.10 Atherosclerotic heart disease of native coronary artery without angina pectoris; J44.9 Chronic obstructive pulmonary disease, unspecified; K21.9 Gastro-esophageal reflux disease without esophagitis; K52.9 Noninfective gastroenteritis and colitis, unspecified; L89.152 Pressure ulcer of sacral region, stage 2; L89.312 Pressure ulcer of right buttock, stage 2; L89.322 Pressure ulcer of left buttock, stage 2; M79.7 Fibromyalgia; N28.9 Disorder of kidney and ureter, unspecified; Z79.899 Other long term (current) drug therapy; Z87.891 Personal history of nicotine dependence; Z90.710 Acquired absence of both cervix and uterus; Z96.653 Presence of artificial knee joint, bilateral; Z99.3 Dependence on wheelchair; F32.A Depression, unspecified; F41.9 Anxiety disorder, unspecified; G47.33 Obstructive sleep apnea (adult) (pediatric); G89.29 Other chronic pain; M19.90 Unspecified osteoarthritis, unspecified site
CPT/HCPCS: 36415; 45330; 74018; 74177; 80048; 80053; 81003; 82150; 83605; 83690; 84145; 85025; 85610; 85730; 87635; 93005; 94640; 96361; 96374; 99285

== ENCOUNTER → 2021-06-28 | Outpatient (CLI) | payer MEDICARE, OTHER ==
--- NOTE | 2021-06-28 14:47 | P.BASOAP ---
Subjective Progress Note Date: 06/28/21 Principal diagnosis: Abdominal pain, change in bowel habits 75-year-old female here in the bariatric center complaining of vague abdominal pain. Says she feels like she needs to have a bowel movement. Describes incomplete evacuation symptoms. She is not sure when her last colonoscopy was. Patient seems somewhat confused today. Was in the ER recently after a fall. Apparently a rectal exam was negative for impaction. Abdominal plain films relatively nonspecific although some paucity of gas in the rectal vault. Patient denies any nausea or vomiting. No reflux. Objective - Exam Abdomen: Soft, mild distention, mild diffuse tenderness Assessment/Plan (1) Constipation Narrative/Plan: 75-year-old female with constipation symptoms. Recommend ER evaluation for possible repeat disimpaction and additional imaging. Patient may require colonoscopy in the short-term. Patient believes her lap band is emptied previously. No intervention on the lap band performed at this time. Plan: Date: Initial Weight: Initial BMI: Current Weight: Current BMI: Type of Surgery: Total Volume in Band: Previous Volume: Volume Removed: Volume Added: Band Size:
[2021-06-28 15:17] VITALS: BP 158/96; PULSE 96; TEMP 98.1; BMI 29.5
== END ==
LOC: BARWHC3 14:12
PROVIDERS: ATTEND Surgery
DX: K59.00 Constipation, unspecified (principal); Z88.2 Allergy status to sulfonamides; Z88.5 Allergy status to narcotic agent; Z87.891 Personal history of nicotine dependence
CPT/HCPCS: 99211

== ENCOUNTER 2021-07-02 15:41 | Inpatient (IN) | payer MEDICARE, OTHER ==
[2021-07-02] MEDS ORDERED: SODIUM CHLORIDE 0.9% 1,000 ML IV STA (16:35)
[2021-07-02] MEDS ORDERED: NALOXONE 0.4 MG/ML 1 ML VIAL IV PRN (18:21)
--- NOTE | 2021-07-02 18:22 | XR ---
EXAMINATION TYPE: XR chest 2V DATE OF EXAM: 07/02/2021 COMPARISON: 10/20/2019 HISTORY: Weakness TECHNIQUE: 2 views FINDINGS: Heart and mediastinum are within normal limits. Lungs are clear. Diaphragm is normal. There are no hilar masses. The bony thorax is intact. There are chest leads. IMPRESSION: No active cardiopulmonary disease. Normal heart. No change.
--- NOTE | 2021-07-02 18:28 | ED ---
Weakness HPI - General Chief complaint: Weakness Stated complaint: weakness Time Seen by Provider: 07/02/21 16:25 Source: patient, EMS, RN notes reviewed Mode of arrival: EMS - History of Present Illness Initial comments: Patient is a 75-year-old female that presents to the emergency department complaining of weakness. She was recently discharged from the hospital 2 days ago for the same complaint. Patient notes that she lives by herself and is unable to care for herself at this time. She notes that she would like help finding assisted living/nursing facility. Patient was otherwise well-appearing in no apparent distress while lying in bed. She denied chest pain shortness of breath headache nausea vomiting diarrhea constipation fever fatigue chills. - Related Data Home Medications Medication Instructions Recorded Confirmed Omeprazole 20 mg PO DAILY 08/13/17 07/02/21 Allopurinol [Zyloprim] 100 mg PO DAILY 06/14/21 07/02/21 Fluticasone/Vilanterol [Breo 1 puff INHALATION RT-BID 06/14/21 07/02/21 Ellipta 100-25 Mcg Inhaler] HYDROcodone/APAP 5-325MG [[place] 1 tab PO Q8H PRN 06/14/21 07/02/21 5-325] Sucralfate [Carafate] 1 gm PO DAILY 06/14/21 07/02/21 atenoloL [Tenormin] 25 mg PO DAILY 06/14/21 07/02/21 Ondansetron Odt [Zofran ODT] 8 mg PO Q8HR PRN 06/28/21 07/02/21 Tiotropium 2.5 Mcg/Puff [Spiriva 1 puff INHALATION RT-DAILY 06/28/21 07/02/21 Respimat 2.5 Mcg] Previous Rx's Medication Instructions Recorded Nystatin 100,000 Unit/gm Powd 1 applic TOPICAL TID 07/01/21 [Mycostatin Powder] polyethylene glycoL 3350 [Miralax] 17 gm PO DAILY packet 07/01/21 Allergies Allergy/AdvReac Type Severity Reaction Status Date / Time Sulfa (Sulfonamide Allergy Rash/Hives Verified 07/02/21 17:42 Antibiotics) morphine AdvReac Nausea & Verified 07/02/21 17:42 Vomiting Review of Systems ROS Statement: Those systems with pertinent positive or pertinent negative responses have been documented in the HPI. ROS Other: All systems not noted in ROS Statement are negative. Past Medical History Past Medical History: Coronary Artery Disease (CAD), COPD, Fibromyalgia, Hypertension, Musculoskeletal Disorder, Sleep Apnea/CPAP/BIPAP Additional Past Medical History / Comment(s): chronic back pain, severe osteoarthritis and the patient has difficult mobility and the patient gets around with the help of a power chair, previous history of obstructive sleep apnea, hypertension, fibromyalgia, osteoarthritis, fibrocystic disease of the breast History of Any Multi-Drug Resistant Organisms: MRSA Date of last positivie culture/infection: 08/13/17 MDRO Source:: LEG Past Surgical History: Appendectomy, Breast Surgery, Cholecystectomy, Hysterectomy, Orthopedic Surgery Additional Past Surgical History / Comment(s): Bilateral knee replacements Past Psychological History: Anxiety, Depression Smoking Status: Former smoker - Past Family History Mother Family Medical History: No Reported History Father Family Medical History: No Reported History General Exam General appearance: alert, in no apparent distress Head exam: Present: atraumatic, normocephalic, normal inspection Eye exam: Present: normal appearance, PERRL, EOMI. Absent: scleral icterus, conjunctival injection, periorbital swelling ENT exam: Present: normal exam, mucous membranes moist Neck exam: Present: normal inspection Respiratory exam: Present: normal lung sounds bilaterally. Absent: respiratory distress, wheezes, rales, rhonchi, stridor Cardiovascular Exam: Present: regular rate, normal rhythm, normal heart sounds. Absent: systolic murmur, diastolic murmur, rubs, gallop, clicks Extremities exam: Present: normal inspection, full ROM, normal capillary refill. Absent: tenderness, pedal edema, joint swelling, calf tenderness Neurological exam: Present: alert, oriented X3 Psychiatric exam: Present: normal affect, normal mood Skin exam: Present: warm, dry, intact, normal color. Absent: rash Course Vital Signs 07/02/21 15:47 Temperature 98.2 F Pulse Rate 92 Respiratory 18 Rate Blood Pressure 157/67 O2 Sat by Pulse 97 Oximetry EKG Findings - EKG Comments: EKG Findings:: Ventricular rate 85 bpm, NH interval 152 ms, QRS duration 74 ms, QTC 409 ms, PRT axes 77/55/68. Normal sinus rhythm with possible left atrial enlargement, cannot rule out anterior infarct age undetermined, abnormal ECG. Medical Decision Making - Medical Decision Making 75-year-old female complaining of weakness, recent discharge from hospital. Patient is seeking placement in detention or assisted living facility at this time due to living alone and unable to care for herself. Labs, EKG, chest x-ray, pinball machine repairer ordered. EKG similar to previous. Case discussed with Dr. Ansari, patient will be admitted. [facility] hospitalist was consulted and will accept the admit. Disposition Clinical Impression: Failure to thrive, Weakness, Constipation Disposition: ADMITTED IP TO THIS [facility] Condition: Stable Is patient prescribed a controlled substance at d/c from ED?: No Referrals: Tati Prakash MD [Primary Care Provider] - 1-2 days Time of Disposition: 18:27
[2021-07-02 19:07] LABS: Albumin 2.9 g/dL (3.5-5.0); Calcium 8.5 mg/dL (8.4-10.2); Magnesium 1.8 mg/dL (1.6-2.3); Total Protein 6.2 g/dL (6.3-8.2)
[2021-07-02 19:14] LABS: Anisocytosis Slight; Basophils % (A) 0 %; Eosinophils # (A) 0.2 k/uL (0-0.7); Eosinophils % (A) 2 %; HCT 39.5 % (34.0-46.0); HGB 12.8 gm/dL (11.4-16.0); Lymphocytes % (A) 9 %; MCHC 32.3 g/dL (31.0-37.0); MCV 89.7 fL (80.0-100.0); Monocytes # (A) 0.4 k/uL (0-1.0); Monocytes % (A) 3 %; Neutrophils # (A) 9.9 k/uL (1.3-7.7); Neutrophils % (A) 86 %; Platelet Count 141 k/uL (150-450); RBC 4.41 m/uL (3.80-5.40); RDW 16.6 % (11.5-15.5); WBC 11.5 k/uL (3.8-10.6)
[2021-07-02] MEDS: SODIUM CHLORIDE 0.9% 1,000 ML IV SCH (19:15)
[2021-07-02 19:18] LABS: Potassium 4.6 mmol/L (3.5-5.1)
[2021-07-02 19:29] LABS: INR 1.1 (<1.2); Partial Thromboplastin Time 24.3 sec (22.0-30.0); Prothrombin Time 11.3 sec (9.0-12.0)
[2021-07-03] MEDS: SODIUM CHLORIDE 0.9% 1,000 ML IV SCH ×2 (05:38→12:17)
[2021-07-03 05:42] LABS: Appearance,Urine Turbid (Clear); Bacteria,Urine Occasional /hpf; Bilirubin,Urine Negative (Negative); Blood,Urine Moderate (Negative); Color,Urine Yellow; Glucose,Urine (UA) Negative (Negative); Ketones,Urine 1+ (Negative); Leukocyte Esterase,Urine Large (Negative); Nitrite,Urine Negative (Negative); Protein,Urine 2+ (Negative); RBC,Urine 55 /hpf (0-5); Specific Gravity,Urine 1.018 (1.001-1.035); Squamous Epithelial Cell,Urine 1 /hpf (0-4); WBC,Urine >182 /hpf (0-5)
[2021-07-03] MEDS: IPRATROPIUM 0.5 MG/2.5 ML NEBU INHALATION SCH ×4 (07:35→20:33)
[2021-07-03] MEDS: SYMBICORT 80-4.5 MCG INHALER INHALATION SCH ×2 (07:35→20:33)
[2021-07-03] MEDS: PANTOPRAZOLE 40 MG TABLET PO SCH (07:36)
[2021-07-03] MEDS: SUCRALFATE 1 GM TAB PO SCH (07:36)
[2021-07-03] MEDS: allopurinoL 100 MG TAB PO SCH (07:36)
[2021-07-03] MEDS: HEPARIN SODIUM,PORCINE/PF 5,000 UNIT/0.5 ML SYRINGE SQ SCH ×2 (07:36→19:58)
[2021-07-03] MEDS: polyethylene glycoL 3350 17 GM POWD.PACK PO SCH (07:36)
[2021-07-03] MEDS: atenoloL 25 MG TAB PO SCH (07:36)
[2021-07-03] MEDS: HYDROcodone/APAP 5-325MG 1 EACH TAB PO PRN ×3 (07:40→19:59)
[2021-07-03 10:21] LABS: Basophils # (A) 0.02 X 10*3/uL (0.00-0.10); Basophils % (A) 0.2 %; Eosinophils # (A) 0.22 X 10*3/uL (0.04-0.35); Eosinophils % (A) 2.4 %; HCT 32.1 % (37.2-46.3); HGB 9.5 g/dL (12.0-15.0); Lymphocytes # (A) 1.35 X 10*3/uL (0.90-5.00); Lymphocytes % (A) 14.5 %; MCH 27.5 pg (27.0-32.0); MCHC 29.6 g/dL (32.0-37.0); MCV 92.8 fL (80.0-97.0); Mean Platelet Volume 10.6 fL (9.5-12.2); Monocytes # (A) 0.59 X 10*3/uL (0.20-1.00); Monocytes % (A) 6.4 %; Neutrophils # (A) 7.04 X 10*3/uL (1.80-7.70); Neutrophils % (A) 75.9 %; Platelet Count 133 X 10*3/uL (140-440); RBC 3.46 X 10*6/uL (4.10-5.20); RDW 17.2 % (11.5-14.5); WBC 9.28 X 10*3/uL (4.50-10.00)
[2021-07-03] MEDS ORDERED: IOPAMIDOL CONTRAST (ORAL USE) VIAL PO PRN (11:15)
[2021-07-03 11:21] LABS: African American GFR (CKD) 71.1 (60.0-200.0); BUN/Creat Ratio 19.03 Ratio (12.00-20.00); Blood Urea Nitrogen 17.2 mg/dL (9.0-27.0); Chloride 111 mmol/L (96-109); Glucose 79 mg/dL (70-110); Magnesium 1.8 mg/dL (1.5-2.4); Non-African American GFR(CKD) 61.3 (60.0-200.0); Potassium 4.5 mmol/L (3.5-5.5); Sodium 140 mmol/L (135-145)
--- NOTE | 2021-07-03 13:18 | CT ---
EXAMINATION TYPE: CT abdomen pelvis wo con CT DLP: 531.8 mGycm, Automated exposure control for dose reduction was used. DATE OF EXAM: 07/03/2021 1:00 PM COMPARISON: CT abdomen pelvis 06/28/2021. CLINICAL INDICATION:Female, 75 years old with history of generalized abd tenderness, possible prostat itis ; , Weakness, possible prostatitis, generalized abdominal pain TECHNIQUE: Standard CT of the abdomen and pelvis without IV or oral contrast. Lack of IV or oral co ntrast limits evaluation of solid and hollow organ viscera. Coronal and sagittal reformats were perfo rmed. FINDINGS: LOWER CHEST: Unremarkable ABDOMEN LIVER: Unremarkable GALLBLADDER AND BILE DUCTS: The gallbladder is surgically absent. PANCREAS: Unremarkable. SPLEEN: Unremarkable. ADRENAL GLANDS: Unremarkable. KIDNEYS AND URETERS: No evidence of hydronephrosis or renal calculus. The ureters are unremarkable. PELVIS BLADDER: Unremarkable REPRODUCTIVE: The uterus is surgically absent. ABDOMEN & PELVIS STOMACH AND BOWEL: Circumferential rectal wall thickening measuring up to 1.2 cm. Colonic diverticulo sis is present. Gastric lap band and reservoir are present and appear intact. No evidence of bowel ob struction. PERITONEUM: No evidence of pneumoperitoneum or free fluid. VASCULATURE: No evidence of aortic aneurysm. MUSCULOSKELETAL: Moderate disc degeneration changes are present throughout the thoracolumbar spine. LYMPH NODES: No gross evidence for lymphadenopathy. SOFT TISSUE/ABDOMINAL WALL: Subcutaneous gas within the anterior abdominal wall soft tissues likely s econdary to medicine injections IMPRESSION: 1. Circumferential rectal wall thickening consistent with proctitis. 2. Colonic diverticulosis 3. Gastric Lap band changes similar to prior
--- NOTE | 2021-07-03 14:08 | P.HPIM ---
History of Present Illness This is a pleasant 75 years old female with past medical history of Coronary Artery Disease, COPD, Fibromyalgia, Hypertension, Sleep Apnea/CPAP/BIPAP, chronic back pain, severe osteoarthritis and the patient has difficult mobility and the patient gets around with the help of a power chair, previous history of obstructive sleep apnea, fibrocystic disease of the breast She was recently discharged from the hospital 3 days ago 06/30, she was admitted to the hospital with abdominal pain and constipation found to have fecal impaction; She underwent flexible sigmoidoscopy with manual inflation for her proctatitis and fecal dysimpaction. Patient states that when she left the hospital she was very weak, she has pain in her bouts and treated as 6/10 for a few days since last admission, however she could not specify when exactly started this pain. Patient states that she did not have bowel movement since last admission after she had fecal disimpaction. No nausea vomiting. Also she has abdominal pain a nd tenderness it looks generalized and lower abdominal. Also patient states that she cannot walk for more than a year, she moves out using a walker old and electric wheelchair. Patient also has stage I sacral pressure ulcer She fell several times and now she is complaining from pain in her right hip area. Patient states that also she has poor appetite and this is a that she eats well she has not been eating well for the last 2 months Patient vitals are stable and she is afebrile Labs reviewed and shows mild leukocytosis of 11.5, platelets slightly low at 141, rest of labs including BMP and LFTs are unremarkable. Vasquez varus not detected Chest x-ray negative for acute process Patient was started on normal saline 100 mL per hour and admitted to the hospital for placement to rehab with PT/OT evaluation We ordered CT of the abdomen and pelvis without contrast: Circumferential rectal wall thickening consistent with prostatitis. Colonic diverticulosis. Gastric lap band changes similar to prior Review of Systems Review of systems CONSTITUTIONAL: No fever, no malaise, no fatigue. HEENT: No recent visual problems or hearing problems. Denied any sore throat. CARDIOVASCULAR: No orthopnea, PND, no palpitations, no syncope. PULMONARY: No shortness of breath, no cough, no hemoptysis. GASTROINTESTINAL: No diarrhea, no nausea, no vomiting, Normoactive bowel sounds. NEUROLOGICAL: No headaches, no weakness, no numbness. HEMATOLOGICAL: Denies any bleeding or petechiae. GENITOURINARY: Denies any burning micturition, frequency, or urgency. MUSCULOSKELETAL/RHEUMATOLOGICAL: Denies any joint pain, swelling, or any muscle pain. ENDOCRINE: Denies any polyuria or polydipsia. Past Medical History Past Medical History: Coronary Artery Disease (CAD), COPD, Fibromyalgia, Hypertension, Musculoskeletal Disorder, Sleep Apnea/CPAP/BIPAP Additional Past Medical History / Comment(s): chronic back pain, severe osteoarthritis and the patient has difficult mobility and the patient gets around with the help of a power chair, previous history of obstructive sleep apnea, hypertension, fibromyalgia, osteoarthritis, fibrocystic disease of the breast, constipation, multiple falls History of Any Multi-Drug Resistant Organisms: MRSA Date of last positivie culture/infection: 08/13/17 MDRO Source:: LEG Past Surgical History: Appendectomy, Breast Surgery, Cholecystectomy, Hysterectomy, Orthopedic Surgery Additional Past Surgical History / Comment(s): Bilateral knee replacements, fecal disimpaction Past Anesthesia/Blood Transfusion Reactions: No Reported Reaction Past Psychological History: Anxiety, Depression Smoking Status: Former smoker Past Alcohol Use History: None Reported Past Drug Use History: None Reported - Past Family History Mother Family Medical History: No Reported History Father Family Medical History: No Reported History Medications and Allergies Home Medications Medication Instructions Recorded Confirmed Type Omeprazole 20 mg PO DAILY 08/13/17 07/02/21 History Allopurinol [Zyloprim] 100 mg PO DAILY 06/14/21 07/02/21 History Fluticasone/Vilanterol [Breo 1 puff INHALATION RT-BID 06/14/21 07/02/21 History Ellipta 100-25 Mcg Inhaler] HYDROcodone/APAP 5-325MG [[place] 1 tab PO Q8H PRN 06/14/21 07/02/21 History 5-325] Sucralfate [Carafate] 1 gm PO DAILY 06/14/21 07/02/21 History atenoloL [Tenormin] 25 mg PO DAILY 06/14/21 07/02/21 History Ondansetron Odt [Zofran ODT] 8 mg PO Q8HR PRN 06/28/21 07/02/21 History Tiotropium 2.5 Mcg/Puff [Spiriva 1 puff INHALATION RT-DAILY 06/28/21 07/02/21 History Respimat 2.5 Mcg] Nystatin 100,000 Unit/gm Powd 1 applic TOPICAL TID 07/01/21 07/02/21 Rx [Mycostatin Powder] polyethylene glycoL 3350 [Miralax] 17 gm PO DAILY packet 07/01/21 07/02/21 Rx Allergies Allergy/AdvReac Type Severity Reaction Status Date / Time Sulfa (Sulfonamide Allergy Rash/Hives Verified 07/02/21 17:42 Antibiotics) morphine AdvReac Nausea & Verified 07/02/21 17:42 Vomiting Physical Exam Vitals: Vital Signs Temp Pulse Pulse Resp BP BP Pulse Ox 07/03/21 07:44 62 07/03/21 07:40 99.0 F 99 16 158/81 99 07/03/21 07:38 62 07/03/21 02:35 16 07/03/21 02:00 98.6 F 83 17 162/74 100 07/02/21 21:17 98.8 F 62 16 150/72 96 07/02/21 15:47 98.2 F 92 18 157/67 97 Intake and Output 07/02/21 07/03/21 07/03/21 22:59 06:59 14:59 Output Total 100 Balance -100 Output: Urine 100 Other: Voiding Method External Catheter # Voids 1 Weight 63.503 kg 63.503 kg Exam done in the process and help of the nurse Mitali DIEZ: The patient is alert and oriented x3, not in any acute distress. Well developed, well nourished. HEENT: Pupils are round and equally reacting to light. EOMI. No scleral icterus. No conjunctival pallor. Normocephalic, atraumatic. No pharyngeal erythema. No thyromegaly. CARDIOVASCULAR: S1 and S2 present. No murmurs, rubs, or gallops. PULMONARY: Chest is clear to auscultation, no wheezing or crackles. -ABDOMEN: Soft, generalized abdominal tenderness, more in the lower abdomen, no rebound tenderness or guarding, nondistended, normoactive bowel sounds. No palpable organomegaly. Rectal exam done after patient gave verbal consent and it was very painful for the patient MUSCULOSKELETAL: No joint swelling or deformity. EXTREMITIES: No cyanosis, clubbing, or pedal edema. NEUROLOGICAL: Gross neurological examination did not reveal any focal deficits. SKIN: No rashes. no petechiae. Results CBC & Chem 7: 12/12/21 05:23 07/03/21 05:23 Labs: Abnormal Lab Results - Last 24 Hours (Table) 07/02/21 07/02/21 07/03/21 Range/Units 18:34 18:56 05:25 WBC 11.5 H (3.8-10.6) k/uL RDW 16.6 H (11.5-15.5) % Plt Count 141 L (150-450) k/uL Neutrophils # 9.9 H (1.3-7.7) k/uL Carbon Dioxide 19 L (22-30) mmol/L BUN 21 H (7-17) mg/dL AST 40 H (14-36) U/L Total Protein 6.2 L (6.3-8.2) g/dL Albumin 2.9 L (3.5-5.0) g/dL Urine Appearance Turbid H (Clear) Urine Protein 2+ H (Negative) Urine Ketones 1+ H (Negative) Urine Blood Moderate H (Negative) Ur Leukocyte Esterase Large H (Negative) Urine RBC 55 H (0-5) /hpf Urine WBC >182 H (0-5) /hpf Urine WBC Clumps Many H (None) /hpf Urine Bacteria Occasional H (None) /hpf Thrombosis Risk Factor Assmnt - Choose All That Apply Each Factor Represents 1 point: Abnormal pulmonary function (COPD), Obesity (BMI >25) Each Risk Factor Represents 3 Points: Age 75 years or older Thrombosis Risk Factor Assessment Total Risk Factor Score: 5 Thrombosis Risk Factor Assessment Level: High Risk Assessment and Plan Assessment: acute proctatitis possible urinary tract infection Spinal stenosis at L4-L5 with ongoing difficulty in mobility Multiple falls without syncope Right hip pain secondary to fall, rule out fracture Generalized weakness History of coronary artery disease Hypertension History of fibromyalgia COPD, no acute exacerbation Sleep apnea Chronic back pain History of severe osteoarthritis and difficulty in mobility Plan: This is a pleasant 75 result female who presents with generalized weakness. Start ceftriaxone and Rocephin. ID team consult Check bladder scan check hip x-ray. Consult orthopedic team Check TSH send one culture from the pressure ulcer possible Labs and medication were reviewed.. Continue same treatment. Continue with symptomatic treatment. Resume home medication. Monitor lytes and vitals. DVT and GI prophylaxis. Further recommendations depends on the clinical course of the patient DVT prophylaxis: Subcutaneous heparin GI Prophylaxis: Ppi PT/OT: Pending Prognosis is guarded
--- NOTE | 2021-07-03 14:43 | XR ---
EXAMINATION TYPE: XR Hip RT and AP Pelvis DATE OF EXAM: 07/03/2021 COMPARISON: NONE HISTORY: Pain TECHNIQUE: 3 views FINDINGS: There is mild spurring of the acetabula. Pelvic ring is intact. Sacroiliac joints are intac t. IMPRESSION: No acute abnormality of the pelvis and right hip. No fracture.
[2021-07-03] MEDS: metroNIDAZOLE-NS PMX 500 MG in SALINE 1 100ML.BAG IVPB SCH (16:30)
[2021-07-03] MEDS ORDERED: HEPARIN SODIUM,PORCINE/PF 5,000 UNIT/0.5 ML SYRINGE SQ SCH (21:00)
[2021-07-04] MEDS: metroNIDAZOLE-NS PMX 500 MG in SALINE 1 100ML.BAG IVPB SCH ×3 (00:01→16:10)
[2021-07-04] MEDS: SODIUM CHLORIDE 0.9% 1,000 ML IV SCH ×3 (06:24→18:30)
[2021-07-04] MEDS: IPRATROPIUM 0.5 MG/2.5 ML NEBU INHALATION SCH ×4 (07:26→19:08)
[2021-07-04] MEDS: SYMBICORT 80-4.5 MCG INHALER INHALATION SCH ×2 (07:26→19:08)
[2021-07-04] MEDS: polyethylene glycoL 3350 17 GM POWD.PACK PO SCH (08:14)
[2021-07-04] MEDS: SUCRALFATE 1 GM TAB PO SCH (08:14)
[2021-07-04] MEDS: atenoloL 25 MG TAB PO SCH (08:14)
[2021-07-04] MEDS: PANTOPRAZOLE 40 MG TABLET PO SCH (08:14)
[2021-07-04] MEDS: HEPARIN SODIUM,PORCINE/PF 5,000 UNIT/0.5 ML SYRINGE SQ SCH ×2 (08:14→20:56)
[2021-07-04] MEDS: allopurinoL 100 MG TAB PO SCH (08:14)
--- NOTE | 2021-07-04 08:45 | P.CONS ---
History of Present Illness - Reason for Consult Consult date: 07/03/21 proctitis and UTI Requesting physician: Tony E Sheet - Chief Complaint weakness x few days - History of Present Illness History of present illness : Patient is 75-year-old female who was brought into the ER last evening for evaluation of weakness in this patient who was recently discharged from nursing facility patient mention she lives by herself and is unable to care for self patient on presentation to the hospital was afebrile and no fever has been recorded subsequently not hypoxic did have mild elevated white count of 11.5 with a left shift creatinine was normal AST was mildly elevated patient did have a positive UA wilcox PCR was negative patient did have a CT of abdominal pelvis which showed circumferential rectal wall thickening consistent with proctitis colonic diverticulosis infectious disease was consulted because of these abnormal findings and need for antibiotic therapy patient overall is not a very good historian most information has been obtained by asking leading question when asked specifically complaining of weakness patient denies any abdominal pain however the patient did have diarrhea with one loose stool reported by the nursing staff no blood or mucus in the stool no nausea no vomiting no chest pain shortness of breath or cough she is very vague about her urinary symptoms Review of system: CONSTITUTIONAL: Positive for weakness denies fever. EYES: No complaint. ENT: No complaint. RESPIRATORY: No complaint. CARDIOVASCULAR: No complaint. GENITOURINARY: As per history of present illness. GASTROINTESTINAL: As per history of present illness. MUSCULOSKELETAL: No complaint. INTEGUMENTARY: No complaint. PSYCHOLOGIC: No complaint. ENDOCRINE: No complaint. NEUROLOGIC: No complaint. Past medical history : Reviewed, documented below Past surgical history : Reviewed, documented below Social history: Reviewed, documented below Medications: Reviewed, as documented below EXAMINATION: Vital sigans= Reviewed and documented below GENERAL DESCRIPTION: Elderly female lying in bed, no distress. No tachypnea or accessory muscle of respiration use. HEENT: Shows Pallor , no scleral icterus. Oral mucous membrane is dry. NECK: Trachea central, no thyromegaly. LUNGS: Unlabored breathing. Clear to auscultation anteriorly. No wheeze or crackle. HEART: S1, S2, regular rate and rhythm. ABDOMEN: Soft, no tenderness , guarding or rigidity EXTREMITIES: No edema of feet. SKIN: No rash, no masses palpable. NEUROLOGICAL: The patient is awake, alert, oriented x2, mood and affect normal. LABS AND RADIOLOGY: Reviewed results see below Assessment : Patient is a 75-year female presented to the hospital with weakness unable to take care of herself in this patient did have mild elevated white count on admission did have a positive UA however very vague about her urinary symptoms patient did have diarrhea with abnormality seen on the CT suspicious for proctitis will need to cover for the enteric gram-negative both aerobes and anaerobes Plan: 1-patient to continue with Rocephin and Flagyl 2-gentle IV fluid 3-check a stool for C. difficile and culture We will follow on clinical condition and cultures to further adjust medication if needed Thank you for this consultation we will follow the patient along with you Past Medical History Past Medical History: Coronary Artery Disease (CAD), COPD, Fibromyalgia, Hypertension, Musculoskeletal Disorder, Sleep Apnea/CPAP/BIPAP Additional Past Medical History / Comment(s): chronic back pain, severe osteoarthritis and the patient has difficult mobility and the patient gets around with the help of a power chair, previous history of obstructive sleep apnea, hypertension, fibromyalgia, osteoarthritis, fibrocystic disease of the breast, constipation, multiple falls History of Any Multi-Drug Resistant Organisms: MRSA Year Discovered:: 08/13/17 MDRO Source:: LEG Past Surgical History: Appendectomy, Breast Surgery, Cholecystectomy, Hysterectomy, Orthopedic Surgery Additional Past Surgical History / Comment(s): Bilateral knee replacements, fecal disimpaction Past Anesthesia/Blood Transfusion Reactions: No Reported Reaction Past Psychological History: Anxiety, Depression Smoking Status: Former smoker Past Alcohol Use History: None Reported Past Drug Use History: None Reported - Past Family History Mother Family Medical History: No Reported History Father Family Medical History: No Reported History Medications and Allergies Home Medications Medication Instructions Recorded Confirmed Type Omeprazole 20 mg PO DAILY 08/13/17 07/02/21 History Allopurinol [Zyloprim] 100 mg PO DAILY 06/14/21 07/02/21 History Fluticasone/Vilanterol [Breo 1 puff INHALATION RT-BID 06/14/21 07/02/21 History Ellipta 100-25 Mcg Inhaler] HYDROcodone/APAP 5-325MG [[place] 1 tab PO Q8H PRN 06/14/21 07/02/21 History 5-325] Sucralfate [Carafate] 1 gm PO DAILY 06/14/21 07/02/21 History atenoloL [Tenormin] 25 mg PO DAILY 06/14/21 07/02/21 History Ondansetron Odt [Zofran ODT] 8 mg PO Q8HR PRN 06/28/21 07/02/21 History Tiotropium 2.5 Mcg/Puff [Spiriva 1 puff INHALATION RT-DAILY 06/28/21 07/02/21 History Respimat 2.5 Mcg] Nystatin 100,000 Unit/gm Powd 1 applic TOPICAL TID 07/01/21 07/02/21 Rx [Mycostatin Powder] polyethylene glycoL 3350 [Miralax] 17 gm PO DAILY packet 07/01/21 07/02/21 Rx Allergies Allergy/AdvReac Type Severity Reaction Status Date / Time Sulfa (Sulfonamide Allergy Rash/Hives Verified 07/02/21 17:42 Antibiotics) morphine AdvReac Nausea & Verified 07/02/21 17:42 Vomiting Physical Exam Vitals: Vital Signs Temp Pulse Pulse Resp BP BP Pulse Ox 07/03/21 13:53 97.8 F 77 16 146/72 99 07/03/21 11:33 62 07/03/21 11:21 62 07/03/21 07:44 62 07/03/21 07:40 99.0 F 99 16 158/81 99 07/03/21 07:38 62 07/03/21 02:35 16 07/03/21 02:00 98.6 F 83 17 162/74 100 07/02/21 21:17 98.8 F 62 16 150/72 96 07/02/21 15:47 98.2 F 92 18 157/67 97 Intake and Output 07/02/21 07/03/21 07/03/21 22:59 06:59 14:59 Output Total 100 Balance -100 Output: Urine 100 Other: Voiding Method External Catheter External Catheter # Voids 1 Weight 63.503 kg 63.503 kg Results CBC & Chem 7: 07/03/21 05:23 07/03/21 05:23 Labs: Abnormal Lab Results - Last 24 Hours (Table) 07/02/21 07/02/21 07/03/21 Range/Units 18:34 18:56 05:23 WBC 11.5 H (3.8-10.6) k/uL RBC (4.10-5.20) X 10*6/uL Hgb (12.0-15.0) g/dL Hct (37.2-46.3) % MCHC (32.0-37.0) g/dL RDW 16.6 H (11.5-15.5) % Plt Count 141 L (150-450) k/uL Immature Gran # (0.00-0.04) X 10*3/uL Neutrophils # 9.9 H (1.3-7.7) k/uL Chloride 111 H (96-109) mmol/L Carbon Dioxide 19 L 16.0 L (22-30) mmol/L BUN 21 H (7-17) mg/dL Calcium 8.0 L (8.7-10.3) mg/dL AST 40 H (14-36) U/L C-Reactive Protein 11.70 H (0.00-0.80) mg/dL Total Protein 6.2 L (6.3-8.2) g/dL Albumin 2.9 L (3.5-5.0) g/dL Procalcitonin (0.02-0.09) ng/mL Urine Appearance (Clear) Urine Protein (Negative) Urine Ketones (Negative) Urine Blood (Negative) Ur Leukocyte Esterase (Negative) Urine RBC (0-5) /hpf Urine WBC (0-5) /hpf Urine WBC Clumps (None) /hpf Urine Bacteria (None) /hpf 07/03/21 07/03/21 07/03/21 Range/Units 05:23 05:23 05:25 WBC (3.8-10.6) k/uL RBC 3.46 L (4.10-5.20) X 10*6/uL Hgb 9.5 L (12.0-15.0) g/dL Hct 32.1 L (37.2-46.3) % MCHC 29.6 L (32.0-37.0) g/dL RDW 17.2 H (11.5-15.5) % Plt Count 133 L (150-450) k/uL Immature Gran # 0.06 H (0.00-0.04) X 10*3/uL Neutrophils # (1.3-7.7) k/uL Chloride (96-109) mmol/L Carbon Dioxide (22-30) mmol/L BUN (7-17) mg/dL Calcium (8.7-10.3) mg/dL AST (14-36) U/L C-Reactive Protein (0.00-0.80) mg/dL Total Protein (6.3-8.2) g/dL Albumin (3.5-5.0) g/dL Procalcitonin 0.16 H (0.02-0.09) ng/mL Urine Appearance Turbid H (Clear) Urine Protein 2+ H (Negative) Urine Ketones 1+ H (Negative) Urine Blood Moderate H (Negative) Ur Leukocyte Esterase Large H (Negative) Urine RBC 55 H (0-5) /hpf Urine WBC >182 H (0-5) /hpf Urine WBC Clumps Many H (None) /hpf Urine Bacteria Occasional H (None) /hpf Microbiology - Last 24 Hours (Table) 07/03/21 05:25 Urine Culture - Preliminary Urine,Voided
--- NOTE | 2021-07-04 09:20 | P.CNOR ---
History of Present Illness - [facility] Consult date: 07/04/21 Requesting physician: Tony E Sheet Consult reason: low back pain, other (Frequent falls and difficulty with ambula tion) History of present illness: Patient is a very pleasant 75-year-old female who is seen examined at the bedside for further evaluation in regards to her lumbar spine. Patient has a history of multiple falls and states she has not walked well greater than 1 y ear. She spends most of her time sitting in a chair and uses a motorized wheelchair to aid in ambulation. She does feel generalized weakness in her lower extremities. Most significant, patient is currently having significant difficulty with a bowel movement and abdominal pain. Patient was recently discharged from the hospital after multiple day stay when she was treated for abdominal pain, constipation, and fecal impaction. Since her discharge from the hospital she continues to have significant difficulty with having a bowel movement. She admits to abdominal pain and anal pain. She does admit to some chronic low back pain and difficulty with mobility but adamantly states she does not wish to have any surgical intervention in regards to her lumbar spine. She states she has not worked with pain management but would be willing to do so. She is currently being seen by medicine. Her other medical diagnoses include coronary artery disease, COPD, hypertension, and fibromyalgia. Patient was experiencing some pain towards the right hip after her fall and imaging was taken at that time without evidence of hip fracture. She is not currently complaining of any right hip pain. She continues to complain of of abdominal pain at the bedside. She is also being treated for a sacral ulcer. Past Medical History Past Medical History: Coronary Artery Disease (CAD), COPD, Fibromyalgia, Hypertension, Musculoskeletal Disorder, Sleep Apnea/CPAP/BIPAP Additional Past Medical History / Comment(s): chronic back pain, severe osteoarthritis and the patient has difficult mobility and the patient gets around with the help of a power chair, previous history of obstructive sleep apnea, hypertension, fibromyalgia, osteoarthritis, fibrocystic disease of the breast, constipation, multiple falls History of Any Multi-Drug Resistant Organisms: MRSA Year Discovered:: 08/13/17 MDRO Source:: LEG Past Surgical History: Appendectomy, Breast Surgery, Cholecystectomy, Hysterectomy, Orthopedic Surgery Additional Past Surgical History / Comment(s): Bilateral knee replacements, fecal disimpaction Past Anesthesia/Blood Transfusion Reactions: No Reported Reaction Past Psychological History: Anxiety, Depression Smoking Status: Former smoker Past Alcohol Use History: None Reported Past Drug Use History: None Reported - Past Family History Mother Family Medical History: No Reported History Father Family Medical History: No Reported History Medications and Allergies Home Medications Medication Instructions Recorded Confirmed Type Omeprazole 20 mg PO DAILY 08/13/17 07/02/21 History Allopurinol [Zyloprim] 100 mg PO DAILY 06/14/21 07/02/21 History Fluticasone/Vilanterol [Breo 1 puff INHALATION RT-BID 06/14/21 07/02/21 History Ellipta 100-25 Mcg Inhaler] HYDROcodone/APAP 5-325MG [[place] 1 tab PO Q8H PRN 06/14/21 07/02/21 History 5-325] Sucralfate [Carafate] 1 gm PO DAILY 06/14/21 07/02/21 History atenoloL [Tenormin] 25 mg PO DAILY 06/14/21 07/02/21 History Ondansetron Odt [Zofran ODT] 8 mg PO Q8HR PRN 06/28/21 07/02/21 History Tiotropium 2.5 Mcg/Puff [Spiriva 1 puff INHALATION RT-DAILY 06/28/21 07/02/21 History Respimat 2.5 Mcg] Nystatin 100,000 Unit/gm Powd 1 applic TOPICAL TID 07/01/21 07/02/21 Rx [Mycostatin Powder] polyethylene glycoL 3350 [Miralax] 17 gm PO DAILY packet 07/01/21 07/02/21 Rx Allergies Allergy/AdvReac Type Severity Reaction Status Date / Time Sulfa (Sulfonamide Allergy Rash/Hives Verified 07/02/21 17:42 Antibiotics) morphine AdvReac Nausea & Verified 07/02/21 17:42 Vomiting Physical Examination Physical exam: Patient is awake, alert, and oriented 3 Vital signs stable Adequate chest excursion with deep inspiration and expiration Examination of lumbar spine reveals skin is intact with no abrasions, lacerations, or bruises; no erythema, purulence or signs of infection Dorsiflexion, plantarflexion, and extensor hallucis longus positive sustained bilaterally Lower extremity strength 5/5 bilaterally Patient is able to move her legs in bed independently without significant difficulty Straight leg test negative bilateral lower extremities No signs or symptoms of DVT; no calf pain No pain with internal and external rotation of the hips bilaterally Neurovascularly intact Results Pertinent studies: CT of the abdomen and pelvis taken on 07/03/2021: Degenerative disc disease throughout the lumbar spine; L4-5 spondylolisthesis and most likely significant spinal canal stenosis; L5-S1 likely spinal stenosis; proctitis; colonic diverticulosis X-rays of the right hip and pelvis taken on 07/03/2021: No evidence of fracture or dislocation at the right hip or within the pelvis - Labs Labs: Abnormal Lab Results - Last 24 Hours (Table) 07/03/21 07/03/21 07/03/21 Range/Units 05:23 05:23 05:23 RBC 3.46 L (4.10-5.20) X 10*6/uL Hgb 9.5 L (12.0-15.0) g/dL Hct 32.1 L (37.2-46.3) % MCHC 29.6 L (32.0-37.0) g/dL RDW 17.2 H (11.5-14.5) % Plt Count 133 L (140-440) X 10*3/uL Immature Gran # 0.06 H (0.00-0.04) X 10*3/uL Chloride 111 H (96-109) mmol/L Carbon Dioxide 16.0 L (20.0-27.5) mmol/L Calcium 8.0 L (8.7-10.3) mg/dL C-Reactive Protein 11.70 H (0.00-0.80) mg/dL Procalcitonin 0.16 H (0.02-0.09) ng/mL Microbiology - Last 24 Hours (Table) 07/03/21 11:38 Gram Stain - Preliminary Buttock Wound Culture - Preliminary 07/03/21 16:14 Stool Culture - Preliminary Stool 07/03/21 11:38 Anaerobic Culture - Preliminary Buttock 07/03/21 05:25 Urine Culture - Preliminary Urine,Voided H & H 07/02/21 07/03/21 Range/Units 18:56 05:23 Hgb 12.8 9.5 L (11.4-16.0) gm/dL Hct 39.5 32.1 L (34.0-46.0) % Coagulation 07/02/21 Range/Units 18:56 INR 1.1 (<1.2) Result Diagrams: 07/03/21 05:23 07/03/21 05:23 Assessment and Plan Assessment: Assessment: Chronic low back pain Generalized weakness bilaterally lower extremities Frequent falls Difficulty with ambulation L4-5 spondylolisthesis L4-5 and L5-S1 spinal stenosis Lumbar degenerative disc disease Proctitis Colonic diverticulosis Constipation Recent fecal disimpaction Abdominal pain Anal pain Sacral ulcer Coronary artery disease COPD Hypertension Fibromyalgia (1) Chronic low back pain Current Visit: Yes Status: Acute Code(s): M54.50 - LOW BACK PAIN, UNSPECIFIED; G89.29 - OTHER CHRONIC PAIN SNOMED Code(s): 632107978 (2) Spondylolisthesis at L4-L5 level Current Visit: Yes Status: Acute Code(s): M43.16 - SPONDYLOLISTHESIS, LUMBAR REGION SNOMED Code(s): 035117561631929 (3) Lumbar stenosis Current Visit: Yes Status: Acute Code(s): M48.061 - SPINAL STENOSIS, LUMBAR REGION WITHOUT NEUROGENIC FRANK SNOMED Code(s): 36751422 (4) Lumbosacral stenosis Current Visit: Yes Status: Acute Code(s): M48.07 - SPINAL STENOSIS, LUMBOSACRAL REGION SNOMED Code(s): 715155997 (5) Frequent falls Current Visit: Yes Status: Acute Code(s): R29.6 - REPEATED FALLS SNOMED Code(s): 638660398 (6) Sacral ulcer Current Visit: Yes Status: Acute Code(s): L98.429 - NON-PRESSURE CHRONIC ULCER OF BACK WITH UNSPECIFIED SEVERITY SNOMED Code(s): 38648002 (7) Proctitis Current Visit: Yes Status: Acute Code(s): K62.89 - OTHER SPECIFIED DISEASES OF ANUS AND RECTUM SNOMED Code(s): 9014539 (8) Anal or rectal pain Current Visit: Yes Status: Acute Code(s): K62.89 - OTHER SPECIFIED DISEASES OF ANUS AND RECTUM SNOMED Code(s): 736950055 (9) Coronary artery disease Current Visit: Yes Status: Acute Code(s): I25.10 - ATHSCL HEART DISEASE OF [place] CORONARY ARTERY W/O ANG PCTRS SNOMED Code(s): 32491362 (10) COPD (chronic obstructive pulmonary disease) Current Visit: Yes Status: Acute Code(s): J44.9 - CHRONIC OBSTRUCTIVE PULMONARY DISEASE, UNSPECIFIED SNOMED Code(s): 05616124 (11) Hypertension Current Visit: Yes Status: Acute Code(s): I10 - ESSENTIAL (PRIMARY) HYPERTENSION SNOMED Code(s): 50244514 (12) Fibromyalgia Current Visit: Yes Status: Acute Code(s): M79.7 - FIBROMYALGIA SNOMED Code(s): 937104352 (13) Constipation Current Visit: Yes Status: Acute Code(s): K59.00 - CONSTIPATION, UNSPECIFIED SNOMED Code(s): 67755166 (14) Weakness Current Visit: Yes Status: Acute Code(s): R53.1 - WEAKNESS SNOMED Code(s): 12801218 (15) Abdominal pain Current Visit: No Status: Acute Code(s): R10.9 - UNSPECIFIED ABDOMINAL PAIN SNOMED Code(s): 65497861 Plan: Plan: 1. After reviewing of imaging, physical examination of the patient, and further discussion with the patient, we will currently plan to continue conservative treatment in regards to her lumbar spine. She does have significant degenerative changes at her lumbar spine with degenerative disc disease thro ughout her lumbar spine. She also has L4 to 5 spondylolisthesis and apparent spinal canal stenosis and likely spinal stenosis at L5-S1. She does have a history of generalized weakness of her bilateral lower extremities and frequent falls. She states she has been unable to ambulate well over the past year and longer. She uses a motorized wheelchair to aid in ambulation. She states she does spend most of her time sitting upright in a chair. She does not wish to have any surgical intervention in regards to her lumbar spine. She would be willing to work to treatment with pain management. We did discuss we'll plan to consult pain management during her admission to the hospital. We plan to avoid surgical intervention regards to her lumbar spine. Most significantly, patient does continue to have significant abdominal pain, anal pain, and constipation. She recently underwent fecal disimpaction. She will continue to follow with other medical providers for treatment and evaluation in this regard. From an orthopedic spine standpoint, patient is clear for discharge. Patient may follow- up with Eduardo Willis PA-C or Dr. Wilber Peña at [facility] in 3 weeks following discharge. 2. Patient will continue be seen examined by multiple other medical providers f or her other medical diagnoses Time with Patient: Greater than 30 (Including obtaining history, physical examination, reviewing of imaging, and dictation.)
[2021-07-04] MEDS ORDERED: MORPHINE SULFATE 4 MG/ML SYRINGE IVP PRN (09:22)
[2021-07-04] MEDS: HYDROcodone/APAP 5-325MG 1 EACH TAB PO PRN ×2 (09:40→16:09)
[2021-07-04 13:24] VITALS: BMI 28.3
--- NOTE | 2021-07-04 16:17 | P.PAINCN ---
History of Present Illness - Reason for Consult Consult date: 07/04/21 Abdominal pain - Chief Complaint Periumbilical Abdominal pain - History of Present Illness Ms. Wolfe is a 75 -year-old pleasant female consulted for abdominal pain, and low back pain. Patient is a poor historian. Patient had a history of constipation on 06/30/2021 patient had stool disimpaction. Currently she is complaining of constipation, and the umbilical pain. Patient describes pain is aching, throbbing, cramping constant type of pain. Patient also complaining minimal lumbar back pain. Per patient her back pain is not concerning her at this time. Patient rated pain levels are 8-9 out of 10 in severity. Activities making pain worse. Medications helping in relieving her pain to some extent . Patient received enema yesterday. She had a history of multiple falls, pain over the right hip area positive but x-ray showed negative. Denied any side effects with the medications except constipation. Denied any bladder problems at this time. Patient had a history of decubitus ulcers, patient using a motorized scooter for ambulation. But as per RN patient able to ambulate with help during physical therapy today. Patient denies any suicidal or homicidal ideations intent or plan. Patient denies any auditory or visual hallucinations. Patient denied any red flag symptoms related to pain. Per patient she has poor appetite, she is not eating well for last 2 months. Review of Systems All systems: negative Constitutional: Denies chills, Denies fever Eyes: denies blurred vision, denies pain Ears, nose, mouth and throat: Denies headache, Denies sore throat Cardiovascular: Denies chest pain, Denies shortness of breath Respiratory: Denies cough Gastrointestinal: Reports abdominal pain, Reports constipation, Denies diarrhea, Denies nausea, Denies vomiting Genitourinary: Denies dysuria, Denies hematuria Musculoskeletal: Reports low back pain Musculoskeletal: right: hip pain Integumentary: Reports sores, Reports wounds, Denies pruritus, Denies rash Neurological: Reports weakness, Denies numbness Psychiatric: Reports depression, Denies anxiety Endocrine: Reports fatigue, Denies weight change Past Medical History Past Medical History: Coronary Artery Disease (CAD), COPD, Fibromyalgia, Hypertension, Musculoskeletal Disorder, Sleep Apnea/CPAP/BIPAP Additional Past Medical History / Comment(s): chronic back pain, severe osteoarthritis and the patient has difficult mobility and the patient gets around with the help of a power chair, previous history of obstructive sleep apnea, hypertension, fibromyalgia, osteoarthritis, fibrocystic disease of the breast, constipation, multiple falls History of Any Multi-Drug Resistant Organisms: MRSA Year Discovered:: 08/13/17 MDRO Source:: LEG Past Surgical History: Appendectomy, Breast Surgery, Cholecystectomy, Hysterectomy, Orthopedic Surgery Additional Past Surgical History / Comment(s): Bilateral knee replacements, fecal disimpaction Past Anesthesia/Blood Transfusion Reactions: No Reported Reaction Past Psychological History: Anxiety, Depression Smoking Status: Former smoker Past Alcohol Use History: None Reported Past Drug Use History: None Reported - Past Family History Mother Family Medical History: No Reported History Father Family Medical History: No Reported History Medications and Allergies Home Medications Medication Instructions Recorded Confirmed Type Omeprazole 20 mg PO DAILY 08/13/17 07/02/21 History Allopurinol [Zyloprim] 100 mg PO DAILY 06/14/21 07/02/21 History Fluticasone/Vilanterol [Breo 1 puff INHALATION RT-BID 06/14/21 07/02/21 History Ellipta 100-25 Mcg Inhaler] HYDROcodone/APAP 5-325MG [[place] 1 tab PO Q8H PRN 06/14/21 07/02/21 History 5-325] Sucralfate [Carafate] 1 gm PO DAILY 06/14/21 07/02/21 History atenoloL [Tenormin] 25 mg PO DAILY 06/14/21 07/02/21 History Ondansetron Odt [Zofran ODT] 8 mg PO Q8HR PRN 06/28/21 07/02/21 History Tiotropium 2.5 Mcg/Puff [Spiriva 1 puff INHALATION RT-DAILY 06/28/21 07/02/21 H istory Respimat 2.5 Mcg] Nystatin 100,000 Unit/gm Powd 1 applic TOPICAL TID 07/01/21 07/02/21 Rx [Mycostatin Powder] polyethylene glycoL 3350 [Miralax] 17 gm PO DAILY packet 07/01/21 07/02/21 Rx Allergies Allergy/AdvReac Type Severity Reaction Status Date / Time Sulfa (Sulfonamide Allergy Rash/Hives Verified 07/02/21 17:42 Antibiotics) morphine AdvReac Nausea & Verified 07/02/21 17:42 Vomiting Physical Exam Vitals: Vital Signs Temp Pulse Pulse Resp BP Pulse Ox 07/04/21 14:00 98.6 F 80 19 168/75 98 07/04/21 08:00 97.9 F 84 19 166/70 96 07/04/21 07:37 83 07/04/21 07:27 82 97 07/04/21 02:04 98.0 F 79 18 165/66 99 07/03/21 20:45 68 07/03/21 20:35 62 07/03/21 20:00 18 07/03/21 19:18 98.4 F 79 18 138/70 99 Intake and Output 07/04/21 07/04/21 07/04/21 06:59 14:59 22:59 Intake Total 1300 Output Total 400 500 Balance 900 -500 Intake: Intake, IV Titration 1200 Amount Sodium Chloride 0.9% 1, 1200 000 ml @ 100 mls/hr IV . Q10H [facility] Rx#:[id number] Oral 100 Output: Urine 400 500 Other: Voiding Method External Catheter # Voids 2 # Bowel Movements 1 Weight 63.503 kg General: Well-developed, well-nourished, mild acute distress HEENT: Normocephalic, and atraumatic Neck: Supple, no neck swelling Psychiatric: Appropriate mood, and affect Abdomen: Tenderness over periumbilical area positive. DESIGN AGENT: No focal neurological deficits Lumbar spine: Paravertebral tenderness: positive Lumbar facet load test : Unable to perform secondary to position Sacroiliac joint tenderness: Positive Thigh thrust test: Unable to perform SI joint compression test: Unable to perform Fabere test: Unable to perform Multiple trigger points over lumbar spine area. Results CBC & Chem 7: 07/03/21 05:23 07/03/21 05:23 Labs: Microbiology - Last 24 Hours (Table) 07/03/21 05:25 Urine Culture - Preliminary Urine,Voided Gram Neg Bacilli 07/03/21 11:38 Gram Stain - Preliminary Buttock Wound Culture - Preliminary Gram Neg Bacilli 07/03/21 16:14 Stool Culture - Preliminary Stool 07/03/21 11:38 Anaerobic Culture - Preliminary Buttock CT scan - abdomen: report reviewed CT scan - pelvis: report reviewed Assessment and Plan Assessment: Acute on chronic constipation Periumbilical Abdominal pain secondary to constipation Chronic lumbar back pain Lumbar spinal canal stenosis, lumbar spondylosis without myelopathy as per orthopedic consultation note Myofascial pain syndrome, and chronic pain syndrome Plan: #1 Diagnoses, prognosis, and multiple treatment options including but not limited to physical therapy, interventional therapy, adjunct medication therapy, narcotic medication, and interventional options were discussed with the patient. And all questions were answered to the patient's satisfaction. #2 treatment plan agreement : Patient was thoroughly discussed regarding the treatment options, alternatives, and importance of exercises as tolerated. Patient clearly understood. Patient periumbilical abdominal pain secondary to constipation, at this time patient doesn't want any intervention procedures done for her back as patient is complaining her low back pain is very minimal. Patient received any enema yesterday. Patient encouraged to take high-fiber diet, less narcotic medications, drink plenty of water, MiraLAX, colace as needed. If all of the above medications / conservative therapy not helpful , and Opioid-Induced Constipation is a strong suspicious cause then use methylnaltrexone 8 mg/dose subcutaneous every other day . #3 consultation : Gastroenterology / Gen. surgery consultation for disimpaction if patient doesn't have any bowel movement. Narcotic medications: may makes patient constipation worse. Once constipation issued resolved, if needed pain team will reevaluate the patient if need for lumbar back pain. Patient doesn't want any intervention procedures at this time. Patient can follow-up with us in outpatient pain management clinic for her chronic lumbar back pain management if needed. Time with Patient: Less than 30 PQRS Measure Charge Sheet - Pain Location Buttock Non-Pharmacological Interventions: Darkened Room, Distraction Pharmacological Interventions: PRN Medication Pain Comment: Pt states her pain is "everywhere". PQRS Narrative: Smoking Status Former smoker Do You Want the Pneumonia Vaccine Up to Date Vaccine AT THIS TIME? Blood Pressure [Right Arm] 168/75 Blood Pressure 150/72 Pain Intensity [Buttock] 10 Pain Intensity 10 Pain Scale Used Numeric (1 - 10) Scale Used Numeric (1 - 10) Home Medications: Ambulatory Orders Omeprazole 20 mg PO DAILY 08/13/17 Allopurinol [Zyloprim] 100 mg PO DAILY 06/14/21 Fluticasone/Vilanterol [Breo Ellipta 100-25 Mcg Inhaler] 1 puff INHALATION RT- BID 06/14/21 HYDROcodone/APAP 5-325MG [[place] 5-325] 1 tab PO Q8H PRN 06/14/21 Sucralfate [Carafate] 1 gm PO DAILY 06/14/21 atenoloL [Tenormin] 25 mg PO DAILY 06/14/21 Ondansetron Odt [Zofran ODT] 8 mg PO Q8HR PRN 06/28/21 Tiotropium 2.5 Mcg/Puff [Spiriva Respimat 2.5 Mcg] 1 puff INHALATION RT-DAILY 06/28/21 Nystatin 100,000 Unit/gm Powd [Mycostatin Powder] 1 applic TOPICAL TID 07/01/21 polyethylene glycoL 3350 [Miralax] 17 gm PO DAILY packet 07/01/21
--- NOTE | 2021-07-04 19:46 | P.PN ---
Subjective This is a pleasant 75 years old female with past medical history of Coronary Artery Disease, COPD, Fibromyalgia, Hypertension, Sleep Apnea/CPAP/BIPAP, chronic back pain, severe osteoarthritis and the patient has difficult mobility and the patient gets around with the help of a power chair, previous history of obstructive sleep apnea, fibrocystic disease of the breast She was recently discharged from the hospital 3 days ago 06/30, she was admitted to the hospital with abdominal pain and constipation found to have fecal impaction; She underwent flexible sigmoidoscopy with manual inflation for her proctatitis and fecal dysimpaction. Patient states that when she left the hospital she was very weak, she has pain in her bouts and treated as 6/10 for a few days since last admission, however she could not specify when exactly started this pain. Patient states that she did not have bowel movement since last admission after she had fecal disimpaction. No nausea vomiting. Also she has abdominal pain and tenderness it looks generalized and lower abdominal. Also patient states that she cannot walk for more than a year, she moves out using a walker old and electric wheelchair. Patient also has stage I sacral pressure ulcer She fell several times and now she is complaining from pain in her right hip area. Patient states that also she has poor appetite and this is a that she eats well she has not been eating well for the last 2 months Patient vitals are stable and she is afebrile Labs reviewed and shows mild leukocytosis of 11.5, platelets slightly low at 141, rest of labs including BMP and LFTs are unremarkable. Vasquez varus not detected Chest x-ray negative for acute process Patient was started on normal saline 100 mL per hour and admitted to the hospital for placement to rehab with PT/OT evaluation We ordered CT of the abdomen and pelvis without contrast: Circumferential rectal wall thickening consistent with prostatitis. Colonic diverticulosis. Gastric lap band changes similar to prior 07/04/2021 Patient is still complaining of from abdominal pain with no bowel movement, morphine is added but pain management recommended to avoid as it might contribute to constipation which is the main reason for pain for the patient. Also her pain could be related to hepatitis, however when checked and drawn bedside nurse states patient pain is controlled with narcotic. Patient is already on MiraLAX at home we added Colace. Hemodynamically stable, afebrile. CBC showing hemoglobin delusion, double BC 9.2, hemoglobin 8.5 and platelets 133. Also broughtcalcitonin is elevated at 0.16 and CRP at 11.7 which goes with infection. Her wound culture is growing gram-negative bacilli, her urine culture is growing gram-negative bacilli as she has infected pressure ulcers and possible UTI and also prostatitis. We sent for C. diff and stool culture and sensitivity which are pending for now. Patient evaluated by orthopedic surgery who recommended pain management, no surgical intervention. Also infectious disease team on the case Patient continued on ceftriaxone 2 g, Flagyl, normal splenic 100 mL per hour. Patient's wants to be DO NOT RESUSCITATE Prognosis remains guarded and we will keep follow up closely Objective - Vital Signs Vital signs: Vital Signs Temp 97.9 F 07/04/21 08:00 Pulse 84 07/04/21 08:00 Resp 19 07/04/21 08:00 BP 166/70 07/04/21 08:00 Pulse Ox 96 07/04/21 08:00 Intake & Output 07/03/21 07/04/21 07/04/21 18:59 06:59 18:59 Intake Total 1300 Output Total 400 Balance 900 Intake: Intake, IV Titration 1200 Amount Sodium Chloride 0.9% 1, 1200 000 ml @ 100 mls/hr IV . Q10H [facility] Rx#:[id number] Oral 100 Output: Urine 400 Other: Voiding Method External Catheter External Catheter External Catheter # Voids 1 2 # Bowel Movements 2 1 - Exam GENERAL: The patient is alert and oriented x3, not in any acute distress. Well developed, well nourished. HEENT: Pupils are round and equally reacting to light. EOMI. No scleral icterus. No conjunctival pallor. Normocephalic, atraumatic. No pharyngeal erythema. No thyromegaly. CARDIOVASCULAR: S1 and S2 present. No murmurs, rubs, or gallops. PULMONARY: Chest is clear to auscultation, no wheezing or crackles. -ABDOMEN: Soft, generalized abdominal tenderness, more in the lower abdomen, no rebound tenderness or guarding, nondistended, normoactive bowel sounds. No palpable organomegaly. Rectal exam done after patient gave verbal consent and it was very painful for the patient MUSCULOSKELETAL: No joint swelling or deformity. EXTREMITIES: No cyanosis, clubbing, or pedal edema. NEUROLOGICAL: Gross neurological examination did not reveal any focal deficits. SKIN: No rashes. no petechiae. - Labs CBC & Chem 7: 07/03/21 05:23 07/03/21 05:23 Labs: Abnormal Lab Results - Last 24 Hours (Table) 07/03/21 07/03/21 Range/Units 05:23 05:23 C-Reactive Protein 11.70 H (0.00-0.80) mg/dL Procalcitonin 0.16 H (0.02-0.09) ng/mL Microbiology - Last 24 Hours (Table) 07/03/21 05:25 Urine Culture - Preliminary Urine,Voided Gram Neg Bacilli 07/03/21 11:38 Gram Stain - Preliminary Buttock Wound Culture - Preliminary Gram Neg Bacilli 07/03/21 16:14 Stool Culture - Preliminary Stool 07/03/21 11:38 Anaerobic Culture - Preliminary Buttock Assessment and Plan Assessment: acute proctatitis possible urinary tract infection Infected pressure ulcer with gram-negative bacilli Spinal stenosis at L4-L5 with ongoing difficulty in mobility for more than a year. Patient uses an electric wheelchair and walker Multiple falls without syncope Right hip pain secondary to fall, rule out fracture Generalized weakness History of coronary artery disease Hypertension History of fibromyalgia COPD, no acute exacerbation Sleep apnea Chronic back pain History of severe osteoarthritis and difficulty in mobility Plan: This is a pleasant 75 result female who presents with generalized weakness. Start ceftriaxone and Rocephin. Follow-up culture results of the urine, pressure ulcers and stool culture and sensitivity and C. diff. ID team consult Continue with laxatives Pain management with [place]. Patient and management team recommended to avoid morphine Continue with IV hydration Labs and medication were reviewed.. Continue same treatment. Continue with symptomatic treatment. Resume home medication. Monitor lytes and vitals. DVT and GI prophylaxis. Further recommendations depends on the clinical course of the patient DVT prophylaxis: Subcutaneous heparin GI Prophylaxis: Ppi PT/OT: Pending Prognosis is guarded
[2021-07-04] MEDS: DOCUSATE 100 MG CAP PO SCH (20:56)
[2021-07-04] MEDS: TAMSULOSIN 0.4 MG CAP.ER.24H PO SCH (20:59)
--- NOTE | 2021-07-04 22:14 | PN ---
PROGRESS NOTE DATE OF SERVICE: 07/04/2021 REASON FOR FOLLOWUP: UTI and a question of proctitis. INTERVAL HISTORY: The patient is afebrile. The patient is breathing more comfortably. Denies having any chest pain, shortness of breath or cough. No abdominal pain or any worsening diarrhea per the nursing staff. PHYSICAL EXAMINATION: Blood pressure 146/73 with a pulse of 79, temperature 98.6. She is 95% on room air. General description is an elderly female lying in bed in no distress. Respiratory system: Unlabored breathing, clear to auscultation anteriorly. Heart S1, S2. Regular rate and rhythm. Abdomen soft, no tenderness. LABS: Hemoglobin 9.5, white count of 9, creatinine 0.9. Urine showing Gram-negative bacilli. DIAGNOSTIC IMPRESSION AND PLAN: Patient with a Gram-negative urinary tract infection and also a question of proctitis seen on seen on the CT. Patient is covered with Rocephin and Flagyl; to continue, as white count has come down, and monitor clinical course closely. Continue supportive care. MMODL / IJN: [id number] /
[2021-07-05] MEDS: metroNIDAZOLE-NS PMX 500 MG in SALINE 1 100ML.BAG IVPB SCH ×3 (00:30→16:31)
[2021-07-05] MEDS: HYDROcodone/APAP 5-325MG 1 EACH TAB PO PRN ×3 (05:59→22:09)
[2021-07-05] MEDS: SYMBICORT 80-4.5 MCG INHALER INHALATION SCH ×2 (09:11→19:03)
[2021-07-05] MEDS: IPRATROPIUM 0.5 MG/2.5 ML NEBU INHALATION SCH ×4 (09:11→19:06)
[2021-07-05] MEDS: SODIUM CHLORIDE 0.9% 1,000 ML IV SCH ×2 (09:47→16:30)
[2021-07-05] MEDS: HEPARIN SODIUM,PORCINE/PF 5,000 UNIT/0.5 ML SYRINGE SQ SCH ×2 (09:48→20:52)
[2021-07-05] MEDS: atenoloL 25 MG TAB PO SCH (09:48)
[2021-07-05] MEDS: DOCUSATE 100 MG CAP PO SCH ×2 (09:48→20:51)
[2021-07-05] MEDS: PANTOPRAZOLE 40 MG TABLET PO SCH (09:48)
[2021-07-05] MEDS: SUCRALFATE 1 GM TAB PO SCH (09:48)
[2021-07-05] MEDS: polyethylene glycoL 3350 17 GM POWD.PACK PO SCH (09:48)
[2021-07-05] MEDS: allopurinoL 100 MG TAB PO SCH (09:48)
[2021-07-05 11:27] LABS: African American GFR (CKD) 101.9 (60.0-200.0); Albumin 2.3 g/dL (3.8-4.9); Anion Gap 10.5 mmol/L (10.00-18.00); BUN/Creat Ratio 12.83 Ratio (12.00-20.00); Blood Urea Nitrogen 7.7 mg/dL (9.0-27.0); Calcium 7.8 mg/dL (8.7-10.3); Carbon Dioxide 19.5 mmol/L (20.0-27.5); Globulin 2.3 g/dL (1.6-3.3); Magnesium 1.6 mg/dL (1.5-2.4); Non-African American GFR(CKD) 87.9 (60.0-200.0); Potassium 3.9 mmol/L (3.5-5.5); Total Bilirubin 0.2 mg/dL (0.30-1.20); Total Protein 4.6 g/dL (6.2-8.2)
--- NOTE | 2021-07-05 13:07 | PN ---
PROGRESS NOTE DATE OF SERVICE: 07/05/2021 REASON FOR FOLLOWUP: UTI and bronchitis. INTERVAL HISTORY: The patient is afebrile. She has been complaining of abdominal pain and also complaining of diarrhea. The patient denies having any chest pain, shortness of breath or cough. PHYSICAL EXAMINATION: Blood pressure is 137/51 with a pulse of 70, temperature 97.4. She is 96% on room air. General description is an elderly female lying in bed in no distress. Respiratory system: Unlabored breathing, clear to auscultation anteriorly. Heart S1, S2. Regular rate and rhythm. Abdomen soft, no tenderness. LABS: Creatinine 0.6. Stool culture pending. DIAGNOSTIC IMPRESSION AND PLAN: Patient admitted to hospital with weakness and diarrhea in this patient who did have a component of urinary tract infection. Urine is Proteus mirabilis. CT also shows problems with proctitis. Stool culture is pending. Patient to continue with Rocephin and Flagyl, adjusting antibiotic further on the basis of the culture report. Continue supportive care. MMODL / IJN: [id number] /
--- NOTE | 2021-07-05 15:40 | P.GSCN ---
<Maya Pierce - Last Filed: 07/05/21 15:44> History of Present Illness Consult date: 07/05/21 History of present illness: CHIEF COMPLAINT: Weakness HISTORY OF PRESENT ILLNESS: This is a 75-year-old female who presents to the hospital with complaints of weakness. She was recently discharged on 07/01/2021 and during that time she was treated for fecal impaction and underwent manual disimpaction with flexible sigmoidoscopy. Patient also found have evidence of proctitis. Patient reports that she had not had a bowel movement at home after she was discharged. Today she reports having about 5 small bowel movements. She denies any nausea or vomiting. Patient reports that her pain is in the mid abdomen and currently at the site of her lap band port. She had the lap band port placed in 2018. She reports is no fluid present in the band currently. Patient reports that she is able to eat her food after she is given pain medication. She's been seen by orthopedics regarding her back pain as well as pain management team. And she is also being treated for possible UTI and infected sacral ulcer. Patient denies any fever or chills or sweats. Denies any nausea or vomiting. Patient denies any rectal pain. Denies any blood in her stools. Per nursing staff patient refused her MiraLAX today. PAST MEDICAL HISTORY: See list. PAST SURGICAL HISTORY: See list. MEDICATIONS: See list. ALLERGIES: See list. SOCIAL HISTORY: No illicit drug use. REVIEW OF SYSTEMS: CONSTITUTIONAL: Denies fever or chills. HEENT: Denies blurred vision, vision changes, or eye pain. Denies hemoptysis CARDIOVASCULAR: Denies chest pain or pressure. RESPIRATORY: No shortness of breath. GASTROINTESTINAL: See HPI for pertinent findings HEMATOLOGIC: Denies bleeding disorders. GENITOURINARY: Denies any blood in urine or increased urinary frequency. SKIN: Denies pruitis. Denies rash. PHYSICAL EXAM: VITAL SIGNS: Reviewed GENERAL: Well-developed in no acute distress. HEENT: No sclera icterus. Extraocular movements grossly intact. Moist buccal mucosa. Head is atraumatic, normocephalic. No nasal drainage. ABDOMEN: Soft. Nondistended. Mid abdominal tenderness and tenderness at the lap band port. No erythema NEUROLOGIC: Alert and oriented. Cranial nerves II through XII grossly intact. LABORATORY DATA: WBC 11.5 down to 9.28 hemoglobin 12.8 down to 9.5 platelets 133 Sodium 142 potassium 3.9 creatinine 0.6 Lactic acid 1.0 Magnesium 1.6 AST 40 down to 16 ALT 24 troponin less than 0.012 CRP 11.70 Wound culture from sacral ulcer gram-negative bacilli Urine culture Proteus mirabilis IMAGING: Computed tomography scan abdomen and pelvis circumferential rectal wall thickening consistent with proctitis, colonic diverticulosis, gastric lap band changes similar to prior study. Gastric lap band and reservoir present and appear intact ASSESSMENT: 1. Abdominal pain with pain at lap band port and mid abdomen 2. Proctitis: Rectal wall thickening noted on CAT scan consistent with proctitis 3. History of constipation and fecal impaction requiring flexible sigmoidoscopy with disimpaction on 06/30/2020 PLAN: -Further recommendations forthcoming per surgeon -Continue antibiotics per ID service -Follow up on stool culture results -Continue supportive care Thank you for this consultation Physician Art Director note has been reviewed by physician. Signing provider agrees with the documented findings, assessment, and plan of care. Past Medical History Past Medical History: Coronary Artery Disease (CAD), COPD, Fibromyalgia, Hy pertension, Musculoskeletal Disorder, Sleep Apnea/CPAP/BIPAP Additional Past Medical History / Comment(s): chronic back pain, severe osteoarthritis and the patient has difficult mobility and the patient gets around with the help of a power chair, previous history of obstructive sleep apnea, hypertension, fibromyalgia, osteoarthritis, fibrocystic disease of the breast, constipation, multiple falls History of Any Multi-Drug Resistant Organisms: MRSA Year Discovered:: 08/13/17 MDRO Source:: LEG Past Surgical History: Appendectomy, Breast Surgery, Cholecystectomy, Hysterec juan, Orthopedic Surgery Additional Past Surgical History / Comment(s): Bilateral knee replacements, fecal disimpaction Past Anesthesia/Blood Transfusion Reactions: No Reported Reaction Past Psychological History: Anxiety, Depression Smoking Status: Former smoker Past Alcohol Use History: None Reported Past Drug Use History: None Reported - Past Family History Mother Family Medical History: No Reported History Father Family Medical History: No Reported History Medications and Allergies Home Medications Medication Instructions Recorded Confirmed Type Omeprazole 20 mg PO DAILY 08/13/17 07/02/21 History Allopurinol [Zyloprim] 100 mg PO DAILY 06/14/21 07/02/21 History Fluticasone/Vilanterol [Breo 1 puff INHALATION RT-BID 06/14/21 07/02/21 History Ellipta 100-25 Mcg Inhaler] HYDROcodone/APAP 5-325MG [[place] 1 tab PO Q8H PRN 06/14/21 07/02/21 History 5-325] Sucralfate [Carafate] 1 gm PO DAILY 06/14/21 07/02/21 History atenoloL [Tenormin] 25 mg PO DAILY 06/14/21 07/02/21 History Ondansetron Odt [Zofran ODT] 8 mg PO Q8HR PRN 06/28/21 07/02/21 History Tiotropium 2.5 Mcg/Puff [Spiriva 1 puff INHALATION RT-DAILY 06/28/21 07/02/21 History Respimat 2.5 Mcg] Nystatin 100,000 Unit/gm Powd 1 applic TOPICAL TID 07/01/21 07/02/21 Rx [Mycostatin Powder] polyethylene glycoL 3350 [Miralax] 17 gm PO DAILY packet 07/01/21 07/02/21 Rx Allergies Allergy/AdvReac Type Severity Reaction Status Date / Time Sulfa (Sulfonamide Allergy Rash/Hives Verified 07/02/21 17:42 Antibiotics) morphine AdvReac Nausea & Verified 07/02/21 17:42 Vomiting Surgical - Exam Vital Signs Temp Pulse Resp BP Pulse Ox 98.2 F 92 18 157/67 97 07/02/21 15:47 07/02/21 15:47 07/02/21 15:47 07/02/21 15:47 07/02/21 15:47 Results - Labs 07/03/21 05:23 07/05/21 05:31 Abnormal Lab Results - Last 24 Hours (Table) 07/05/21 Range/Units 05:31 Chloride 112 H (96-109) mmol/L Carbon Dioxide 19.5 L (20.0-27.5) mmol/L BUN 7.7 L (9.0-27.0) mg/dL Calcium 7.8 L (8.7-10.3) mg/dL Total Bilirubin 0.20 L (0.30-1.20) mg/dL Total Protein 4.6 L (6.2-8.2) g/dL Albumin 2.3 L (3.8-4.9) g/dL Albumin/Globulin Ratio 1.00 L (1.60-3.17) g/dL Microbiology - Last 24 Hours (Table) 07/03/21 05:25 Urine Culture - Final Urine,Voided Proteus mirabilis Diabetes panel 07/05/21 Range/Units 05:31 Sodium 142 (135-145) mmol/L Potassium 3.9 (3.5-5.5) mmol/L Chloride 112 H (96-109) mmol/L Carbon Dioxide 19.5 L (20.0-27.5) mmol/L BUN 7.7 L (9.0-27.0) mg/dL Creatinine 0.6 (0.6-1.5) mg/dL Glucose 89 (70-110) mg/dL Calcium 7.8 L (8.7-10.3) mg/dL AST 16 (13-35) U/L ALT 24 (8-44) U/L Alkaline Phosphatase 52 (41-126) U/L Total Protein 4.6 L (6.2-8.2) g/dL Albumin 2.3 L (3.8-4.9) g/dL Calcium panel 07/05/21 Range/Units 05:31 Calcium 7.8 L (8.7-10.3) mg/dL Albumin 2.3 L (3.8-4.9) g/dL Pituitary panel 07/05/21 Range/Units 05:31 Sodium 142 (135-145) mmol/L Potassium 3.9 (3.5-5.5) mmol/L Chloride 112 H (96-109) mmol/L Carbon Dioxide 19.5 L (20.0-27.5) mmol/L BUN 7.7 L (9.0-27.0) mg/dL Creatinine 0.6 (0.6-1.5) mg/dL Glucose 89 (70-110) mg/dL Calcium 7.8 L (8.7-10.3) mg/dL Adrenal panel 07/05/21 Range/Units 05:31 Sodium 142 (135-145) mmol/L Potassium 3.9 (3.5-5.5) mmol/L Chloride 112 H (96-109) mmol/L Carbon Dioxide 19.5 L (20.0-27.5) mmol/L BUN 7.7 L (9.0-27.0) mg/dL Creatinine 0.6 (0.6-1.5) mg/dL Glucose 89 (70-110) mg/dL Calcium 7.8 L (8.7-10.3) mg/dL Total Bilirubin 0.20 L (0.30-1.20) mg/dL AST 16 (13-35) U/L ALT 24 (8-44) U/L Alkaline Phosphatase 52 (41-126) U/L Total Protein 4.6 L (6.2-8.2) g/dL Albumin 2.3 L (3.8-4.9) g/dL <Moreno Prakash - Last Filed: 07/05/21 16:05> History of Present Illness History of present illness: as above.the patient recently hospitalized for fecal impaction. CAT scan reviewed. Patient has some mild inflammation of the rectal wall consistent with resolving proctitis from the impaction. Patient is mildly tender at her lap band port site. Skin looks normal. CAT scan shows no abnormalities at the p ort. Patient remains somewhat confused. Will order esophagram for tomorrow. If that study is normal there would be no urgency to remove the patient's lap band at this time. Surgical - Exam Vital Signs Temp Pulse Resp BP Pulse Ox 98.2 F 92 18 157/67 97 07/02/21 15:47 07/02/21 15:47 07/02/21 15:47 07/02/21 15:47 07/02/21 15:47 Results - Labs 07/03/21 05:23 07/05/21 05:31 Abnormal Lab Results - Last 24 Hours (Table) 07/05/21 Range/Units 05:31 Chloride 112 H (96-109) mmol/L Carbon Dioxide 19.5 L (20.0-27.5) mmol/L BUN 7.7 L (9.0-27.0) mg/dL Calcium 7.8 L (8.7-10.3) mg/dL Total Bilirubin 0.20 L (0.30-1.20) mg/dL Total Protein 4.6 L (6.2-8.2) g/dL Albumin 2.3 L (3.8-4.9) g/dL Albumin/Globulin Ratio 1.00 L (1.60-3.17) g/dL Microbiology - Last 24 Hours (Table) 07/03/21 05:25 Urine Culture - Final Urine,Voided Proteus mirabilis Diabetes panel 07/05/21 Range/Units 05:31 Sodium 142 (135-145) mmol/L Potassium 3.9 (3.5-5.5) mmol/L Chloride 112 H (96-109) mmol/L Carbon Dioxide 19.5 L (20.0-27.5) mmol/L BUN 7.7 L (9.0-27.0) mg/dL Creatinine 0.6 (0.6-1.5) mg/dL Glucose 89 (70-110) mg/dL Calcium 7.8 L (8.7-10.3) mg/dL AST 16 (13-35) U/L ALT 24 (8-44) U/L Alkaline Phosphatase 52 (41-126) U/L Total Protein 4.6 L (6.2-8.2) g/dL Albumin 2.3 L (3.8-4.9) g/dL Calcium panel 07/05/21 Range/Units 05:31 Calcium 7.8 L (8.7-10.3) mg/dL Albumin 2.3 L (3.8-4.9) g/dL Pituitary panel 07/05/21 Range/Units 05:31 Sodium 142 (135-145) mmol/L Potassium 3.9 (3.5-5.5) mmol/L Chloride 112 H (96-109) mmol/L Carbon Dioxide 19.5 L (20.0-27.5) mmol/L BUN 7.7 L (9.0-27.0) mg/dL Creatinine 0.6 (0.6-1.5) mg/dL Glucose 89 (70-110) mg/dL Calcium 7.8 L (8.7-10.3) mg/dL Adrenal panel 07/05/21 Range/Units 05:31 Sodium 142 (135-145) mmol/L Potassium 3.9 (3.5-5.5) mmol/L Chloride 112 H (96-109) mmol/L Carbon Dioxide 19.5 L (20.0-27.5) mmol/L BUN 7.7 L (9.0-27.0) mg/dL Creatinine 0.6 (0.6-1.5) mg/dL Glucose 89 (70-110) mg/dL Calcium 7.8 L (8.7-10.3) mg/dL Total Bilirubin 0.20 L (0.30-1.20) mg/dL AST 16 (13-35) U/L ALT 24 (8-44) U/L Alkaline Phosphatase 52 (41-126) U/L Total Protein 4.6 L (6.2-8.2) g/dL Albumin 2.3 L (3.8-4.9) g/dL
[2021-07-05] MEDS: TAMSULOSIN 0.4 MG CAP.ER.24H PO SCH (16:31)
--- NOTE | 2021-07-05 19:08 | P.PN ---
Subjective This is a pleasant 75 years old female with past medical history of Coronary Artery Disease, COPD, Fibromyalgia, Hypertension, Sleep Apnea/CPAP/BIPAP, chronic back pain, severe osteoarthritis and the patient has difficult mobility and the patient gets around with the help of a power chair, previous history of obstructive sleep apnea, fibrocystic disease of the breast She was recently discharged from the hospital 3 days ago 06/30, she was admitted to the hospital with abdominal pain and constipation found to have fecal impaction; She underwent flexible sigmoidoscopy with manual inflation for her proctatitis and fecal dysimpaction. Patient states that when she left the hospital she was very weak, she has pain in her bouts and treated as 6/10 for a few days since last admission, however she could not specify when exactly started this pain. Patient states that she did not have bowel movement since last admission after she had fecal disimpaction. No nausea vomiting. Also she has abdominal pain and tenderness it looks generalized and lower abdominal. Also patient states that she cannot walk for more than a year, she moves out using a walker old and electric wheelchair. Patient also has stage I sacral pressure ulcer She fell several times and now she is complaining from pain in her right hip area. Patient states that also she has poor appetite and this is a that she eats well she has not been eating well for the last 2 months Patient vitals are stable and she is afebrile Labs reviewed and shows mild leukocytosis of 11.5, platelets slightly low at 141, rest of labs including BMP and LFTs are unremarkable. Vasquez varus not detected Chest x-ray negative for acute process Patient was started on normal saline 100 mL per hour and admitted to the hospital for placement to rehab with PT/OT evaluation We ordered CT of the abdomen and pelvis without contrast: Circumferential rectal wall thickening consistent with prostatitis. Colonic diverticulosis. Gastric lap band changes similar to prior 07/04/2021 Patient is still complaining of from abdominal pain with no bowel movement, morphine is added but pain management recommended to avoid as it might contribute to constipation which is the main reason for pain for the patient. Also her pain could be related to hepatitis, however when checked and drawn bedside nurse states patient pain is controlled with narcotic. Patient is already on MiraLAX at home we added Colace. Hemodynamically stable, afebrile. CBC showing hemoglobin delusion, double BC 9.2, hemoglobin 8.5 and platelets 133. Also broughtcalcitonin is elevated at 0.16 and CRP at 11.7 which goes with infection. Her wound culture is growing gram-negative bacilli, her urine culture is growing gram-negative bacilli as she has infected pressure ulcers and possible UTI and also prostatitis. We sent for C. diff and stool culture and sensitivity which are pending for now. Patient evaluated by orthopedic surgery who recommended pain management, no surgical intervention. Also infectious disease team on the case Patient continued on ceftriaxone 2 g, Flagyl, normal splenic 100 mL per hour. Patient's wants to be DO NOT RESUSCITATE Prognosis remains guarded and we will keep follow up closely 07/05/2021 Patient is more awake and sitting up in bed, she is more comfortable stating that her pain is a 3/10 and much improved compared to yesterday, she had one big large movement last night, she workup with a big base where stool and urine were mixed up, however she feels more relieved. No nausea vomiting and actually she tolerates diet very well. Other than that she is hemodynamically stable. Urine culture is growing Proteus which is sensitive to many antibiotics. On examination she has a tender lump above the umbilicus so we consulted Dr. Prakash we saw her last time She remains on ceftriaxone and Flagyl. Discontinue IV fluids as patient is eating well. Remains on Colace and MiraLAX. Objective - Vital Signs Vital signs: Vital Signs Temp 97.4 F L 07/05/21 08:00 Pulse 82 07/05/21 09:21 Resp 16 07/05/21 09:21 BP 137/51 07/05/21 08:00 Pulse Ox 94 L 07/05/21 09:13 Intake & Output 07/04/21 07/05/21 07/05/21 18:59 06:59 18:59 Output Total 500 1100 Balance -500 -1100 Weight 63.503 kg Output: Urine 500 1100 Other: Voiding Method External Catheter Bedpan Diaper Incontinent # Bowel Movements 1 - Exam GENERAL: The patient is alert and oriented x3, not in any acute distress. Well developed, well nourished. HEENT: Pupils are round and equally reacting to light. EOMI. No scleral icterus. No conjunctival pallor. Normocephalic, atraumatic. No pharyngeal erythema. No thyromegaly. CARDIOVASCULAR: S1 and S2 present. No murmurs, rubs, or gallops. PULMONARY: Chest is clear to auscultation, no wheezing or crackles. -ABDOMEN: Soft, generalized abdominal tenderness, more in the lower abdomen, no rebound tenderness or guarding, nondistended, normoactive bowel sounds. No palpable organomegaly. Rectal exam done after patient gave verbal consent and it was very painful for the patient MUSCULOSKELETAL: No joint swelling or deformity. EXTREMITIES: No cyanosis, clubbing, or pedal edema. NEUROLOGICAL: Gross neurological examination did not reveal any focal deficits. SKIN: No rashes. no petechiae. - Labs CBC & Chem 7: 07/03/21 05:23 07/05/21 05:31 Labs: Microbiology - Last 24 Hours (Table) 07/03/21 05:25 Urine Culture - Final Urine,Voided Proteus mirabilis 07/03/21 11:38 Gram Stain - Preliminary Buttock Wound Culture - Preliminary Gram Neg Bacilli Assessment and Plan Assessment: acute proctatitis urinary tract infection secondary to Proteus Infected pressure ulcer with gram-negative bacilli Spinal stenosis at L4-L5 with ongoing difficulty in mobility for more than a year. Patient uses an electric wheelchair and walker. Evaluated by orthopedic team and cleared for discharge Multiple falls without syncope Right hip pain secondary to fall, fracture follow-up with negative x-rays and patients with no symptoms Generalized weakness History of coronary artery disease Hypertension History of fibromyalgia COPD, no acute exacerbation Sleep apnea Chronic back pain History of severe osteoarthritis and difficulty in mobility Plan: This is a pleasant 75 result female who presents with generalized weakness. Start ceftriaxone and Flagyl. , pressure ulcers and stool culture and sensitivity and C. diff. ID team consult Continue with laxatives Pain management with [place]. Patient and management team recommended to avoid morphine Discontinue IV hydration Labs and medication were reviewed.. Continue same treatment. Continue with symptomatic treatment. Resume home medication. Monitor lytes and vitals. DVT and GI prophylaxis. Further recommendations depends on the clinical course of the patient DVT prophylaxis: Subcutaneous heparin GI Prophylaxis: Ppi PT/OT: Pending Prognosis is guarded
[2021-07-06] MEDS: ONDANSETRON ODT 8 MG TAB.RAPDIS PO PRN ×2 (00:28→13:06)
[2021-07-06] MEDS: metroNIDAZOLE-NS PMX 500 MG in SALINE 1 100ML.BAG IVPB SCH ×2 (00:29→07:12)
[2021-07-06] MEDS: SUCRALFATE 1 GM TAB PO SCH (07:10)
[2021-07-06] MEDS: allopurinoL 100 MG TAB PO SCH (07:10)
[2021-07-06] MEDS: HEPARIN SODIUM,PORCINE/PF 5,000 UNIT/0.5 ML SYRINGE SQ SCH ×2 (07:10→22:10)
[2021-07-06] MEDS: PANTOPRAZOLE 40 MG TABLET PO SCH (07:11)
[2021-07-06] MEDS: atenoloL 25 MG TAB PO SCH (07:11)
[2021-07-06] MEDS: DOCUSATE 100 MG CAP PO SCH ×2 (07:11→22:10)
[2021-07-06] MEDS: HYDROcodone/APAP 5-325MG 1 EACH TAB PO PRN ×2 (07:11→17:27)
[2021-07-06] MEDS: polyethylene glycoL 3350 17 GM POWD.PACK PO SCH (07:18)
[2021-07-06] MEDS: SYMBICORT 80-4.5 MCG INHALER INHALATION SCH ×2 (08:42→19:25)
[2021-07-06] MEDS: IPRATROPIUM 0.5 MG/2.5 ML NEBU INHALATION SCH ×4 (08:43→19:25)
--- NOTE | 2021-07-06 11:13 | FL ---
EXAMINATION TYPE: FL UGI w esophagus DATE OF EXAM: 07/06/2021 LAP BANDING LIMITED ESOPHAGRAM: CLINICAL HISTORY: Weakness, abdominal pain, and constipation. History of lap band originally placed 2007 with complete removal of fluid 2017. TECHNIQUE: Limited UGI-esophagram is performed utilizing barium. 3 seconds of fluoro time and 15 im ages obtained. COMPARISON: CT abdomen and pelvis [address] studies and abdominal x-rays. FINDINGS: Pre-procedure database marketing specialist image shows lap band in stable position and angle in proximal stomac h just below the gastroesophageal junction from back through at least 2013 x-ray. Abnormal increased phi angle is redemonstrated and stable. The patient then drank limited contrast in semiupright position. There is good flow of contrast along the course of the esophagus. There is good flow of contrast along the course of the lap band, there is no evidence of contrast extravasation to suggest leak. There is no new lap band slippage appreci ated. IMPRESSION: No evidence of lap band slippage or significant obstruction.
[2021-07-06 11:29] LABS: Basophils # (A) 0.02 X 10*3/uL (0.00-0.10); Basophils % (A) 0.4 %; Eosinophils # (A) 0.23 X 10*3/uL (0.04-0.35); Eosinophils % (A) 4.7 %; HCT 28.4 % (37.2-46.3); HGB 8.9 g/dL (12.0-15.0); Lymphocytes % (A) 22.4 %; MCH 27.6 pg (27.0-32.0); MCHC 31.3 g/dL (32.0-37.0); MCV 87.9 fL (80.0-97.0); Mean Platelet Volume 10.1 fL (9.5-12.2); Monocytes % (A) 6.1 %; Neutrophils # (A) 3.17 X 10*3/uL (1.80-7.70); Neutrophils % (A) 64.6 %; Platelet Count 145 X 10*3/uL (140-440); RBC 3.23 X 10*6/uL (4.10-5.20); RDW 17.2 % (11.5-14.5); WBC 4.91 X 10*3/uL (4.50-10.00)
--- NOTE | 2021-07-06 11:48 | P.PN ---
<Maya Pierce - Last Filed: 07/06/21 11:42> Subjective Progress Note Date: 07/06/21 CHIEF COMPLAINT: Abdominal pain HISTORY OF PRESENT ILLNESS: Surgical service following regards to patient's abdominal pain. Patient has been having bowel movements. She still complains of pain at the lap band port site. Patient does report some nausea and some difficulty swallowing that's intermittent. She reports that usually with solid foods. Patient had esophagram completed today shows no evidence of slippage or obstruction. Afebrile. WBC 4.91 hemoglobin down from 9.5-8.9 platelets 145 PHYSICAL EXAM: VITAL SIGNS: Reviewed. GENERAL: Well-developed in no acute distress. HEENT: No sclera icterus. Extraocular movements grossly intact. Moist buccal mucosa. Head is atraumatic, normocephalic. ABDOMEN: Soft. Nondistended. Tender left side of abdomen at that point port site. Skin shows no evidence of erythema NEUROLOGIC: Alert and oriented. Cranial nerves II through XII grossly intact. ASSESSMENT: 1. Abdominal pain with pain at lap band port site. Esophagram shows no evidence of slippage or obstruction 2. Proctitis due to patient's recent fecal impaction. Now resolving 3. History of constipation and fecal impaction requiring flexible sigmoidoscopy with disimpaction on 06/30/2020 PLAN: -Continue supportive care -No surgical intervention planned Physician Firer [employer]que [place] note has been reviewed by physician. Signing provider agrees with the documented findings, assessment, and plan of care. Objective - Vital Signs Vital signs: Vital Signs Temp 98.7 F 07/06/21 06:34 Pulse 82 07/06/21 06:34 Resp 19 07/06/21 06:34 BP 168/65 07/06/21 06:34 Pulse Ox 96 07/06/21 06:34 Intake & Output 07/05/21 07/06/21 07/06/21 18:59 06:59 18:59 Intake Total 1080 1080 Output Total 300 Balance 780 1080 Intake: Oral 1080 1080 Output: Urine 300 Other: Voiding Method Bedpan Bedside Commode Diaper Diaper Incontinent Incontinent # Voids 5 2 # Bowel Movements 6 - Labs CBC & Chem 7: 07/06/21 05:15 07/05/21 05:31 Labs: Abnormal Lab Results - Last 24 Hours (Table) 07/06/21 Range/Units 05:15 RBC 3.23 L (4.10-5.20) X 10*6/uL Hgb 8.9 L (12.0-15.0) g/dL Hct 28.4 L (37.2-46.3) % MCHC 31.3 L (32.0-37.0) g/dL RDW 17.2 H (11.5-14.5) % Immature Gran # 0.09 H (0.00-0.04) X 10*3/uL Microbiology - Last 24 Hours (Table) 07/03/21 11:38 Gram Stain - Final Buttock Wound Culture - Final Proteus mirabilis Morganella morganii 07/03/21 05:25 Urine Culture - Final Urine,Voided Proteus mirabilis <Moreno Prakash - Last Filed: 07/06/21 12:41> Subjective as above. Patient says her pain is improved. Tolerating diet. Confusion seems to be improved. Upper GI is normal. No plans for removing lap band at this time. Continue stool softeners. Objective - Vital Signs Vital signs: Vital Signs Temp 98.7 F 07/06/21 06:34 Pulse 91 07/06/21 12:40 Resp 19 07/06/21 06:34 BP 168/65 07/06/21 06:34 Pulse Ox 96 07/06/21 06:34 Intake & Output 07/05/21 07/06/21 07/06/21 18:59 06:59 18:59 Intake Total 1080 1080 Output Total 300 Balance 780 1080 Intake: Oral 1080 1080 Output: Urine 300 Other: Voiding Method Bedpan Bedside Commode Diaper Diaper Incontinent Incontinent # Voids 5 2 # Bowel Movements 6 - Labs CBC & Chem 7: 07/06/21 05:15 07/05/21 05:31 Labs: Abnormal Lab Results - Last 24 Hours (Table) 07/06/21 Range/Units 05:15 RBC 3.23 L (4.10-5.20) X 10*6/uL Hgb 8.9 L (12.0-15.0) g/dL Hct 28.4 L (37.2-46.3) % MCHC 31.3 L (32.0-37.0) g/dL RDW 17.2 H (11.5-14.5) % Immature Gran # 0.09 H (0.00-0.04) X 10*3/uL Microbiology - Last 24 Hours (Table) 07/03/21 11:38 Gram Stain - Final Buttock Wound Culture - Final Proteus mirabilis Morganella morganii 07/03/21 05:25 Urine Culture - Final Urine,Voided Proteus mirabilis
--- NOTE | 2021-07-06 12:35 | P.PN ---
Subjective This is a pleasant 75 years old female with past medical history of Coronary Artery Disease, COPD, Fibromyalgia, Hypertension, Sleep Apnea/CPAP/BIPAP, chronic back pain, severe osteoarthritis and the patient has difficult mobility and the patient gets around with the help of a power chair, previous history of obstructive sleep apnea, fibrocystic disease of the breast She was recently discharged from the hospital 3 days ago 06/30, she was admitted to the hospital with abdominal pain and constipation found to have fecal impaction; She underwent flexible sigmoidoscopy with manual inflation for her proctatitis and fecal dysimpaction. Patient states that when she left the hospital she was very weak, she has pain in her bouts and treated as 6/10 for a few days since last admission, however she could not specify when exactly started this pain. Patient states that she did not have bowel movement since last admission after she had fecal disimpaction. No nausea vomiting. Also she has abdominal pain and tenderness it looks generalized and lower abdominal. Also patient states that she cannot walk for more than a year, she moves out using a walker old and electric wheelchair. Patient also has stage I sacral pressure ulcer She fell several times and now she is complaining from pain in her right hip area. Patient states that also she has poor appetite and this is a that she eats well she has not been eating well for the last 2 months Patient vitals are stable and she is afebrile Labs reviewed and shows mild leukocytosis of 11.5, platelets slightly low at 141, rest of labs including BMP and LFTs are unremarkable. Vasquez varus not detected Chest x-ray negative for acute process Patient was started on normal saline 100 mL per hour and admitted to the hospital for placement to rehab with PT/OT evaluation We ordered CT of the abdomen and pelvis without contrast: Circumferential rectal wall thickening consistent with prostatitis. Colonic diverticulosis. Gastric lap band changes similar to prior 07/04/2021 Patient is still complaining of from abdominal pain with no bowel movement, morphine is added but pain management recommended to avoid as it might contribute to constipation which is the main reason for pain for the patient. Also her pain could be related to hepatitis, however when checked and drawn bedside nurse states patient pain is controlled with narcotic. Patient is already on MiraLAX at home we added Colace. Hemodynamically stable, afebrile. CBC showing hemoglobin delusion, double BC 9.2, hemoglobin 8.5 and platelets 133. Also broughtcalcitonin is elevated at 0.16 and CRP at 11.7 which goes with infection. Her wound culture is growing gram-negative bacilli, her urine culture is growing gram-negative bacilli as she has infected pressure ulcers and possible UTI and also prostatitis. We sent for C. diff and stool culture and sensitivity which are pending for now. Patient evaluated by orthopedic surgery who recommended pain management, no surgical intervention. Also infectious disease team on the case Patient continued on ceftriaxone 2 g, Flagyl, normal splenic 100 mL per hour. Patient's wants to be DO NOT RESUSCITATE Prognosis remains guarded and we will keep follow up closely 07/05/2021 Patient is more awake and sitting up in bed, she is more comfortable stating that her pain is a 3/10 and much improved compared to yesterday, she had one big large movement last night, she workup with a big base where stool and urine were mixed up, however she feels more relieved. No nausea vomiting and actually she tolerates diet very well. Other than that she is hemodynamically stable. Urine culture is growing Proteus which is sensitive to many antibiotics. On examination she has a tender lump above the umbilicus so we consulted Dr. Prakash we saw her last time She remains on ceftriaxone and Flagyl. Discontinue IV fluids as patient is eating well. Remains on Colace and MiraLAX. 07/06/2021 Patient is more awake and sitting up in bed, less or minimal distress due to pain however she still complaining of from periumbilical pain and tenderness. No nausea vomiting but she is eating 25% of her medial only. Units ago she had one bowel movement however no bowel movement yesterday as per patient. Vitals are stable. The WBC coming down to 4.9k. Blood culture is growing Proteus Morganella morganii, both are sensitive to Rocephin. Urine culture growing Proteus which is also sensitive to antibiotic. Stool culture: Pending A barium swallow by surgical team showing no evidence of lap band slippage or significant obstruction. Surgeon recommended no surgical intervention to continue with medical management Continue with ceftriaxone 2 g and Flagyl, continue with MiraLAX and Colace. Objective - Vital Signs Vital signs: Vital Signs Temp 98.7 F 07/06/21 06:34 Pulse 82 07/06/21 06:34 Resp 19 07/06/21 06:34 BP 168/65 07/06/21 06:34 Pulse Ox 96 07/06/21 06:34 Intake & Output 07/05/21 07/06/21 07/06/21 18:59 06:59 18:59 Intake Total 1080 1080 Output Total 300 Balance 780 1080 Intake: Oral 1080 1080 Output: Urine 300 Other: Voiding Method Bedpan Bedside Commode Diaper Diaper Incontinent Incontinent # Voids 5 2 # Bowel Movements 6 - Exam GENERAL: The patient is alert and oriented x3, not in any acute distress. Well developed, well nourished. HEENT: Pupils are round and equally reacting to light. EOMI. No scleral icterus. No conjunctival pallor. Normocephalic, atraumatic. No pharyngeal erythema. No thyromegaly. CARDIOVASCULAR: S1 and S2 present. No murmurs, rubs, or gallops. PULMONARY: Chest is clear to auscultation, no wheezing or crackles. -ABDOMEN: Soft, generalized abdominal tenderness, more in the lower abdomen, no rebound tenderness or guarding, nondistended, normoactive bowel sounds. No palpable organomegaly. Rectal exam done after patient gave verbal consent and it was very painful for the patient MUSCULOSKELETAL: No joint swelling or deformity. EXTREMITIES: No cyanosis, clubbing, or pedal edema. NEUROLOGICAL: Gross neurological examination did not reveal any focal deficits. SKIN: No rashes. no petechiae. - Labs CBC & Chem 7: 07/06/21 05:15 07/05/21 05:31 Labs: Abnormal Lab Results - Last 24 Hours (Table) 07/06/21 Range/Units 05:15 RBC 3.23 L (4.10-5.20) X 10*6/uL Hgb 8.9 L (12.0-15.0) g/dL Hct 28.4 L (37.2-46.3) % MCHC 31.3 L (32.0-37.0) g/dL RDW 17.2 H (11.5-14.5) % Immature Gran # 0.09 H (0.00-0.04) X 10*3/uL Microbiology - Last 24 Hours (Table) 07/03/21 11:38 Gram Stain - Final Buttock Wound Culture - Final Proteus mirabilis Morganella morganii 07/03/21 05:25 Urine Culture - Final Urine,Voided Proteus mirabilis Assessment and Plan Assessment: acute proctatitis urinary tract infection secondary to Proteus Infected pressure ulcer with Proteus and Morganella Spinal stenosis at L4-L5 with ongoing difficulty in mobility for more than a ye ar. Patient uses an electric wheelchair and walker. Evaluated by orthopedic team and cleared for discharge Multiple falls without syncope Right hip pain secondary to fall, fracture follow-up with negative x-rays and patients with no symptoms Generalized weakness History of coronary artery disease Hypertension History of fibromyalgia COPD, no acute exacerbation Sleep apnea Chronic back pain History of severe osteoarthritis and difficulty in mobility Plan: This is a pleasant 75 result female who presents with generalized weakness. Start ceftriaxone and Flagyl. , pressure ulcers and stool culture and sensitivity and C. diff. ID team consult Continue with laxatives Pain management with [place]. Patient and management team recommended to avoid morphine Discontinue IV hydration Labs and medication were reviewed.. Continue same treatment. Continue with symptomatic treatment. Resume home medication. Monitor lytes and vitals. DVT and GI prophylaxis. Further recommendations depends on the clinical course of the patient DVT prophylaxis: Subcutaneous heparin GI Prophylaxis: Ppi PT/OT: Possible subacute rehab, child protective services social worker and case Prognosis is guarded
[2021-07-06] MEDS: metroNIDAZOLE 500 MG TAB PO SCH (15:51)
[2021-07-06] MEDS: TAMSULOSIN 0.4 MG CAP.ER.24H PO SCH (17:27)
--- NOTE | 2021-07-06 22:53 | PN ---
PROGRESS NOTE DATE OF SERVICE: 07/06/2021 REASON FOR FOLLOWUP: Proctitis and UTI. INTERVAL HISTORY: The patient is afebrile. She has been complaining of abdominal pain. Also complaining of some nausea but no vomiting. Denies chest pain, shortness of breath or cough or worsening diarrhea. PHYSICAL EXAMINATION: Her blood pressure is 132/65, pulse of 71, temperature 98.2. She is 100% on 3 L nasal cannula. General description is an elderly female lying in bed in no distress. Respiratory system: Unlabored breathing, clear to auscultation anteriorly. Heart S1, S2. Regular rate and rhythm. Abdomen soft, no tenderness. LABS: Hemoglobin is 8.9, white count 4.91, creatinine 0.6. DIAGNOSTIC IMPRESSION AND PLAN: Patient with Proteus mirabilis urinary tract infection and also with proctitis, possibly related to fecal impaction. Patient to continue with Rocephin and Flagyl while monitoring clinical course closely. Continue supportive care. MMODL / IJN: [id number] /
[2021-07-07] MEDS: metroNIDAZOLE 500 MG TAB PO SCH ×2 (01:09→07:49)
[2021-07-07 02:14] VITALS: RESP 17
[2021-07-07] MEDS: HYDROcodone/APAP 5-325MG 1 EACH TAB PO PRN (04:54)
[2021-07-07] MEDS: HEPARIN SODIUM,PORCINE/PF 5,000 UNIT/0.5 ML SYRINGE SQ SCH (07:32)
[2021-07-07] MEDS: SUCRALFATE 1 GM TAB PO SCH (07:49)
[2021-07-07] MEDS: polyethylene glycoL 3350 17 GM POWD.PACK PO SCH (07:49)
[2021-07-07] MEDS: DOCUSATE 100 MG CAP PO SCH (07:49)
[2021-07-07] MEDS: PANTOPRAZOLE 40 MG TABLET PO SCH (07:49)
[2021-07-07] MEDS: allopurinoL 100 MG TAB PO SCH (07:50)
[2021-07-07] MEDS: atenoloL 25 MG TAB PO SCH (07:50)
[2021-07-07 08:12] VITALS: BP 149/76; TEMP 98.1
[2021-07-07] MEDS ORDERED: DOCUSATE 100 MG CAP PO PRN (09:10)
[2021-07-07] MEDS: IPRATROPIUM 0.5 MG/2.5 ML NEBU INHALATION SCH ×2 (09:32→12:14)
[2021-07-07] MEDS: SYMBICORT 80-4.5 MCG INHALER INHALATION SCH (09:32)
[2021-07-07 09:42] VITALS: PULSE 85
--- NOTE | 2021-07-07 11:35 | P.PN ---
<Maya Pierce - Last Filed: 07/07/21 11:30> Subjective Progress Note Date: 07/07/21 CHIEF COMPLAINT: Abdominal pain HISTORY OF PRESENT ILLNESS: Surgical service following regards to patient's abdominal pain. Patient has been having bowel movements. Patient complains of some nausea and pain on left abdomen at port site. She was able to eat most of her breakfast tray this morning. She was able to have a bowel movement. She did not have any pain after eating. Afebrile. WBC 4.93 hemoglobin 8.9 platelets 145 PHYSICAL EXAM: VITAL SIGNS: Reviewed. GENERAL: Well-developed in no acute distress. HEENT: No sclera icterus. Extraocular movements grossly intact. Moist buccal mucosa. Head is atraumatic, normocephalic. ABDOMEN: Soft. Nondistended. Mild Tenderness left side of abdomen at that point port site. Skin shows no evidence of erythema NEUROLOGIC: Alert and oriented. Cranial nerves II through XII grossly intact. ASSESSMENT: 1. Abdominal pain with pain at lap band port site. Esophagram shows no evidence of slippage or obstruction 2. Proctitis due to patient's recent fecal impaction. Now resolving 3. History of constipation and fecal impaction requiring flexible sigmoidoscopy with disimpaction on 06/30/2020 PLAN: -Continue supportive care -No surgical intervention planned. Upper GI is normal -Continue stool softeners Physician Head Of Art note has been reviewed by physician. Signing provider agrees with the documented findings, assessment, and plan of care. Objective - Vital Signs Vital signs: Vital Signs Temp 98.1 F 07/07/21 08:00 Pulse 85 07/07/21 09:41 Resp 17 07/07/21 08:00 BP 149/76 07/07/21 08:00 Pulse Ox 93 L 07/07/21 08:00 Intake & Output 07/06/21 07/07/21 07/07/21 18:59 06:59 18:59 Intake Total 1080 1080 Balance 1080 1080 Intake: Oral 1080 1080 Other: Voiding Method Bedside Commode Diaper Incontinent # Voids 2 3 # Bowel Movements 1 - Labs CBC & Chem 7: 07/06/21 05:15 07/05/21 05:31 Labs: Microbiology - Last 24 Hours (Table) 07/03/21 16:14 Stool Culture - Final Stool 07/03/21 11:38 Gram Stain - Final Buttock Wound Culture - Final Proteus mirabilis Morganella morganii <Moreno Prakash - Last Filed: 07/07/21 13:08> Subjective As above. Patient remains somewhat confused. There is talk about transferring to ECF today. She is tolerating her diet. No change in the mild discomfort at the LAP-BAND port site. No surgical intervention planned at this time. We'll sign off. Please call if needed. Objective - Vital Signs Vital signs: Vital Signs Temp 98.1 F 07/07/21 08:00 Pulse 85 07/07/21 09:41 Resp 17 07/07/21 08:00 BP 149/76 07/07/21 08:00 Pulse Ox 93 L 07/07/21 08:00 Intake & Output 07/06/21 07/07/21 07/07/21 18:59 06:59 18:59 Intake Total 1080 1080 Balance 1080 1080 Intake: Oral 1080 1080 Other: Voiding Method Bedside Commode Diaper Incontinent # Voids 2 3 # Bowel Movements 1 - Labs CBC & Chem 7: 07/06/21 05:15 07/05/21 05:31 Labs: Microbiology - Last 24 Hours (Table) 07/03/21 16:14 Stool Culture - Final Stool 07/03/21 11:38 Gram Stain - Final Buttock Wound Culture - Final Proteus mirabilis Morganella morganii
[2021-07-07] MEDS: ONDANSETRON ODT 8 MG TAB.RAPDIS PO PRN (12:11)
--- NOTE | 2021-07-07 12:41 | P.DS ---
Providers Date of admission: 07/02/21 18:17 Attending physician: Tony Vasquez MD Consults: 07/03/21 11:13 Consult Physician Urgent Consulting Provider: Joanna Huerta Consult Reason/Comments: UTI, possible proCtatitis, pressure ulcer Do you want consulting provider notified?: Yes 07/03/21 11:16 Consult Physician Urgent Consulting Provider: Israel Peña Consult Reason/Comments: Ongoing working difficulty, L4-5 spinal stenosis (CT on 06/28) Do you want consulting provider notified?: Yes 07/05/21 10:40 Consult Physician Urgent Consulting Provider: Moreno Prakash Consult Reason/Comments: abd pain and tenderness Do you want consulting provider notified?: Yes Primary care physician: Tati Prakash Hospital Course: Diagnoses: acute proctatitis urinary tract infection secondary to Proteus Infected pressure ulcer with Proteus and Morganella Spinal stenosis at L4-L5 with ongoing difficulty in mobility for more than a year. Patient uses an electric wheelchair and walker. Evaluated by orthopedic team and cleared for discharge Multiple falls without syncope Right hip pain secondary to fall, fracture follow-up with negative x-rays and patients with no symptoms Generalized weakness History of coronary artery disease Hypertension History of fibromyalgia COPD, no acute exacerbation Sleep apnea Chronic back pain History of severe osteoarthritis and difficulty in mobility Hospital course: This is a pleasant 75 years old female with past medical history of Coronary Artery Disease, COPD, Fibromyalgia, Hypertension, Sleep Apnea/CPAP/BIPAP, chronic back pain, severe osteoarthritis and the patient has difficult mobility and the patient gets around with the help of a power chair, previous history of obstructive sleep apnea, fibrocystic disease of the breast She was recently discharged from the hospital 3 days ago 06/30, she was admitted to the hospital with abdominal pain and constipation found to have fecal impaction; She underwent flexible sigmoidoscopy with manual inflation for her proctatitis and fecal dysimpaction with Dr. Prakash. Patient states that when she left the hospital she was very weak, she has pain in her butts and rated it as 6/10 for a few days since last admission, Patient states that she did not have bowel movement since last admission after she had fecal disimpaction. Also patient states that she cannot walk for more than a year, she moves out using a walker old and electric wheelchair. Patient also has stage I sacral pressure ulcer She fell several times and now she is complaining from pain in her right hip area but x-ray was negative for fracture. CT of the abdomen and pelvis showed circumferential rectal wall thickening consistent with prostatitis and gastric lap band changes similar to prior. Patient was started with antibiotic ceftriaxone and Flagyl with infectious disease team are following her closely. Stool culture came back positive. However she has evidence of UTI secondary to Proteus and pressure ulcer and infection secondary to Proteus Morganella, all sensitive to antibiotics given to the patient With treatment patient showed interval improvement, her abdominal pain improved, he rectal pain improved as well, patient tolerates diet well. She has several bowel movements after she received MiraLAX and Colace, actually she's been having more than 2 bowel movement per day so we stopped her MiraLAX and change her Colace to twice a day as needed. Dr. Prakash saw her for abdominal pain and tenderness and he ordered upper GI series: No evidence of lap band slippage or significant obstruction Patient is doing well clinically and she is able to be discharged today. No chest pain or shortness of breath. No fever. Orthopedic team evaluated the patient for spinal stenosis at L4 to L5 and the recommended pain management and follow-up as an outpatient Patient was cleared for discharge by all consultants including orthopedic team, Dr. Prakash and infectious disease team Problems and management plan were discussed with the patient and he verbalized understanding and acceptance Patient was found stable and can be discharged home however he needs follow-up as an outpatient. Patient was instructed to follow up with PCP within one week and patient agrees Patient was instructed to follow up with Dr. Prakash surgeon on 07/14 Patient was instructed to follow up with LUPE Clark on 07/29 Physical exam -Gen: patient is a AAOx3, no distress. Generalized weakness CVS: S1-S2, RRR, no murmur Lungs: B/L CTA, no wheezing -Abdomen: soft, no distention, abdominal and rectal tenderness which are improving, positive bowel sounds Extremity: no leg edema or induration -Neurological: Cranial nerves are grossly intact, upper extremity strength 5/5, both legs are markedly weak but this is chronic. Meningeal signs are absent Time spent more than 35 minutes Patient Condition at Discharge: Stable Plan - Discharge Summary Discharge Rx Participant: No New Discharge Prescriptions: No Action Omeprazole 20 mg PO DAILY Sucralfate [Carafate] 1 gm PO DAILY atenoloL [Tenormin] 25 mg PO DAILY Allopurinol [Zyloprim] 100 mg PO DAILY Ondansetron Odt [Zofran ODT] 8 mg PO Q8HR PRN PRN Reason: Nausea And Vomiting Nystatin 100,000 Unit/gm Powd [Mycostatin Powder] 1 applic TOPICAL TID HYDROcodone/APAP 5-325MG [[place] 5-325] 1 tab PO Q8H PRN PRN Reason: Pain Fluticasone/Vilanterol [Breo Ellipta 100-25 Mcg Inhaler] 1 puff INHALATION RT-BID Tiotropium 2.5 Mcg/Puff [Spiriva Respimat 2.5 Mcg] 1 puff INHALATION RT-DAILY polyethylene glycoL 3350 [Miralax] 17 gm PO DAILY packet Discharge Medication List Omeprazole 20 mg PO DAILY 08/13/17 [History] Allopurinol [Zyloprim] 100 mg PO DAILY 06/14/21 [History] Fluticasone/Vilanterol [Breo Ellipta 100-25 Mcg Inhaler] 1 puff INHALATION RT- BID 06/14/21 [History] HYDROcodone/APAP 5-325MG [[place] 5-325] 1 tab PO Q8H PRN 06/14/21 [History] Sucralfate [Carafate] 1 gm PO DAILY 06/14/21 [History] atenoloL [Tenormin] 25 mg PO DAILY 06/14/21 [History] Ondansetron Odt [Zofran ODT] 8 mg PO Q8HR PRN 06/28/21 [History] Tiotropium 2.5 Mcg/Puff [Spiriva Respimat 2.5 Mcg] 1 puff INHALATION RT-DAILY 06/28/21 [History] Nystatin 100,000 Unit/gm Powd [Mycostatin Powder] 1 applic TOPICAL TID 07/01/21 [Rx] polyethylene glycoL 3350 [Miralax] 17 gm PO DAILY packet 07/01/21 [Rx] Follow up Appointment(s)/Referral(s): Moreno Prakash MD [Medical Doctor] - 1 Week Eduardo Willis PAC [PHYSICIAN SALES LEADER] - 07/29/21 10:00 am (Patient may follow-up with Eduardo Willis PA-C or Dr. Wilber Peña at [facility] in 3 weeks following discharge. Please call office to update insurance info. Thank you. )
--- NOTE | 2021-07-07 17:06 | PN ---
PROGRESS NOTE DATE OF SERVICE: 07/07/2021. REASON FOR FOLLOWUP: Proteus mirabilis UTI and a question of orchitis. INTERVAL HISTORY: The patient is afebrile, breathing comfortably. No chest pain, shortness of breath or cough. No abdominal pain and no worsening diarrhea according to nursing staff. PHYSICAL EXAMINATION: Blood pressure 149/76, pulse of 84, temperature 98.1. She is 93% on 3 L nasal cannula. General description is an elderly female lying in bed in no distress. Respiratory system: Unlabored breathing, clear to auscultation anteriorly. Heart S1, S2. Regular rate and rhythm. Abdomen soft, no tenderness. The patient did have a small wound to the gluteal area with no cellulitis. LABS: Hemoglobin is 8.9, white count 4.91, creatinine 0.6. Urine with Proteus. DIAGNOSTIC IMPRESSION AND PLAN: Patient with Proteus mirabilis UTI and orchitis. Overall improvement on Rocephin and Flagyl. Finish therapy with a short course of oral Ceftin and Flagyl and close outpatient follow up. MMODL / IJN: [id number] /
== END 2021-07-07 15:23 | DRG 394 ==
LOC: EC 15:41 → 4SSUR 18:17
PROVIDERS: ADMIT Internal Medicine; ATTEND Internal Medicine
DX: K62.89 Other specified diseases of anus and rectum (principal); N39.0 Urinary tract infection, site not specified; B96.4 Proteus (mirabilis) (morganii) as the cause of diseases classified elsewhere; F32.A Depression, unspecified; F41.9 Anxiety disorder, unspecified; G47.33 Obstructive sleep apnea (adult) (pediatric); G89.29 Other chronic pain; I10 Essential (primary) hypertension; I25.10 Atherosclerotic heart disease of native coronary artery without angina pectoris; J44.9 Chronic obstructive pulmonary disease, unspecified; K57.30 Diverticulosis of large intestine without perforation or abscess without bleeding; K59.00 Constipation, unspecified; L89.151 Pressure ulcer of sacral region, stage 1; M43.16 Spondylolisthesis, lumbar region; M48.061 Spinal stenosis, lumbar region without neurogenic claudication; M48.07 Spinal stenosis, lumbosacral region; M51.36 Other intervertebral disc degeneration, lumbar region; Z20.822 Contact with and (suspected) exposure to COVID-19; M19.90 Unspecified osteoarthritis, unspecified site; R29.6 Repeated falls; R62.7 Adult failure to thrive; W19.XXXA Unspecified fall, initial encounter; M25.551 Pain in right hip; Z66 Do not resuscitate; Z79.899 Other long term (current) drug therapy; R13.10 Dysphagia, unspecified; M79.7 Fibromyalgia; Z87.891 Personal history of nicotine dependence; Z90.710 Acquired absence of both cervix and uterus; Z91.81 History of falling; Z96.653 Presence of artificial knee joint, bilateral; Z98.890 Other specified postprocedural states; Z88.5 Allergy status to narcotic agent; Z88.2 Allergy status to sulfonamides; Z98.84 Bariatric surgery status; Z60.2 Problems related to living alone
CPT/HCPCS: 71046; 73502; 74176; 74240; 80048; 80053; 81001; 83605; 83735; 83993; 84145; 84443; 84484; 85025; 85610; 85730; 86140; 87045; 87046; 87070; 87075; 87077; 87086; 87186; 87205; 87635; 93005; 94640; 94760; 99285